=== PATIENT | female | born 2000 | race Caucasian/White ===

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

== ENCOUNTER 2019-02-26 12:25 | Emergency (ER) | payer MEDICAID ==
[2019-02-26] MEDS ORDERED: PROTONIX 40 MG IV IV ONE ×2 (13:05→13:10)
[2019-02-26] MEDS ORDERED: Sodium Chloride 0.9% 1000 ML 1,000 ML IV STA (13:05)
[2019-02-26] MEDS ORDERED: Zofran 4 MG/2 ML VIAL IV ONE (13:05)
[2019-02-26] MEDS ORDERED: Zofran 4 MG/2 ML VIAL ONE (13:10)
[2019-02-26] MEDS ORDERED: Sodium Chloride 0.9% 1000 ML 1,000 ML ONE (13:11)
[2019-02-26 14:46] LABS: Appearance SLIGHTLY CLOUDY (CLEAR); Bacteria RARE /HPF (NEGATIVE); Bilirubin NEGATIVE (NEGATIVE); Blood LARGE Ery/ul (0-5); Glucose NEGATIVE (NEGATIVE); Ketones NEGATIVE (NEGATIVE); Leukocyte Esterase NEGATIVE (NEGATIVE); Mucus SLIGHT /HPF (NEGATIVE); Nitrite NEGATIVE (NEGATIVE); Protein,Urine Dip 30 (Negative); RBC 26-50 /HPF (0-2); Specific Gravity 1.017 (1.005-1.025); Urobilinogen NEGATIVE mg/dL (0-1)
[2019-02-26 14:46] LABS: ALBUMIN 3.8 g/dL (3.5-5.0); ALKALINE PHOSPHATASE 81 U/L (38-126); AMYLASE 78 U/L (30-110); ANION GAP 13.3 MEQ/L (5-15); BLOOD UREA NITROGEN 17 mg/dL (7-17); CHLORIDE 104 mmol/L (98-107); Calcium 9.5 mg/dL (8.4-10.2); Carbon Dioxide 26 mmol/L (22-30); Glucose 72 mg/dL (74-106); LIPASE 150 U/L (23-300); SGOT/AST 23 U/L (14-36); SGPT/ALT 13 U/L (0-35); SODIUM 139 mmol/L (137-145); Total Protein 7.6 g/dL (6.3-8.2)
[2019-02-26 14:50] LABS: Potassium 4.3 mmol/L (3.5-5.1)
[2019-02-26 14:51] LABS: Absolute Neutrophil Ct (ANC) 8.35 (1.4-6.9); BASOPHIL % 0.6 % (0.0-0.4); Basophil (Absolute #) 0.08 (0-0.4); Eosinophil % 4.2 % (0.00-5.0); Eosinophil (Absolute #) 0.57 (0-0.5); Hematocrit 39.2 % (35-47); Hemoglobin 12.6 gm/dl (12.0-16.0); Lymphocyte (Absolute #) 3.27 (1.0-4.6); Mean Cell Volume 86.7 fl (78-100); Mean Corpuscular Hemoglobin 27.9 pg (26-32); Mean Corpuscular Hgb Concent. 32.1 g/dl (32-36); Mean Platelet Volume 9.2 fl (7.5-11.0); Monocyte (Absolute #) 1.38 (0.0-1.3); Monocytes % 10.1 % (0.0-12.0); Neutrophil % 61.1 % (36.0-66.0); Platelet Count 293 K/mm3 (150-450); Red Blood Count 4.52 M/mm3 (4.1-5.4); Red Cell Distribution Width 14.3 % (11.5-14.0); White Blood Count 13.7 K/mm3 (4.0-10.5)
[2019-02-26 15:36] VITALS: PULSE 81
--- NOTE | 2019-02-26 16:38 | XRAY ---
Indication: Abdomen pain, nausea, and vomiting. Multiple contiguous axial images obtained through the abdomen and pelvis using 80 cc of Isovue-370 contrast only. Comparison: November 16, 2018. Lung bases again demonstrates minimal bibasilar fibrosis/scarring and benign left lower lobe subpleural noncalcified micronodule. No infiltrate or effusion. Heart is not enlarged. Noncontrasted stomach and bowel loops remain nonobstructed with normal appendix. New collapsing right ovary cyst with small cul-de-sac fluid. No walled off fluid collection or free air. Stable cholecystectomy clips. Remaining liver, pancreas, spleen, adrenal glands, kidneys, ureters, bladder, uterus, and aorta appear unremarkable. No pathological retroperitoneal lymphadenopathy. Osseous structures intact. Impression: 1. New collapsing right ovary cyst with small cul-de-sac fluid. 2. Remaining CT abdomen/pelvis with contrast exam is negative.
--- NOTE | 2019-02-26 16:46 | ERPHSYRPT ---
- History of Present Illness Time Seen by Provider: 02/26/19 12:45 Historian: patient Exam Limitations: no limitations Patient Subjective Stated Complaint: pt here for diffuse abd pain, off and on for weeks now, worse the last week. vomited x1 yesterday and today, no fever, she has been to and was told she had enlarged lymph nodes Triage Nursing Assessment: pt alert, walked in, resp easy, skin w/d/p. abd soft , no edema Physician History: patient is a 18-year-old white female who presents with a complaint of abdominal pain. She complains of "bad pain" in the upper abdomen which started a week ago she has had no fever chills or sweats she has had some nausea vomiting but no diarrhea no change in urination she has a gallbladder that has been removed in June of last year she's also a kidney biopsy and a bladder scope. She has autoimmune IgA nephropathy. Timing/Duration: week(s) (1), intermittent Quality: cramping, stabbing Abdominal Pain Onset Location: epigastric Pain Radiation: no radiation Modifying Factors: Improves With: vomiting Associated Symptoms: nausea Previous symptoms: no prior history Allergies/Adverse Reactions: amoxicillin Allergy (Verified 02/26/19 12:39) Hives cefaclor [From Ceclor] Allergy (Verified 02/26/19 12:39) Hives cefazolin Allergy (Verified 02/26/19 12:39) paroxetine [From Paxil] Allergy (Verified 02/26/19 12:39) hallucinations Home Medications: Albuterol Sulfate [Ventolin Hfa] 8 gm IH UD PRN 07/23/16 [History] Montelukast Sodium [Singulair] 10 mg PO DAILY 07/23/16 [History] Diazepam [Valium] 2 mg PO DAILY PRN 05/26/17 [History] Lisinopril [Zestril] 5 mg PO DAILY 06/09/18 [History] Sertraline HCl [Zoloft] 100 mg PO DAILY 06/09/18 [History] [place]-3 Fatty Acids/Fish Oil [Fish Oil 1,000 mg Capsule] 2,000 mg PO BID [History] Hx Tetanus, Diphtheria Vaccination/Date Given: Yes Hx Influenza Vaccination/Date Given: Yes Hx Pneumococcal Vaccination/Date Given: No Immunizations Up to Date: Yes - Review of Systems Constitutional: No Fever, No Chills Eyes: No Symptoms Ears, Nose, & Throat: No Symptoms Respiratory: No Cough, No Dyspnea Cardiac: No Chest Pain, No Edema, No Syncope Abdominal/Gastrointestinal: Abdominal Pain, Vomiting, No Diarrhea Genitourinary Symptoms: No Dysuria Musculoskeletal: No Back Pain, No Neck Pain Skin: No Rash Neurological: No Dizziness, No Focal Weakness, No Sensory Changes Psychological: No Symptoms Endocrine: No Symptoms All Other Systems: Reviewed and Negative - Past Medical History Pertinent Past Medical History: Yes Neurological History: No Pertinent History ENT History: No Pertinent History Cardiac History: Hypertension Respiratory History: Asthma Endocrine Medical History: No Pertinent History Musculoskeletal History: No Pertinent History GI Medical History: Gallbladder Disease History: Renal Disease Psycho-Social History: Anxiety Female Reproductive Disorders: No Pertinent History Other Medical History: IGA Nephropathy - Past Surgical History Past Surgical History: Yes Neuro Surgical History: No Pertinent History Cardiac: No Pertinent History Respiratory: No Pertinent History Gastrointestinal: Cholecystectomy Genitourinary: Other Musculoskeletal: No Pertinent History Female Surgical History: No Pertinent History Other Surgical History: Kidney Biopsy, Bladder scope - Social History Smoking Status: Never smoker Exposure to second hand smoke: Yes Drug Use: none Patient Lives Alone: No - Female History Hx Last Menstrual Period: week ago Hx Now: No - Nursing Vital Signs Nursing Vital Signs: Initial Vital Signs Temperature 98.8 F 02/26/19 12:33 Pulse Rate 89 02/26/19 12:33 Respiratory Rate 16 02/26/19 12:33 Blood Pressure 115/68 02/26/19 12:33 O2 Sat by Pulse Oximetry 115 H 02/26/19 12:33 Pain Scale Pain Intensity 7 - Physical Exam General Appearance: no apparent distress, alert Eye Exam: PERRL/EOMI, eyes nml inspection Ears, Nose, Throat Exam: normal ENT inspection, pharynx normal, moist mucous membranes Neck Exam: normal inspection, non-tender, supple, full range of motion Respiratory Exam: normal breath sounds, lungs clear, No respiratory distress Cardiovascular Exam: regular rate/rhythm, normal heart sounds Gastrointestinal/Abdomen Exam: normal bowel sounds, tenderness, No mass, No guarding, No rebound Back Exam: normal inspection, normal range of motion, No CVA tenderness, No vertebral tenderness Extremity Exam: normal inspection, normal range of motion, pelvis stable Neurologic Exam: alert, oriented x 3, cooperative, normal mood/affect, nml cerebellar function, sensation nml, No motor deficits Skin Exam: normal color, warm, dry SpO2: 99 - Course Nursing assessment & vital signs reviewed: Yes - CT Exams Abdomen/Pelvis CT Interpretation: Other (small right ovarian cyst otherwise negative) Ordered Tests: Active Orders 24 hr Category Date Time Status IV Insertion STAT Care 02/26/19 13:05 Active ABDOMEN AND PELVIS W CONTRAST [CT] Stat Exams 02/26/19 13:06 Completed CHEST 1 VIEW (PORTABLE) Stat Exams 02/26/19 13:06 Taken AMYLASE Stat Lab 02/26/19 14:30 Completed CBC W DIFF Stat Lab 02/26/19 13:05 Completed CMP Stat Lab 02/26/19 14:30 Completed CULTURE,URINE Stat Lab 02/26/19 13:25 Received HCG QUALITATIVE,SERUM Stat Lab 02/26/19 Completed LIPASE Stat Lab 02/26/19 14:30 Completed Lactic Acid Stat Lab 02/26/19 13:41 Completed UA W/RFX UR CULTURE Stat Lab 02/26/19 13:25 Completed Medication Summary Discontinued Medications Generic Name Dose Route Start Last Admin Trade Name Freq PRN Reason Stop Dose Admin Sodium Chloride 1,000 mls @ 999 mls/hr 02/26/19 13:05 02/26/19 14:45 Sodium Chloride 0.9% 1000 Ml IV 02/26/19 14:05 Infused .Q1H1M STA Infusion Sodium Chloride Confirm 02/26/19 13:11 Sodium Chloride 0.9% 1000 Ml Administered 02/26/19 13:12 Dose 1,000 mls @ ud .ROUTE .STK-MED ONE Ondansetron HCl 4 mg 02/26/19 13:05 02/26/19 13:14 Zofran 4 Mg/2 Ml Vial IV 02/26/19 13:06 4 mg STAT ONE Administration Ondansetron HCl Confirm 02/26/19 13:10 Zofran 4 Mg/2 Ml Vial Administered 02/26/19 13:11 Dose 4 mg .ROUTE .STK-MED ONE Pantoprazole Sodium 40 mg 02/26/19 13:05 02/26/19 13:14 Protonix 40 Mg Iv IV 02/26/19 13:06 40 mg STAT ONE Administration Pantoprazole Sodium Confirm 02/26/19 13:10 Protonix 40 Mg Iv Administered 02/26/19 13:11 Dose 40 mg IV .STK-MED ONE Lab/Rad Data: Laboratory Result Diagrams 02/26/19 13:05 02/26/19 14:30 Laboratory Results 02/26/19 02/26/19 02/26/19 Range/Units Unknown 14:30 13:41 WBC (4.0-10.5) K/mm3 RBC (4.1-5.4) M/mm3 Hgb (12.0-16.0) gm/dl Hct (35-47) % MCV (78-100) fl MCH (26-32) pg MCHC (32-36) g/dl RDW (11.5-14.0) % Plt Count (150-450) K/mm3 MPV (7.5-11.0) fl Gran % (36.0-66.0) % Eos # (Auto) (0-0.5) Absolute Lymphs (auto) (1.0-4.6) Absolute Monos (auto) (0.0-1.3) Lymphocytes % (24.0-44.0) % Monocytes % (0.0-12.0) % Eosinophils % (0.00-5.0) % Basophils % (0.0-0.4) % Absolute Granulocytes (1.4-6.9) Basophils # (0-0.4) Sodium 139 (137-145) mmol/L Potassium 4.3 (3.5-5.1) mmol/L Chloride 104 (98-107) mmol/L Carbon Dioxide 26 (22-30) mmol/L Anion Gap 13.3 (5-15) MEQ/L BUN 17 (7-17) mg/dL Creatinine 0.60 (0.52-1.04) mg/dL Estimated GFR > 60.0 ML/MIN Glucose 72 L (74-106) mg/dL Lactic Acid 1.4 (0.4-2.0) Calcium 9.5 (8.4-10.2) mg/dL Total Bilirubin 0.50 (0.2-1.3) mg/dL AST 23 (14-36) U/L ALT 13 (0-35) U/L Alkaline Phosphatase 81 (38-126) U/L Serum Total Protein 7.6 (6.3-8.2) g/dL Albumin 3.8 (3.5-5.0) g/dL Amylase 78 (30-110) U/L Lipase 150 (23-300) U/L Serum , Qual NEGATIVE (Negative) Urine Color (YELLOW) Urine Appearance (CLEAR) Urine pH (5-6) Ur Specific [place] (1.005-1.025) Urine Protein (Negative) Urine Ketones (NEGATIVE) Urine Blood (0-5) Kan/ul Urine Nitrite (NEGATIVE) Urine Bilirubin (NEGATIVE) Urine Urobilinogen (0-1) mg/dL Ur Leukocyte Esterase (NEGATIVE) Urine WBC (Auto) (0-5) /HPF Urine RBC (Auto) (0-2) /HPF U Epithel Cells (Auto) (FEW) /HPF Urine Bacteria (Auto) (NEGATIVE) /HPF Urine Mucus (Auto) (NEGATIVE) /HPF Urine Culture Reflexed (NO) Urine Glucose (NEGATIVE) mg/dL 02/26/19 02/26/19 Range/Units 13:25 13:05 WBC 13.7 H (4.0-10.5) K/mm3 RBC 4.52 (4.1-5.4) M/mm3 Hgb 12.6 (12.0-16.0) gm/dl Hct 39.2 (35-47) % MCV 86.7 (78-100) fl MCH 27.9 (26-32) pg MCHC 32.1 (32-36) g/dl RDW 14.3 H (11.5-14.0) % Plt Count 293 (150-450) K/mm3 MPV 9.2 (7.5-11.0) fl Gran % 61.1 (36.0-66.0) % Eos # (Auto) 0.57 H (0-0.5) Absolute Lymphs (auto) 3.27 (1.0-4.6) Absolute Monos (auto) 1.38 H (0.0-1.3) Lymphocytes % 24.0 (24.0-44.0) % Monocytes % 10.1 (0.0-12.0) % Eosinophils % 4.2 (0.00-5.0) % Basophils % 0.6 (0.0-0.4) % Absolute Granulocytes 8.35 H (1.4-6.9) Basophils # 0.08 (0-0.4) Sodium (137-145) mmol/L Potassium (3.5-5.1) mmol/L Chloride (98-107) mmol/L Carbon Dioxide (22-30) mmol/L Anion Gap (5-15) MEQ/L BUN (7-17) mg/dL Creatinine (0.52-1.04) mg/dL Estimated GFR ML/MIN Glucose (74-106) mg/dL Lactic Acid (0.4-2.0) Calcium (8.4-10.2) mg/dL Total Bilirubin (0.2-1.3) mg/dL AST (14-36) U/L ALT (0-35) U/L Alkaline Phosphatase (38-126) U/L Serum Total Protein (6.3-8.2) g/dL Albumin (3.5-5.0) g/dL Amylase (30-110) U/L Lipase (23-300) U/L Serum , Qual (Negative) Urine Color YELLOW (YELLOW) Urine Appearance SLIGHTLY CLOUDY (CLEAR) Urine pH 6.0 (5-6) Ur Specific [place] 1.017 (1.005-1.025) Urine Protein 30 (Negative) Urine Ketones NEGATIVE (NEGATIVE) Urine Blood LARGE (0-5) Kan/ul Urine Nitrite NEGATIVE (NEGATIVE) Urine Bilirubin NEGATIVE (NEGATIVE) Urine Urobilinogen NEGATIVE (0-1) mg/dL Ur Leukocyte Esterase NEGATIVE (NEGATIVE) Urine WBC (Auto) 6-10 (0-5) /HPF Urine RBC (Auto) 26-50 (0-2) /HPF U Epithel Cells (Auto) NONE (FEW) /HPF Urine Bacteria (Auto) RARE (NEGATIVE) /HPF Urine Mucus (Auto) SLIGHT (NEGATIVE) /HPF Urine Culture Reflexed YES (NO) Urine Glucose NEGATIVE (NEGATIVE) mg/dL - Progress Progress: improved - Departure Departure Disposition: Home Clinical Impression: Gastroenteritis Condition: Stable Critical Care Time: No Referrals: SARATH MARTINEZ [Primary Care Provider] - Prescriptions: Metoclopramide HCl 10 mg [Reglan 10 MG] 10 mg PO Q4-6HPRN PRN #10 tablet PRN Reason: Nausea/Vomiting PANTOPRAZOLE 40 mg Tablet [Protonix 40MG Tablet] 40 mg PO QAM 30 Days #30 tab
--- NOTE | 2019-02-26 16:50 | XRAY ---
Indication: Abdomen pain. Nausea and vomiting. Comparison: July 23, 2016. Portable chest demonstrates normal heart, lungs, and bony thorax.
[2019-02-26 17:05] VITALS: BP 105/61; O2SAT 97
== END 2019-02-26 17:05 | disposition home or self-care (01) ==
LOC: ED 12:25
DX: K52.9 Noninfective gastroenteritis and colitis, unspecified (principal); R82.81 Pyuria
CPT/HCPCS: 36000; 36415; 71045; 74177; 80053; 81001; 81025; 82150; 83605; 83690; 85025; 87086; 96360; 96374; 96375; 99284; J2405

== ENCOUNTER 2019-04-15 12:57 | Emergency (ER) | payer MEDICAID ==
[2019-04-15] MEDS ORDERED: Sodium Chloride 0.9% 1000 ML 1,000 ML IV STA ×2 (14:25→15:48)
[2019-04-15] MEDS ORDERED: Protonix 40MG Tablet PO ONE (14:25)
[2019-04-15] MEDS ORDERED: Zofran 4 MG/2 ML VIAL IV ONE ×2 (14:25→14:30)
[2019-04-15] MEDS ORDERED: Zofran 4 MG/2 ML VIAL ONE (14:38)
[2019-04-15] MEDS ORDERED: Sodium Chloride 0.9% 1000 ML 1,000 ML ONE ×2 (14:38→16:02)
[2019-04-15] MEDS ORDERED: PROTONIX 40 MG IV IV ONE ×2 (14:38→15:18)
--- NOTE | 2019-04-15 14:55 | XRAY ---
Indication: Pain, nausea, and vomiting. Comparison: February 26, 2019. Portable chest continues to demonstrate normal heart, lungs, and bony thorax.
[2019-04-15 15:36] LABS: Absolute Neutrophil Ct (ANC) 6.78 (1.4-6.9); BASOPHIL % 0.5 % (0.0-0.4); Basophil (Absolute #) 0.05 (0-0.4); Eosinophil % 3.9 % (0.00-5.0); Eosinophil (Absolute #) 0.43 (0-0.5); Hematocrit 40.3 % (35-47); Hemoglobin 13.2 gm/dl (12.0-16.0); Lymphocyte (Absolute #) 2.09 (1.0-4.6); Mean Cell Volume 84.5 fl (78-100); Mean Corpuscular Hemoglobin 27.7 pg (26-32); Mean Corpuscular Hgb Concent. 32.8 g/dl (32-36); Mean Platelet Volume 9.4 fl (7.5-11.0); Monocyte (Absolute #) 1.67 (0.0-1.3); Monocytes % 15.2 % (0.0-12.0); Neutrophil % 61.4 % (36.0-66.0); Platelet Count 314 K/mm3 (150-450); Red Blood Count 4.77 M/mm3 (4.1-5.4); Red Cell Distribution Width 13.9 % (11.5-14.0)
[2019-04-15 15:43] LABS: ALBUMIN 4.3 g/dL (3.5-5.0); ALKALINE PHOSPHATASE 77 U/L (38-126); AMYLASE 93 U/L (30-110); ANION GAP 14.8 MEQ/L (5-15); BLOOD UREA NITROGEN 21 mg/dL (7-17); CHLORIDE 99 mmol/L (98-107); Calcium 9.3 mg/dL (8.4-10.2); Carbon Dioxide 26 mmol/L (22-30); Creatinine 1 1.08 mg/dL (0.52-1.04); Glucose 85 mg/dL (74-106); LIPASE 109 U/L (23-300); Potassium 3.2 mmol/L (3.5-5.1); SGOT/AST 28 U/L (14-36); SGPT/ALT 18 U/L (0-35); SODIUM 137 mmol/L (137-145); Total Protein 8.4 g/dL (6.3-8.2)
[2019-04-15] MEDS ORDERED: Ativan 2 MG/1 ML VIAL IV ONE (15:59)
[2019-04-15] MEDS ORDERED: Ativan 2 MG/1 ML VIAL IM ONE (15:59)
[2019-04-15] MEDS ORDERED: Ativan 2 MG/1 ML VIAL ONE (16:02)
[2019-04-15 16:09] VITALS: BP 110/88; PULSE 88; O2SAT 100
--- NOTE | 2019-04-15 16:16 | XRAY ---
Indication: Pain, nausea, and vomiting. Multiple contiguous axial images obtained through the abdomen and pelvis using 80 cc of Isovue-370 contrast only. Comparison: February 26, 2019. Lung bases demonstrate stable benign left lower lobe noncalcified micronodule. No infiltrate or effusion. Heart is not enlarged. Noncontrasted stomach and bowel loops remain nonobstructed with normal appendix. Again previous cholecystectomy. No free fluid/air. Remaining liver, pancreas, spleen, adrenal glands, kidneys, ureters, bladder, uterus, and aorta appear normal in CT appearance and attenuation. No pathologic retroperitoneal lymphadenopathy. Osseous structures intact. Impression: Continued negative CT abdomen/pelvis with contrast exam.
[2019-04-15 16:17] LABS: Appearance CLOUDY (CLEAR); Bacteria MODERATE /HPF (NEGATIVE); Bilirubin NEGATIVE (NEGATIVE); Blood LARGE Ery/ul (0-5); Epithelial Cells RARE /HPF (FEW); Glucose NEGATIVE (NEGATIVE); Ketones TRACE (NEGATIVE); Leukocyte Esterase NEGATIVE (NEGATIVE); Mucus SLIGHT /HPF (NEGATIVE); Nitrite NEGATIVE (NEGATIVE); Protein,Urine Dip 100 (Negative); RBC >101 /HPF (0-2); Specific Gravity 1.017 (1.005-1.025); Urobilinogen NEGATIVE mg/dL (0-1); WBC 0-2 /HPF (0-5)
[2019-04-15 16:38] LABS: Slide Review 1 YES
--- NOTE | 2019-04-15 16:57 | ERPHSYRPT ---
- History of Present Illness Time Seen by Provider: 04/15/19 13:30 Historian: patient Exam Limitations: no limitations Patient Subjective Stated Complaint: Pt states "I have not been able to keep anything down in the last 4 days. I went to [facility] and they tested me for the flu and it was negative." Triage Nursing Assessment: Pt presented alert and oriented X 3, skin pwd PT ambulates with a steady upright gait, able to speak in clear full sentences pt in no apparent respiratory distress. Physician History: Is a 18-year-old white female who has had nausea and vomiting for 4 days with decreased urine output decreased wooden foods she has pain when she vomits she has some left flank pain she has an IgA or IgG nephropathy and chronic urinary tract infections. She says she has had sweats but no fever or chills. Timing/Duration: day(s) (4) Activities at Onset: none Quality: fullness Severity of Pain-Max: moderate Severity of Pain-Current: moderate Modifying Factors: Improves With: vomiting Associated Symptoms: nausea, vomiting Previous symptoms: same symptoms as today Allergies/Adverse Reactions: amoxicillin Allergy (Verified 02/26/19 12:39) Hives cefaclor [From Ceclor] Allergy (Verified 02/26/19 12:39) Hives cefazolin Allergy (Verified 02/26/19 12:39) paroxetine [From Paxil] Allergy (Verified 02/26/19 12:39) hallucinations Home Medications: Albuterol Sulfate [Ventolin Hfa] 8 gm IH UD PRN 07/23/16 [History] Montelukast Sodium [Singulair] 10 mg PO DAILY 07/23/16 [History] Diazepam [Valium] 2 mg PO DAILY PRN 05/26/17 [History] Sertraline HCl [Zoloft] 100 mg PO DAILY 06/09/18 [History] lisinopriL [Zestril] 5 mg PO DAILY 06/09/18 [History] [place]-3 Fatty Acids/Fish Oil [Fish Oil 1,000 mg Capsule] 2,000 mg PO BID [History] Nitrofurantoin Macro 100 mg [Macrobid 100MG Capsule] 100 mg PO BID [History] Hx Tetanus, Diphtheria Vaccination/Date Given: Yes Hx Influenza Vaccination/Date Given: Yes Hx Pneumococcal Vaccination/Date Given: No Immunizations Up to Date: Yes - Review of Systems Constitutional: No Fever, No Chills Eyes: No Symptoms Ears, Nose, & Throat: No Symptoms Respiratory: No Cough, No Dyspnea Cardiac: No Chest Pain, No Edema, No Syncope Abdominal/Gastrointestinal: Abdominal Pain, Nausea, Vomiting, No Diarrhea Genitourinary Symptoms: No Dysuria Musculoskeletal: No Back Pain, No Neck Pain Skin: No Rash Neurological: No Dizziness, No Focal Weakness, No Sensory Changes Psychological: No Symptoms Endocrine: No Symptoms All Other Systems: Reviewed and Negative - Past Medical History Pertinent Past Medical History: Yes Neurological History: No Pertinent History ENT History: No Pertinent History Cardiac History: Hypertension Respiratory History: Asthma Endocrine Medical History: No Pertinent History Musculoskeletal History: No Pertinent History GI Medical History: Gallbladder Disease History: Renal Disease Psycho-Social History: Anxiety Female Reproductive Disorders: No Pertinent History Other Medical History: IGA Nephropathy - Past Surgical History Past Surgical History: Yes Neuro Surgical History: No Pertinent History Cardiac: No Pertinent History Respiratory: No Pertinent History Gastrointestinal: Cholecystectomy Genitourinary: Other Musculoskeletal: No Pertinent History Female Surgical History: No Pertinent History Other Surgical History: Kidney Biopsy, Bladder scope - Social History Smoking Status: Never smoker Exposure to second hand smoke: Yes Drug Use: none Patient Lives Alone: No - Female History Hx Last Menstrual Period: 04/05/2019 Hx Now: No - Nursing Vital Signs Nursing Vital Signs: Initial Vital Signs Temperature 98.2 F 04/15/19 13:18 Pulse Rate 92 H 04/15/19 13:18 Respiratory Rate 20 04/15/19 13:18 Blood Pressure 120/92 04/15/19 13:18 O2 Sat by Pulse Oximetry 97 04/15/19 13:18 Pain Scale Pain Intensity 0 - Physical Exam General Appearance: mild distress, alert Eye Exam: PERRL/EOMI, eyes nml inspection Ears, Nose, Throat Exam: normal ENT inspection, pharynx normal, moist mucous membranes Neck Exam: normal inspection, non-tender, supple, full range of motion Respiratory Exam: normal breath sounds, lungs clear, No respiratory distress Cardiovascular Exam: regular rate/rhythm, normal heart sounds Gastrointestinal/Abdomen Exam: soft, No tenderness, No mass Back Exam: normal inspection, normal range of motion, No CVA tenderness, No vertebral tenderness Extremity Exam: normal inspection, normal range of motion, pelvis stable Neurologic Exam: alert, oriented x 3, cooperative, normal mood/affect, nml cerebellar function, sensation nml, No motor deficits Skin Exam: normal color, warm, dry SpO2: 100 - Course Nursing assessment & vital signs reviewed: Yes - CT Exams Abdomen/Pelvis CT Interpretation: Other (CT read as essentially normal unchanged) Ordered Tests: Active Orders 24 hr Category Date Time Status IV Insertion STAT Care 04/15/19 14:25 Active ABDOMEN AND PELVIS W CONTRAST [CT] Stat Exams 04/15/19 14:28 Completed CHEST 1 VIEW (PORTABLE) Stat Exams 04/15/19 14:27 Completed AMYLASE Stat Lab 04/15/19 15:20 Completed CBC W DIFF Stat Lab 04/15/19 15:20 Completed CMP Stat Lab 04/15/19 15:20 Completed CULTURE,URINE Stat Lab 04/15/19 15:06 Received HCG,QUALITATIVE URINE Stat Lab 04/15/19 15:23 Completed LIPASE Stat Lab 04/15/19 15:20 Completed Lactic Acid Stat Lab 04/15/19 15:20 Completed UA W/RFX UR CULTURE Stat Lab 04/15/19 15:06 Completed Medication Summary Discontinued Medications Generic Name Dose Route Start Last Admin Trade Name Freq PRN Reason Stop Dose Admin Sodium Chloride 1,000 mls @ 999 mls/hr 04/15/19 14:25 04/15/19 15:17 Sodium Chloride 0.9% 1000 Ml IV 04/15/19 15:25 999 mls/hr .Q1H1M STA Administration Sodium Chloride Confirm 04/15/19 14:38 Sodium Chloride 0.9% 1000 Ml Administered 04/15/19 14:39 Dose 1,000 mls @ ud .ROUTE .STK-MED ONE Sodium Chloride 1,000 mls @ 999 mls/hr 04/15/19 15:48 04/15/19 16:04 Sodium Chloride 0.9% 1000 Ml IV 04/15/19 16:48 999 mls/hr .Q1H1M STA Administration Sodium Chloride Confirm 04/15/19 16:02 Sodium Chloride 0.9% 1000 Ml Administered 04/15/19 16:03 Dose 1,000 mls @ ud .ROUTE .STK-MED ONE Lorazepam 1 mg 04/15/19 15:59 04/15/19 16:12 Ativan 2 Mg/1 Ml Vial IM 04/15/19 16:00 Not Given STAT ONE Lorazepam 1 mg 04/15/19 15:59 04/15/19 16:04 Ativan 2 Mg/1 Ml Vial IV 04/15/19 16:00 1 mg STAT ONE Administration Lorazepam Confirm 04/15/19 16:02 Ativan 2 Mg/1 Ml Vial Administered 04/15/19 16:03 Dose 2 mg .ROUTE .STK-MED ONE Ondansetron HCl 4 mg 04/15/19 14:25 04/15/19 14:39 Zofran 4 Mg/2 Ml Vial IV 04/15/19 14:26 Not Given STAT ONE Ondansetron HCl 4 mg 04/15/19 14:30 04/15/19 15:18 Zofran 4 Mg/2 Ml Vial IV 04/15/19 14:31 4 mg STAT ONE Administration Ondansetron HCl Confirm 04/15/19 14:38 Zofran 4 Mg/2 Ml Vial Administered 04/15/19 14:39 Dose 4 mg .ROUTE .STK-MED ONE Pantoprazole Sodium 40 mg 04/15/19 14:25 04/15/19 15:18 Protonix 40mg Tablet PO 04/15/19 14:26 Not Given STAT ONE Pantoprazole Sodium Confirm 04/15/19 14:38 Protonix 40 Mg Iv Administered 04/15/19 14:39 Dose 40 mg IV .STK-MED ONE Pantoprazole Sodium 40 mg 04/15/19 15:18 04/15/19 15:19 Protonix 40 Mg Iv IV 04/15/19 15:19 40 mg STAT ONE Administration Lab/Rad Data: Laboratory Result Diagrams 04/15/19 15:20 04/15/19 15:20 Laboratory Results 04/15/19 04/15/19 04/15/19 Range/Units 15:23 15:20 15:20 WBC (4.0-10.5) K/mm3 RBC (4.1-5.4) M/mm3 Hgb (12.0-16.0) gm/dl Hct (35-47) % MCV (78-100) fl MCH (26-32) pg MCHC (32-36) g/dl RDW (11.5-14.0) % Plt Count (150-450) K/mm3 MPV (7.5-11.0) fl Gran % (36.0-66.0) % Eos # (Auto) (0-0.5) Absolute Lymphs (auto) (1.0-4.6) Absolute Monos (auto) (0.0-1.3) Lymphocytes % (24.0-44.0) % Monocytes % (0.0-12.0) % Eosinophils % (0.00-5.0) % Basophils % (0.0-0.4) % Absolute Granulocytes (1.4-6.9) Basophils # (0-0.4) Sodium 137 (137-145) mmol/L Potassium 3.2 L (3.5-5.1) mmol/L Chloride 99 (98-107) mmol/L Carbon Dioxide 26 (22-30) mmol/L Anion Gap 14.8 (5-15) MEQ/L BUN 21 H (7-17) mg/dL Creatinine 1.08 H (0.52-1.04) mg/dL Estimated GFR > 60.0 ML/MIN Glucose 85 (74-106) mg/dL Lactic Acid 1.0 (0.4-2.0) Calcium 9.3 (8.4-10.2) mg/dL Total Bilirubin 0.60 (0.2-1.3) mg/dL AST 28 (14-36) U/L ALT 18 (0-35) U/L Alkaline Phosphatase 77 (38-126) U/L Serum Total Protein 8.4 H (6.3-8.2) g/dL Albumin 4.3 (3.5-5.0) g/dL Amylase 93 (30-110) U/L Lipase 109 (23-300) U/L Urine Color (YELLOW) Urine Appearance (CLEAR) Urine pH (5-6) Ur Specific [place] (1.005-1.025) Urine Protein (Negative) Urine Ketones (NEGATIVE) Urine Blood (0-5) Kan/ul Urine Nitrite (NEGATIVE) Urine Bilirubin (NEGATIVE) Urine Urobilinogen (0-1) mg/dL Ur Leukocyte Esterase (NEGATIVE) Urine WBC (Auto) (0-5) /HPF Urine RBC (Auto) (0-2) /HPF U Epithel Cells (Auto) (FEW) /HPF Urine Bacteria (Auto) (NEGATIVE) /HPF Urine Mucus (Auto) (NEGATIVE) /HPF Urine Culture Reflexed (NO) Urine Glucose (NEGATIVE) mg/dL Urine HCG, Qual NEGATIVE (Negative) Slides for Path Review 04/15/19 04/15/19 Range/Units 15:20 15:06 WBC 11.0 H (4.0-10.5) K/mm3 RBC 4.77 (4.1-5.4) M/mm3 Hgb 13.2 (12.0-16.0) gm/dl Hct 40.3 (35-47) % MCV 84.5 (78-100) fl MCH 27.7 (26-32) pg MCHC 32.8 (32-36) g/dl RDW 13.9 (11.5-14.0) % Plt Count 314 (150-450) K/mm3 MPV 9.4 (7.5-11.0) fl Gran % 61.4 (36.0-66.0) % Eos # (Auto) 0.43 (0-0.5) Absolute Lymphs (auto) 2.09 (1.0-4.6) Absolute Monos (auto) 1.67 H (0.0-1.3) Lymphocytes % 19.0 L (24.0-44.0) % Monocytes % 15.2 H (0.0-12.0) % Eosinophils % 3.9 (0.00-5.0) % Basophils % 0.5 (0.0-0.4) % Absolute Granulocytes 6.78 (1.4-6.9) Basophils # 0.05 (0-0.4) Sodium (137-145) mmol/L Potassium (3.5-5.1) mmol/L Chloride (98-107) mmol/L Carbon Dioxide (22-30) mmol/L Anion Gap (5-15) MEQ/L BUN (7-17) mg/dL Creatinine (0.52-1.04) mg/dL Estimated GFR ML/MIN Glucose (74-106) mg/dL Lactic Acid (0.4-2.0) Calcium (8.4-10.2) mg/dL Total Bilirubin (0.2-1.3) mg/dL AST (14-36) U/L ALT (0-35) U/L Alkaline Phosphatase (38-126) U/L Serum Total Protein (6.3-8.2) g/dL Albumin (3.5-5.0) g/dL Amylase (30-110) U/L Lipase (23-300) U/L Urine Color YELLOW (YELLOW) Urine Appearance CLOUDY (CLEAR) Urine pH 5.0 (5-6) Ur Specific [place] 1.017 (1.005-1.025) Urine Protein 100 (Negative) Urine Ketones TRACE (NEGATIVE) Urine Blood LARGE (0-5) Kan/ul Urine Nitrite NEGATIVE (NEGATIVE) Urine Bilirubin NEGATIVE (NEGATIVE) Urine Urobilinogen NEGATIVE (0-1) mg/dL Ur Leukocyte Esterase NEGATIVE (NEGATIVE) Urine WBC (Auto) 0-2 (0-5) /HPF Urine RBC (Auto) >101 (0-2) /HPF U Epithel Cells (Auto) RARE (FEW) /HPF Urine Bacteria (Auto) MODERATE (NEGATIVE) /HPF Urine Mucus (Auto) SLIGHT (NEGATIVE) /HPF Urine Culture Reflexed YES (NO) Urine Glucose NEGATIVE (NEGATIVE) mg/dL Urine HCG, Qual (Negative) Slides for Path Review YES - Progress Progress: improved - Departure Departure Disposition: Home Clinical Impression: Intractable nausea and vomiting Condition: Stable Critical Care Time: No Referrals: SARATH MARTINEZ [Primary Care Provider] - Instructions: Vomiting -- Adult, Nausea -- Adult Prescriptions: Promethazine HCl 25 mg [Phenergan 25 mg] 25 mg PO Q8H PRN PRN #20 tablet PRN Reason: Nausea/Vomiting
== END 2019-04-15 18:01 | disposition home or self-care (01) ==
LOC: ED 12:57
DX: R11.2 Nausea with vomiting, unspecified (principal); Z79.899 Other long term (current) drug therapy; R10.9 Unspecified abdominal pain
CPT/HCPCS: 36000; 36415; 71045; 74177; 80053; 81001; 82150; 83605; 83690; 84703; 85025; 87086; 96360; 96361; 96374; 96375; 99285; J2060; J2405

== ENCOUNTER 2019-07-24 09:27 | Emergency (ER) | payer MEDICAID ==
--- NOTE | 2019-07-24 09:54 | ERPHSYRPT ---
- History of Present Illness Time Seen by Provider: 07/24/19 09:51 Source: patient Exam Limitations: no limitations Patient Subjective Stated Complaint: pt complains of left lower back, flank pain that wraps around to the left lower abdomen for approx 4-5 days. pt states she initially thought she had a stomach bug but her pain has not improved. pt reports chronic diarrhea since her gallbladder removal. Triage Nursing Assessment: pt is aox3, pupils perrl, afebrile, resps easy and non labored, cap refill < 3 seconds, radial pulses strong and equal, abd soft, tender to the LLQ, bowel sounds present normoactive x 4, pt skin pink warm dry. Physician History: pt complains of left lower back, flank pain that wraps around to the left lower abdomen for approx 4-5 days. pt states she initially thought she had a stomach bug but her pain has not improved. pt reports chronic diarrhea since her gallbladder removal. Timing/Duration: day(s) (4-5 days) Activites at Onset: none Quality: dullness Onset Location: left flank Pain Radiation: left flank Severity of Pain-Max: moderate Severity of Pain-Current: moderate Prior abdominal problems: none Sexual intercourse history: non-contributory Modifying Factors: Improves With: nothing Associated Symptoms: abdominal pain, dysuria, urinary frequency, No fever, No chills, No diaphoresis, No nausea, No vomiting, No , No loss of bladder control, No lower back pain Allergies/Adverse Reactions: amoxicillin Allergy (Verified 07/24/19 09:47) Hives cefaclor [From Ceclor] Allergy (Verified 07/24/19 09:47) Hives cefazolin Allergy (Verified 07/24/19 09:47) Hives paroxetine [From Paxil] Allergy (Verified 07/24/19 09:47) hallucinations Home Medications: Albuterol Sulfate [Ventolin Hfa] 8 gm IH UD PRN 07/23/16 [History] Montelukast Sodium [Singulair] 10 mg PO DAILY 07/23/16 [History] Diazepam [Valium] 2 mg PO DAILY PRN 05/26/17 [History] Sertraline HCl [Zoloft] 100 mg PO DAILY 06/09/18 [History] lisinopriL [Zestril] 5 mg PO DAILY 06/09/18 [History] [place]-3 Fatty Acids/Fish Oil [Fish Oil 1,000 mg Capsule] 2,000 mg PO BID [History] Norgestimate-Ethinyl Estradiol [Tri-Sprintec] 1 each PO DAILY 07/24/19 [History] Hx Tetanus, Diphtheria Vaccination/Date Given: Yes Hx Influenza Vaccination/Date Given: Yes Hx Pneumococcal Vaccination/Date Given: No Travel Risk - International Travel Have you traveled outside of the country in past 3 weeks: No Have you or anyone close to you been diagnosed with or: No Do your reside in a community with a known COVID-19 case?: Yes If Yes where:: [place] - Coronavirus Screening Has patient experienced Coronavirus symptoms: No - Review of Systems Constitutional: No Fever, No Chills Eyes: No Symptoms Ears, Nose, & Throat: No Symptoms Respiratory: No Cough, No Dyspnea Cardiac: No Chest Pain, No Edema, No Syncope Abdominal/Gastrointestinal: No Abdominal Pain, No Nausea, No Vomiting, No Diarrhea Genitourinary Symptoms: Dysuria, Frequency, Hesitancy, Urgency, Flank Pain, No Hematuria, No Incontinence, No Urinary Retention, No Menorrhagia, No Musculoskeletal: No Back Pain, No Neck Pain Skin: No Rash Neurological: No Dizziness, No Focal Weakness, No Sensory Changes Psychological: No Symptoms Endocrine: No Symptoms All Other Systems: Reviewed and Negative - Past Medical History Pertinent Past Medical History: Yes Neurological History: No Pertinent History ENT History: No Pertinent History Cardiac History: Hypertension Respiratory History: Asthma Endocrine Medical History: No Pertinent History Musculoskeletal History: No Pertinent History GI Medical History: Gallbladder Disease History: Renal Disease Psycho-Social History: Anxiety Female Reproductive Disorders: No Pertinent History Other Medical History: IGA Nephropathy - Past Surgical History Past Surgical History: Yes Neuro Surgical History: No Pertinent History Cardiac: No Pertinent History Respiratory: No Pertinent History Gastrointestinal: Cholecystectomy Genitourinary: Other Musculoskeletal: No Pertinent History Female Surgical History: No Pertinent History Other Surgical History: Kidney Biopsy, Bladder scope - Social History Smoking Status: Never smoker Exposure to second hand smoke: Yes Drug Use: none Patient Lives Alone: No - Female History Hx Last Menstrual Period: 07/05/19 Hx Now: No - Nursing Vital Signs Nursing Vital Signs: Initial Vital Signs Temperature 98.6 F 07/24/19 09:37 Pulse Rate 90 07/24/19 09:37 Respiratory Rate 16 07/24/19 09:37 Blood Pressure 128/84 07/24/19 09:37 O2 Sat by Pulse Oximetry 97 07/24/19 09:37 Pain Scale Pain Intensity 7 - Physical Exam General Appearance: no apparent distress, alert Eye Exam: PERRL/EOMI, eyes nml inspection Ears, Nose, Throat Exam: normal ENT inspection, TMs normal, pharynx normal, moist mucous membranes Neck Exam: normal inspection, non-tender, supple, full range of motion Respiratory Exam: normal breath sounds, lungs clear, No respiratory distress Cardiovascular Exam: regular rate/rhythm, normal heart sounds, normal peripheral pulses Gastrointestinal/Abdomen Exam: soft, No tenderness, No mass Back Exam: normal inspection, normal range of motion, No CVA tenderness, No vertebral tenderness Extremity Exam: normal inspection, normal range of motion, pelvis stable Neurologic Exam: alert, oriented x 3, cooperative, cooler servicer II-XII nml as tested, normal mood/affect, sensation nml, No motor deficits Skin Exam: normal color, warm, dry Lymphatic Exam: No adenopathy SpO2: 97 - Course Nursing assessment & vital signs reviewed: Yes Ordered Tests: Active Orders 24 hr Category Date Time Status ABDOMEN AND PELVIS W/0 CONTRAS [CT] Stat Exams 07/24/19 10:41 Taken CBC W DIFF Stat Lab 07/24/19 10:00 Completed CMP Stat Lab 07/24/19 10:00 Completed CULTURE,URINE Stat Lab 07/24/19 09:45 Received HCG, Quantitative (Inhouse) Stat Lab 07/24/19 10:00 Completed UA W/RFX UR CULTURE Stat Lab 07/24/19 09:45 Completed Urine Triage Profile Stat Lab 07/24/19 09:45 Completed Medication Summary Discontinued Medications Generic Name Dose Route Start Last Admin Trade Name Freq PRN Reason Stop Dose Admin Ketorolac Tromethamine 60 mg 07/24/19 10:51 07/24/19 11:10 Toradol 30 Mg Injection IM 07/24/19 10:52 60 mg STAT ONE Administration Ketorolac Tromethamine Confirm 07/24/19 11:04 Toradol 30 Mg Injection Administered 07/24/19 11:05 Dose 60 mg .ROUTE .[employer]-Nitronex ONE Lab/Rad Data: Laboratory Result Diagrams 07/24/19 10:00 07/24/19 10:00 Laboratory Results 07/24/19 07/24/19 07/24/19 Range/Units 10:00 10:00 10:00 WBC 13.2 H (4.0-10.5) K/mm3 RBC 4.73 (4.1-5.4) M/mm3 Hgb 13.3 (12.0-16.0) gm/dl Hct 40.1 (35-47) % MCV 84.8 (78-100) fl MCH 28.1 (26-32) pg MCHC 33.2 (32-36) g/dl RDW 13.7 (11.5-14.0) % Plt Count 349 (150-450) K/mm3 MPV 8.7 (7.5-11.0) fl Gran % 68.6 H (36.0-66.0) % Eos # (Auto) 0.44 (0-0.5) Absolute Lymphs (auto) 2.53 (1.0-4.6) Absolute Monos (auto) 1.12 (0.0-1.3) Lymphocytes % 19.1 L (24.0-44.0) % Monocytes % 8.5 (0.0-12.0) % Eosinophils % 3.3 (0.00-5.0) % Basophils % 0.5 (0.0-0.4) % Absolute Granulocytes 9.08 H (1.4-6.9) Basophils # 0.07 (0-0.4) Sodium 137 (137-145) mmol/L Potassium 3.6 (3.5-5.1) mmol/L Chloride 100 (98-107) mmol/L Carbon Dioxide 26 (22-30) mmol/L Anion Gap 14.5 (5-15) MEQ/L BUN 14 (7-17) mg/dL Creatinine 0.60 (0.52-1.04) mg/dL Estimated GFR > 60.0 ML/MIN Glucose 108 H (74-106) mg/dL Calcium 9.3 (8.4-10.2) mg/dL Total Bilirubin 0.40 (0.2-1.3) mg/dL AST 19 (14-36) U/L ALT 16 (0-35) U/L Alkaline Phosphatase 67 (38-126) U/L Serum Total Protein 8.1 (6.3-8.2) g/dL Albumin 4.1 (3.5-5.0) g/dL Beta HCG, Quant < 2.39 mIU/ml Urine Color (YELLOW) Urine Appearance (CLEAR) Urine pH (5-6) Ur Specific [place] (1.005-1.025) Urine Protein (Negative) Urine Ketones (NEGATIVE) Urine Blood (0-5) Kan/ul Urine Nitrite (NEGATIVE) Urine Bilirubin (NEGATIVE) Urine Urobilinogen (0-1) mg/dL Ur Leukocyte Esterase (NEGATIVE) Urine WBC (Auto) (0-5) /HPF Urine RBC (Auto) (0-2) /HPF U Epithel Cells (Auto) (FEW) /HPF Urine Bacteria (Auto) (NEGATIVE) /HPF Urine Mucus (Auto) (NEGATIVE) /HPF Urine Culture Reflexed (NO) Urine Glucose (NEGATIVE) mg/dL Urine Opiates Level (NEGATIVE) Ur Methadone (NEGATIVE) Urine Barbiturates (NEGATIVE) Ur Phencyclidine (PCP) (NEGATIVE) Urine Amphetamine (NEGATIVE) U Benzodiazepine Level (NEGATIVE) Urine Cocaine (NEGATIVE) Urine Marijuana (THC) (NEGATIVE) 07/24/19 07/24/19 Range/Units 09:45 09:45 WBC (4.0-10.5) K/mm3 RBC (4.1-5.4) M/mm3 Hgb (12.0-16.0) gm/dl Hct (35-47) % MCV (78-100) fl MCH (26-32) pg MCHC (32-36) g/dl RDW (11.5-14.0) % Plt Count (150-450) K/mm3 MPV (7.5-11.0) fl Gran % (36.0-66.0) % Eos # (Auto) (0-0.5) Absolute Lymphs (auto) (1.0-4.6) Absolute Monos (auto) (0.0-1.3) Lymphocytes % (24.0-44.0) % Monocytes % (0.0-12.0) % Eosinophils % (0.00-5.0) % Basophils % (0.0-0.4) % Absolute Granulocytes (1.4-6.9) Basophils # (0-0.4) Sodium (137-145) mmol/L Potassium (3.5-5.1) mmol/L Chloride (98-107) mmol/L Carbon Dioxide (22-30) mmol/L Anion Gap (5-15) MEQ/L BUN (7-17) mg/dL Creatinine (0.52-1.04) mg/dL Estimated GFR ML/MIN Glucose (74-106) mg/dL Calcium (8.4-10.2) mg/dL Total Bilirubin (0.2-1.3) mg/dL AST (14-36) U/L ALT (0-35) U/L Alkaline Phosphatase (38-126) U/L Serum Total Protein (6.3-8.2) g/dL Albumin (3.5-5.0) g/dL Beta HCG, Quant mIU/ml Urine Color YELLOW (YELLOW) Urine Appearance SLIGHTLY CLOUDY (CLEAR) Urine pH 5.0 (5-6) Ur Specific [place] 1.013 (1.005-1.025) Urine Protein 30 (Negative) Urine Ketones NEGATIVE (NEGATIVE) Urine Blood LARGE (0-5) Kan/ul Urine Nitrite NEGATIVE (NEGATIVE) Urine Bilirubin NEGATIVE (NEGATIVE) Urine Urobilinogen NEGATIVE (0-1) mg/dL Ur Leukocyte Esterase NEGATIVE (NEGATIVE) Urine WBC (Auto) 0-2 (0-5) /HPF Urine RBC (Auto) 6-10 (0-2) /HPF U Epithel Cells (Auto) NONE (FEW) /HPF Urine Bacteria (Auto) RARE (NEGATIVE) /HPF Urine Mucus (Auto) SLIGHT (NEGATIVE) /HPF Urine Culture Reflexed YES (NO) Urine Glucose NEGATIVE (NEGATIVE) mg/dL Urine Opiates Level NEGATIVE (NEGATIVE) Ur Methadone NEGATIVE (NEGATIVE) Urine Barbiturates NEGATIVE (NEGATIVE) Ur Phencyclidine (PCP) NEGATIVE (NEGATIVE) Urine Amphetamine NEGATIVE (NEGATIVE) U Benzodiazepine Level NEGATIVE (NEGATIVE) Urine Cocaine NEGATIVE (NEGATIVE) Urine Marijuana (THC) NEGATIVE (NEGATIVE) - Progress Progress: improved Air Movement: good Blood Culture(s) Obtained: No Antibiotics given: No Counseled pt/family regarding: lab results, diagnosis, need for follow-up, rad results - Departure Departure Disposition: Home Clinical Impression: UTI (urinary tract infection) Qualifiers: Urinary tract infection type: acute cystitis Hematuria presence: without hematuria Qualified Code(s): N30.00 - Acute cystitis without hematuria Condition: Stable Critical Care Time: No Referrals: SARATH MARTINEZ [Primary Care Provider] - Instructions: Flank Pain Additional Instructions: Discharge/Care Plan COLEMARISA FALGUNI ATWOOD was seen on 07/24/19 in the Emergency Room. The patient was counseled regarding Diagnosis,Lab results, Imaging studies, need for follow up and when to return to the Emergency Room. Prescriptions given: Discharge Note I have spoken with the patient and/or caregivers. I have explained the patient' s condition, diagnosis and treatment plan based on the information available to me at this time. I have answered the patient's and/or caregiver's questions and addressed any concerns. The patient and/or caregivers have as good understanding of the patient's diagnosis, condition and treatment plan as can be expected at this point. The vital signs have been stable. The patient's condition is stable and appropriate for discharge from the emergency department. The patient will pursue further outpatient evaluation with the primary care physician or other designated or consulting physician as outlined in the discharge instructions. The patient and/or caregivers are agreeable to this plan of care and follow-up instructions have been explained in detail. The patient and/or caregivers have received these instruction. The patient/and or caregivers are aware that any significant change in condition or worsening of symptoms should prompt an immediate return to this or the closest emergency department or call 911. Prescriptions: Smz/Tmp Ds Tablet [Bactrim Ds Tablet] 1 udtab PO BID #20 tablet
[2019-07-24 10:05] LABS: Absolute Neutrophil Ct (ANC) 9.08 (1.4-6.9); BASOPHIL % 0.5 % (0.0-0.4); Basophil (Absolute #) 0.07 (0-0.4); Eosinophil % 3.3 % (0.00-5.0); Eosinophil (Absolute #) 0.44 (0-0.5); Hematocrit 40.1 % (35-47); Hemoglobin 13.3 gm/dl (12.0-16.0); Lymphocyte (Absolute #) 2.53 (1.0-4.6); Lymphocytes % 19.1 % (24.0-44.0); Mean Cell Volume 84.8 fl (78-100); Mean Corpuscular Hemoglobin 28.1 pg (26-32); Mean Corpuscular Hgb Concent. 33.2 g/dl (32-36); Mean Platelet Volume 8.7 fl (7.5-11.0); Monocyte (Absolute #) 1.12 (0.0-1.3); Monocytes % 8.5 % (0.0-12.0); Neutrophil % 68.6 % (36.0-66.0); Platelet Count 349 K/mm3 (150-450); Red Blood Count 4.73 M/mm3 (4.1-5.4); Red Cell Distribution Width 13.7 % (11.5-14.0); White Blood Count 13.2 K/mm3 (4.0-10.5)
[2019-07-24 10:10] LABS: Amphetamine,Urine NEGATIVE (NEGATIVE); Appearance SLIGHTLY CLOUDY (CLEAR); Bacteria RARE /HPF (NEGATIVE); Barbiturate,Urine NEGATIVE (NEGATIVE); Benzodiazepine,Urine NEGATIVE (NEGATIVE); Bilirubin NEGATIVE (NEGATIVE); Blood LARGE Ery/ul (0-5); Cocaine,Urine NEGATIVE (NEGATIVE); Glucose NEGATIVE (NEGATIVE); Ketones NEGATIVE (NEGATIVE); Leukocyte Esterase NEGATIVE (NEGATIVE); Methadone,Urine NEGATIVE (NEGATIVE); Mucus SLIGHT /HPF (NEGATIVE); Nitrite NEGATIVE (NEGATIVE); Opiate,Urine NEGATIVE (NEGATIVE); PCP,Urine NEGATIVE (NEGATIVE); Protein,Urine Dip 30 (Negative); Specific Gravity 1.013 (1.005-1.025); THC,Urine NEGATIVE (NEGATIVE); Urobilinogen NEGATIVE mg/dL (0-1); WBC 0-2 /HPF (0-5)
[2019-07-24 10:19] LABS: ALBUMIN 4.1 g/dL (3.5-5.0); ALKALINE PHOSPHATASE 67 U/L (38-126); ANION GAP 14.5 MEQ/L (5-15); BLOOD UREA NITROGEN 14 mg/dL (7-17); CHLORIDE 100 mmol/L (98-107); Calcium 9.3 mg/dL (8.4-10.2); Carbon Dioxide 26 mmol/L (22-30); Glucose 108 mg/dL (74-106); Potassium 3.6 mmol/L (3.5-5.1); SGOT/AST 19 U/L (14-36); SGPT/ALT 16 U/L (0-35); SODIUM 137 mmol/L (137-145); Total Protein 8.1 g/dL (6.3-8.2)
[2019-07-24] MEDS ORDERED: TORAdol 30 mg Injection IM ONE (10:51)
[2019-07-24] MEDS ORDERED: TORAdol 30 mg Injection ONE (11:04)
[2019-07-24 12:20] VITALS: BP 114/65; PULSE 80; O2SAT 98
--- NOTE | 2019-07-24 20:30 | XRAY ---
Indication: Left flank pain 4 days. Multiple contiguous axial images obtained through the abdomen and pelvis without contrast as ordered. Comparison: April 15, 2019. Lung bases demonstrates stable benign left lower lobe noncalcified micronodule. No infiltrate or effusion. Heart is not enlarged. Noncontrasted stomach and bowel loops appear nonobstructed. Normal appendix. No free fluid/air. Again previous cholecystectomy. Remaining liver, pancreas, spleen, adrenal glands, kidneys, ureters, bladder, uterus, and aorta appear unremarkable for noncontrast exam. Osseous structures intact. Impression: Continued negative CT abdomen/pelvis without contrast exam. Comment: Preliminary interpretation was made by [facility]. No critical discrepancy.
== END 2019-07-24 12:22 | disposition home or self-care (01) ==
LOC: ED 09:27
DX: N30.00 Acute cystitis without hematuria (principal); Z79.899 Other long term (current) drug therapy
CPT/HCPCS: 36415; 74176; 80053; 80307; 81001; 84702; 85025; 87086; 96372; 99284; J1885

== ENCOUNTER 2020-05-29 13:13 | Emergency (ER) | payer OTHER ==
--- NOTE | 2020-05-29 13:19 | ERPHSYRPT ---
- History of Present Illness Time Seen by Provider: 05/29/20 13:18 Source: patient Exam Limitations: no limitations Physician History: This is a 19-year-old overweight white female has a history of hypertension and asthma who presents with shortness of breath since yesterday. She did use her inhaler as prescribed. She did not notice a significant difference. She stated she is fine when she is not moving but when she is active she has noticed increasing shortness of breath. She does not have chest pain she has had no fever. She has a mild cough. Patient states that she has been moving boxes and there has been a lot of dust floating around when she was packing and moving boxes. Timing/Duration: yesterday Activities at Onset: activity Severity of Dyspnea-Max: moderate Severity of Dyspnea-Current: mild Possible Cause: occasional episodes Modifying Factors: Improves With: activity, coughing Associated Symptoms: cough, No wheezing, No weakness, No heaviness Allergies/Adverse Reactions: amoxicillin Allergy (Verified 05/29/20 13:22) Hives cefaclor [From Ceclor] Allergy (Verified 05/29/20 13:22) Hives cefazolin Allergy (Verified 05/29/20 13:22) Hives paroxetine [From Paxil] Allergy (Verified 05/29/20 13:22) hallucinations Home Medications: Albuterol Sulfate [Ventolin Hfa] 8 gm IH UD PRN 07/23/16 [History] Montelukast Sodium [Singulair] 10 mg PO DAILY 07/23/16 [History] Diazepam [Valium] 2 mg PO DAILY PRN 05/26/17 [History] Sertraline HCl [Zoloft] 100 mg PO DAILY 06/09/18 [History] lisinopriL [Zestril] 5 mg PO DAILY 06/09/18 [History] [place]-3 Fatty Acids/Fish Oil [Fish Oil 1,000 mg Capsule] 2,000 mg PO BID 06/15/18 [History] Norgestimate-Ethinyl Estradiol [Tri-Sprintec] 1 each PO DAILY 07/24/19 [History] Hx Tetanus, Diphtheria Vaccination/Date Given: Yes Hx Influenza Vaccination/Date Given: Yes Hx Pneumococcal Vaccination/Date Given: No Travel Risk - International Travel Have you traveled outside of the country in past 3 weeks: No - Coronavirus Screening Are you exhibiting any of the following symptoms?: No Close contact with a COVID-19 positive Pt in past 14-21 Days: No - Vaccine Status Have you recieved a Covid-19 vaccination: No - Review of Systems Constitutional: No Symptoms Eyes: No Symptoms Ears, Nose, & Throat: No Symptoms Respiratory: Cough, Dyspnea on Exertion (BORJAS) Cardiac: No Symptoms Abdominal/Gastrointestinal: No Symptoms Genitourinary Symptoms: No Symptoms Musculoskeletal: No Symptoms Skin: No Symptoms Neurological: No Symptoms Psychological: No Symptoms Endocrine: No Symptoms Hematologic/Lymphatic: No Symptoms Immunological/Allergic: No Symptoms All Other Systems: Reviewed and Negative - Past Medical History Pertinent Past Medical History: Yes Neurological History: No Pertinent History ENT History: No Pertinent History Cardiac History: No Pertinent History Respiratory History: Asthma Endocrine Medical History: Other Musculoskeletal History: No Pertinent History GI Medical History: Gallbladder Disease History: Renal Disease Psycho-Social History: Anxiety Female Reproductive Disorders: No Pertinent History Other Medical History: IGA Nephropathy stage 1 - Past Surgical History Past Surgical History: Yes Neuro Surgical History: No Pertinent History Cardiac: No Pertinent History Respiratory: No Pertinent History Gastrointestinal: Cholecystectomy Genitourinary: Other Musculoskeletal: No Pertinent History Female Surgical History: No Pertinent History Other Surgical History: Kidney Biopsy, Bladder scope - Social History Smoking Status: Never smoker Exposure to second hand smoke: Yes Drug Use: none Patient Lives Alone: No - Nursing Vital Signs Nursing Vital Signs: Initial Vital Signs Temperature 97.6 F 05/29/20 13:14 Pulse Rate 84 05/29/20 13:14 Respiratory Rate 15 05/29/20 13:14 Blood Pressure 155/112 05/29/20 13:14 O2 Sat by Pulse Oximetry 98 05/29/20 13:14 Pain Scale Pain Intensity 4 - Physical Exam General Appearance: no apparent distress, alert, anxiety, obese Eye Exam: PERRL/EOMI, eyes nml inspection Ears, Nose, Throat Exam: hearing grossly normal Neck Exam: normal inspection, non-tender, supple, full range of motion Respiratory Exam: normal breath sounds, lungs clear, airway intact, No chest tenderness, No respiratory distress Cardiovascular/Chest Exam: normal heart sounds, regular rate/rhythm Abdominal/Gastrointestinal Exam: soft, normal bowel sounds, No tenderness Rectal Exam: not done Extremity Exam: non-tender, normal range of motion, normal inspection, normal capillary refill, no calf tenderness, no pedal edema, pelvis stable Neurologic Exam: alert, oriented x 3, cooperative, sales operations specialist II-XII nml as tested, normal mood/affect, nml cerebellar function, nml station & gait, sensation nml Skin Exam: normal color, warm, dry Lymphatic Exam: No adenopathy SpO2 Interpretation: normal O2 Delivery: Room Air - Course Nursing assessment & vital signs reviewed: Yes EKG Interpreted by Me: RATE (81), Sinus Rhythm, NORMAL AXIS, NORMAL INTERVALS, NORMAL QRS, NORMAL ST-T, Other (No acute ischemic changes. Comparison EKG 07/23/2016 no significant or acute changes) Ordered Tests: Active Orders 24 hr Category Date Time Status Binding Stitcher STAT Care 05/29/20 13:43 Active EKG-ER Only STAT Care 05/29/20 13:42 Active IV Insertion STAT Care 05/29/20 13:42 Active Pulse Oximetry (ED) STAT Care 05/29/20 13:42 Active CHEST 1 VIEW (PORTABLE) Stat Exams 05/29/20 13:43 Completed CHEST WITH CONTRAST [CT] Stat Exams 05/29/20 14:32 Completed CBC W DIFF Stat Lab 05/29/20 14:00 Completed CMP Stat Lab 05/29/20 14:00 Completed D-DIMER QUANTITATIVE Stat Lab 05/29/20 14:00 Completed INFLUENZA A+B ADELITA Stat Lab 05/29/20 14:00 Completed Lactic Acid Stat Lab 05/29/20 13:42 Completed NT PRO BNP Stat Lab 05/29/20 14:00 Completed TROPONIN Q3H Lab 05/29/20 14:00 Completed TROPONIN Q3H Lab 05/29/20 16:45 Ordered TROPONIN Q3H Lab 05/29/20 19:45 Ordered TROPONIN Q3H Lab 05/29/20 22:45 Ordered TROPONIN Q3H Lab 05/30/20 01:45 Ordered Medication Summary Generic Name Dose Route Start Last Admin Trade Name Freq PRN Reason Stop Dose Admin Sodium Chloride 500 mls @ 500 mls/hr 05/29/20 14:32 05/29/20 15:05 Sodium Chloride 0.9% 500 Ml IV 05/29/20 15:31 500 mls/hr .Q1H ONE Administration Discontinued Medications Generic Name Dose Route Start Last Admin Trade Name Freq PRN Reason Stop Dose Admin Sodium Chloride Confirm 05/29/20 15:01 Sodium Chloride 0.9% 500 Ml Administered 05/29/20 15:02 Dose 500 mls @ ud IV .STK-MED ONE Methylprednisolone Sodium Succinate 125 mg 05/29/20 13:42 05/29/20 13:54 Solu-Medrol 125 Mg IV 05/29/20 13:43 125 mg STAT ONE Administration Methylprednisolone Sodium Succinate Confirm 05/29/20 13:52 Solu-Medrol 125 Mg Administered 05/29/20 13:53 Dose 125 mg .ROUTE .[facility] ONE Lab/Rad Data: Laboratory Result Diagrams 05/29/20 14:00 05/29/20 14:00 Laboratory Results 05/29/20 05/29/20 05/29/20 Range/Units 14:00 14:00 14:00 WBC (4.0-10.5) K/mm3 RBC (4.1-5.4) M/mm3 Hgb (12.0-16.0) gm/dl Hct (35-47) % MCV (78-100) fl MCH (26-32) pg MCHC (32-36) g/dl RDW (11.5-14.0) % Plt Count (150-450) K/mm3 MPV (7.5-11.0) fl Gran % (36.0-66.0) % Eos # (Auto) (0-0.5) Absolute Lymphs (auto) (1.0-4.6) Absolute Monos (auto) (0.0-1.3) Lymphocytes % (24.0-44.0) % Monocytes % (0.0-12.0) % Eosinophils % (0.00-5.0) % Basophils % (0.0-0.4) % Absolute Granulocytes (1.4-6.9) Basophils # (0-0.4) D-Dimer 822 H* (215-500) ng/mL Sodium (137-145) mmol/L Potassium (3.5-5.1) mmol/L Chloride (98-107) mmol/L Carbon Dioxide (22-30) mmol/L Anion Gap (5-15) MEQ/L BUN (7-17) mg/dL Creatinine (0.52-1.04) mg/dL Estimated GFR ML/MIN Glucose (74-106) mg/dL Lactic Acid (0.4-2.0) Calcium (8.4-10.2) mg/dL Total Bilirubin (0.2-1.3) mg/dL AST (14-36) U/L ALT (0-35) U/L Alkaline Phosphatase (38-126) U/L Troponin I < 0.012 (0.000-0.034) ng/mL NT-Pro-B Natriuret Pep (0-450) pg/mL Serum Total Protein (6.3-8.2) g/dL Albumin (3.5-5.0) g/dL Influenza Type A Ag NEGATIVE (NEGATIVE) Influenza Type B Ag NEGATIVE (NEGATIVE) 05/29/20 05/29/20 05/29/20 Range/Units 14:00 14:00 13:42 WBC 9.5 (4.0-10.5) K/mm3 RBC 4.69 (4.1-5.4) M/mm3 Hgb 12.9 (12.0-16.0) gm/dl Hct 40.1 (35-47) % MCV 85.5 (78-100) fl MCH 27.5 (26-32) pg MCHC 32.2 (32-36) g/dl RDW 14.8 H (11.5-14.0) % Plt Count 361 (150-450) K/mm3 MPV 9.2 (7.5-11.0) fl Gran % 54.0 (36.0-66.0) % Eos # (Auto) 0.50 (0-0.5) Absolute Lymphs (auto) 2.85 (1.0-4.6) Absolute Monos (auto) 0.97 (0.0-1.3) Lymphocytes % 29.9 (24.0-44.0) % Monocytes % 10.2 (0.0-12.0) % Eosinophils % 5.2 H (0.00-5.0) % Basophils % 0.7 (0.0-0.4) % Absolute Granulocytes 5.14 (1.4-6.9) Basophils # 0.07 (0-0.4) D-Dimer (215-500) ng/mL Sodium 139 (137-145) mmol/L Potassium 3.7 (3.5-5.1) mmol/L Chloride 101 (98-107) mmol/L Carbon Dioxide 27 (22-30) mmol/L Anion Gap 14.4 (5-15) MEQ/L BUN 13 (7-17) mg/dL Creatinine 0.66 (0.52-1.04) mg/dL Estimated GFR > 60.0 ML/MIN Glucose 111 H (74-106) mg/dL Lactic Acid 1.4 (0.4-2.0) Calcium 9.5 (8.4-10.2) mg/dL Total Bilirubin 0.40 (0.2-1.3) mg/dL AST 20 (14-36) U/L ALT 14 (0-35) U/L Alkaline Phosphatase 58 (38-126) U/L Troponin I (0.000-0.034) ng/mL NT-Pro-B Natriuret Pep 68.3 (0-450) pg/mL Serum Total Protein 7.8 (6.3-8.2) g/dL Albumin 4.0 (3.5-5.0) g/dL Influenza Type A Ag (NEGATIVE) Influenza Type B Ag (NEGATIVE) - Progress Progress: improved, re-examined Air Movement: good Progress Note: 05/29/20 14:31 cxr shows no acute cardiopulmonary process Blood Culture(s) Obtained: No Antibiotics given: No Counseled pt/family regarding: lab results, diagnosis, need for follow-up, rad results - Departure Departure Disposition: Home Clinical Impression: Acute exacerbation of asthma with allergic rhinitis Condition: Stable Critical Care Time: No Referrals: SARATH COLINDRES [Primary Care Provider] - Additional Instructions: Use your inhaler every 4 hours as discussed. Take your medication as prescribed. Follow-up with your primary care physician for further management. Prescriptions: Prednisone 5 mg [Deltasone 5 mg] 5 mg PO TID #12 tablet
[2020-05-29] MEDS ORDERED: solu-MEDROL 125 MG IV ONE (13:42)
[2020-05-29] MEDS ORDERED: solu-MEDROL 125 MG ONE (13:52)
--- NOTE | 2020-05-29 14:02 | XRAY ---
Indication: Cough. Short of breath. Comparison: March 15, 2019. Portable chest remains clear. Heart not enlarged. Bony thorax intact. No new/acute findings.
[2020-05-29 14:12] LABS: Absolute Neutrophil Ct (ANC) 5.14 (1.4-6.9); BASOPHIL % 0.7 % (0.0-0.4); Basophil (Absolute #) 0.07 (0-0.4); Eosinophil % 5.2 % (0.00-5.0); Hematocrit 40.1 % (35-47); Hemoglobin 12.9 gm/dl (12.0-16.0); Lymphocyte (Absolute #) 2.85 (1.0-4.6); Lymphocytes % 29.9 % (24.0-44.0); Mean Cell Volume 85.5 fl (78-100); Mean Corpuscular Hemoglobin 27.5 pg (26-32); Mean Corpuscular Hgb Concent. 32.2 g/dl (32-36); Mean Platelet Volume 9.2 fl (7.5-11.0); Monocyte (Absolute #) 0.97 (0.0-1.3); Monocytes % 10.2 % (0.0-12.0); Platelet Count 361 K/mm3 (150-450); Red Blood Count 4.69 M/mm3 (4.1-5.4); Red Cell Distribution Width 14.8 % (11.5-14.0); White Blood Count 9.5 K/mm3 (4.0-10.5)
[2020-05-29 14:28] VITALS: BP 117/86
[2020-05-29 14:31] LABS: ALKALINE PHOSPHATASE 58 U/L (38-126); ANION GAP 14.4 MEQ/L (5-15); BLOOD UREA NITROGEN 13 mg/dL (7-17); CHLORIDE 101 mmol/L (98-107); Calcium 9.5 mg/dL (8.4-10.2); Carbon Dioxide 27 mmol/L (22-30); Creatinine 1 0.66 mg/dL (0.52-1.04); EST GLOMERULAR FILTRATION RATE > 60.0 ML/MIN; Glucose 111 mg/dL (74-106); NT PRO BNP 68.3 pg/mL (0-450); Potassium 3.7 mmol/L (3.5-5.1); SGOT/AST 20 U/L (14-36); SGPT/ALT 14 U/L (0-35); SODIUM 139 mmol/L (137-145); Total Protein 7.8 g/dL (6.3-8.2)
[2020-05-29] MEDS ORDERED: Sodium Chloride 0.9% 500 ML 500 ML IV ONE ×2 (14:32→15:01)
[2020-05-29 14:35] LABS: INFLUENZA A NEGATIVE (NEGATIVE); INFLUENZA B NEGATIVE (NEGATIVE)
[2020-05-29 15:11] VITALS: PULSE 78; O2SAT 96
--- NOTE | 2020-05-29 15:16 | XRAY ---
Indication: Chest pain, cough, short of breath. Elevated d-dimer. Multiple contiguous axial images obtained through the chest using 80 cc Isovue 370 contrast and PE protocol. Comparison: None There is adequate opacification of the pulmonary arteries to include the lobar and segmental branches. No pulmonary embolus. Heart is borderline enlarged. Aorta is normal in course and caliber. No pathologic mediastinal/hilar lymphadenopathy. Lungs inflated and clear. Bony thorax intact. Limited upper abdomen demonstrates cholecystectomy clips. Impression: Negative pulmonary embolus. No acute cardiopulmonary abnormalities.
== END 2020-05-29 15:39 | disposition home or self-care (01) ==
LOC: ED 13:13
DX: J45.909 Unspecified asthma, uncomplicated (principal)
CPT/HCPCS: 36000; 36415; 71045; 71260; 80053; 83605; 83880; 84484; 85025; 85379; 87400; 93005; 93041; 94760; 96360; 96374; 99284; J2930

== ENCOUNTER 2020-11-06 13:25 | Emergency (ER) | payer OTHER ==
--- NOTE | 2020-11-06 15:25 | ERPHSYRPT ---
- History of Present Illness Historian: patient Exam Limitations: no limitations Patient Subjective Stated Complaint: " I have abdominal pain that radiates throughout my abdomen. It radiates around my lower back and I've had continuous diarrhea and everything I eat goes straight through me". Triage Nursing Assessment: Pt presents to ER with complaints to diffused abdomin al pains that radiate to flank region. Abdomen is soft but tender. Complains of diarrhea that has been constant. States has nausea. States that symptoms began last . Pt is alert and orientedx3. Skin pink, warm, and dry. Denies vomiting. Respirations are easy at this time. Physician History: 20 yo wf w diffuse abdominal pain x 4 days. Pain is 5/10 but has been up to a 9. It is sharp and worse w movement. She has had diarrhea and mild nausea-vomiting. Cough/fever/dysuria/hematuria/hematemesis/melena/hematochezia are all denies. Timing/Duration: other (4 days) Activities at Onset: rest Quality: sharpness Abdominal Pain Onset Location: generalized abdomen Pain Radiation: no radiation Severity of Pain-Max: severe Severity of Pain-Current: moderate Modifying Factors: Improves With: movement Associated Symptoms: diarrhea, loss of appetite, nausea, vomiting, No back, No chest pain, No diaphoresis, No fever/chills, No fatigue, No headache, No heartburn, No neck pain, No rash, No shortness of breath, No syncope, No weakness Previous symptoms: no prior history Allergies/Adverse Reactions: amoxicillin Allergy (Verified 11/06/20 14:24) Hives cefaclor [From Ceclor] Allergy (Verified 11/06/20 14:24) Hives cefazolin Allergy (Verified 11/06/20 14:24) Hives paroxetine [From Paxil] Allergy (Verified 11/06/20 14:24) hallucinations Home Medications: Albuterol Sulfate [Ventolin Hfa] 8 gm IH UD PRN 07/23/16 [History] Montelukast Sodium [Singulair] 10 mg PO DAILY 07/23/16 [History] Diazepam [Valium] 2 mg PO DAILY PRN 05/26/17 [History] Sertraline HCl [Zoloft] 100 mg PO DAILY 06/09/18 [History] lisinopriL [Zestril] 5 mg PO DAILY 06/09/18 [History] [place]-3 Fatty Acids/Fish Oil [Fish Oil 1,000 mg Capsule] 2,000 mg PO BID 06/15/18 [History] Norgestimate-Ethinyl Estradiol [Tri-Sprintec] 1 each PO DAILY 07/24/19 [History] Hx Tetanus, Diphtheria Vaccination/Date Given: Yes Hx Influenza Vaccination/Date Given: No Hx Pneumococcal Vaccination/Date Given: Yes Immunizations Up to Date: Yes Travel Risk - International Travel Have you traveled outside of the country in past 3 weeks: No - Coronavirus Screening Are you exhibiting any of the following symptoms?: No Symptoms: Vomiting/Diarrhea Close contact with a COVID-19 positive Pt in past 14-21 Days: No - Vaccine Status Have you recieved a Covid-19 vaccination: No - Review of Systems Constitutional: No Symptoms Eyes: No Symptoms Ears, Nose, & Throat: No Symptoms Respiratory: No Symptoms Cardiac: No Symptoms Abdominal/Gastrointestinal: No Symptoms, Abdominal Pain, Nausea, Vomiting, Diarrhea Genitourinary Symptoms: No Symptoms Musculoskeletal: No Symptoms Skin: No Symptoms Neurological: No Symptoms Psychological: No Symptoms Endocrine: No Symptoms Hematologic/Lymphatic: No Symptoms Immunological/Allergic: No Symptoms - Past Medical History Pertinent Past Medical History: Yes Neurological History: No Pertinent History ENT History: No Pertinent History Cardiac History: No Pertinent History Respiratory History: Asthma Endocrine Medical History: Other Musculoskeletal History: No Pertinent History GI Medical History: Gallbladder Disease History: Renal Disease Psycho-Social History: Anxiety Female Reproductive Disorders: No Pertinent History Other Medical History: IGA Nephropathy stage 1 - Past Surgical History Past Surgical History: Yes Neuro Surgical History: No Pertinent History Cardiac: No Pertinent History Respiratory: No Pertinent History Gastrointestinal: Cholecystectomy Genitourinary: Other Musculoskeletal: No Pertinent History Female Surgical History: No Pertinent History Other Surgical History: Kidney Biopsy, Bladder scope - Social History Smoking Status: Never smoker Exposure to second hand smoke: No Drug Use: none Patient Lives Alone: No Significant Family History: no pertinent family hx - Female History Hx Last Menstrual Period: 10/25/20 Hx Now: No - Nursing Vital Signs Nursing Vital Signs: Initial Vital Signs Temperature 97.4 F 11/06/20 14:19 Pulse Rate 97 H 11/06/20 14:19 Respiratory Rate 16 11/06/20 14:19 Blood Pressure 143/83 11/06/20 14:19 O2 Sat by Pulse Oximetry 97 11/06/20 14:19 Pain Scale Pain Intensity 1 Hypertensive - Physical Exam General Appearance: no apparent distress Eye Exam: PERRL/EOMI, eyes nml inspection Ears, Nose, Throat Exam: normal ENT inspection, TMs normal, pharynx normal, myron st mucous membranes Neck Exam: normal inspection, non-tender, supple, full range of motion, No meningismus, No mass, No Brudzinski, No Kernig's Respiratory Exam: normal breath sounds, lungs clear, airway intact, No respiratory distress Cardiovascular Exam: regular rate/rhythm, normal heart sounds, normal peripheral pulses, No murmur Gastrointestinal/Abdomen Exam: soft, normal bowel sounds, tenderness (Mild diffuse ttp wo guarding or rebound) Extremity Exam: normal inspection, normal range of motion Neurologic Exam: alert, oriented x 3, cooperative, artificial glass eye maker II-XII nml as tested, normal mood/affect, nml cerebellar function, nml station & gait, sensation nml, No motor deficits, No sensory deficit Skin Exam: normal color, warm, dry Lymphatic Exam: No adenopathy SpO2 Interpretation: normal SpO2: 97 O2 Delivery: Room Air - Course Nursing assessment & vital signs reviewed: Yes - CT Exams Abdomen/Pelvis CT Interpretation: Discussed w/radiologist (NAD) Ordered Tests: Active Orders 24 hr Category Date Time Status ABDOMEN AND PELVIS W CONTRAST [CT] Stat Exams 11/06/20 17:08 Taken AMYLASE Stat Lab 11/06/20 15:53 Completed CBC W DIFF Stat Lab 11/06/20 15:53 Completed CMP Stat Lab 11/06/20 15:53 Completed CULTURE,URINE Stat Lab 11/06/20 15:32 Received HCG QUALITATIVE,SERUM Stat Lab 11/06/20 15:53 Completed LIPASE Stat Lab 11/06/20 15:53 Completed UA W/RFX UR CULTURE Stat Lab 11/06/20 15:32 Completed Medication Summary Discontinued Medications Generic Name Dose Route Start Last Admin Trade Name Freq PRN Reason Stop Dose Admin Ketorolac Tromethamine 30 mg 11/06/20 19:07 11/06/20 19:33 Toradol 30 Mg Injection IV 11/06/20 19:08 30 mg STAT ONE Administration Ketorolac Tromethamine Confirm 11/06/20 19:28 Toradol 30 Mg Injection Administered 11/06/20 19:29 Dose 30 mg .ROUTE .STK-MED ONE Lab/Rad Data: Laboratory Result Diagrams 11/06/20 15:53 11/06/20 15:53 Laboratory Results 11/06/20 11/06/20 11/06/20 Range/Units 15:53 15:53 15:53 WBC 13.9 H (4.0-10.5) K/mm3 RBC 4.95 (4.1-5.4) M/mm3 Hgb 13.9 (12.0-16.0) gm/dl Hct 42.3 (35-47) % MCV 85.5 (78-100) fl MCH 28.1 (26-32) pg MCHC 32.9 (32-36) g/dl RDW 14.6 H (11.5-14.0) % Plt Count 380 (150-450) K/mm3 MPV 8.8 (7.5-11.0) fl Gran % 67.5 H (36.0-66.0) % Eos # (Auto) 0.50 (0-0.5) Absolute Lymphs (auto) 2.79 (1.0-4.6) Absolute Monos (auto) 1.16 (0.0-1.3) Lymphocytes % 20.1 L (24.0-44.0) % Monocytes % 8.4 (0.0-12.0) % Eosinophils % 3.6 (0.00-5.0) % Basophils % 0.4 (0.0-0.4) % Absolute Granulocytes 9.38 H (1.4-6.9) Basophils # 0.06 (0-0.4) Sodium 136 L (137-145) mmol/L Potassium 4.0 (3.5-5.1) mmol/L Chloride 99 (98-107) mmol/L Carbon Dioxide 27 (22-30) mmol/L Anion Gap 14.9 (5-15) MEQ/L BUN 13 (7-17) mg/dL Creatinine 0.65 (0.52-1.04) mg/dL Estimated GFR > 60.0 ML/MIN Glucose 81 (74-106) mg/dL Calcium 10.1 (8.4-10.2) mg/dL Total Bilirubin 0.40 (0.2-1.3) mg/dL AST 19 (14-36) U/L ALT 17 (0-35) U/L Alkaline Phosphatase 79 (38-126) U/L Serum Total Protein 8.1 (6.3-8.2) g/dL Albumin 4.2 (3.5-5.0) g/dL Amylase 88 (30-110) U/L Lipase 125 (23-300) U/L Serum , Qual NEGATIVE (Negative) Urine Color (YELLOW) Urine Appearance (CLEAR) Urine pH (5-6) Ur Specific [place] (1.005-1.025) Urine Protein (Negative) Urine Ketones (NEGATIVE) Urine Blood (0-5) Kan/ul Urine Nitrite (NEGATIVE) Urine Bilirubin (NEGATIVE) Urine Urobilinogen (0-1) mg/dL Ur Leukocyte Esterase (NEGATIVE) Urine WBC (Auto) (0-5) /HPF Urine RBC (Auto) (0-2) /HPF U Epithel Cells (Auto) (FEW) /HPF Urine Bacteria (Auto) (NEGATIVE) /HPF Urine Mucus (Auto) (NEGATIVE) /HPF Urine Culture Reflexed (NO) Urine Glucose (NEGATIVE) mg/dL 11/06/20 Range/Units 15:32 WBC (4.0-10.5) K/mm3 RBC (4.1-5.4) M/mm3 Hgb (12.0-16.0) gm/dl Hct (35-47) % MCV (78-100) fl MCH (26-32) pg MCHC (32-36) g/dl RDW (11.5-14.0) % Plt Count (150-450) K/mm3 MPV (7.5-11.0) fl Gran % (36.0-66.0) % Eos # (Auto) (0-0.5) Absolute Lymphs (auto) (1.0-4.6) Absolute Monos (auto) (0.0-1.3) Lymphocytes % (24.0-44.0) % Monocytes % (0.0-12.0) % Eosinophils % (0.00-5.0) % Basophils % (0.0-0.4) % Absolute Granulocytes (1.4-6.9) Basophils # (0-0.4) Sodium (137-145) mmol/L Potassium (3.5-5.1) mmol/L Chloride (98-107) mmol/L Carbon Dioxide (22-30) mmol/L Anion Gap (5-15) MEQ/L BUN (7-17) mg/dL Creatinine (0.52-1.04) mg/dL Estimated GFR ML/MIN Glucose (74-106) mg/dL Calcium (8.4-10.2) mg/dL Total Bilirubin (0.2-1.3) mg/dL AST (14-36) U/L ALT (0-35) U/L Alkaline Phosphatase (38-126) U/L Serum Total Protein (6.3-8.2) g/dL Albumin (3.5-5.0) g/dL Amylase (30-110) U/L Lipase (23-300) U/L Serum , Qual (Negative) Urine Color YELLOW (YELLOW) Urine Appearance SLIGHTLY CLOUDY (CLEAR) Urine pH 5.0 (5-6) Ur Specific [place] 1.020 (1.005-1.025) Urine Protein 100 (Negative) Urine Ketones NEGATIVE (NEGATIVE) Urine Blood LARGE (0-5) Kan/ul Urine Nitrite NEGATIVE (NEGATIVE) Urine Bilirubin NEGATIVE (NEGATIVE) Urine Urobilinogen NEGATIVE (0-1) mg/dL Ur Leukocyte Esterase NEGATIVE (NEGATIVE) Urine WBC (Auto) 3-5 (0-5) /HPF Urine RBC (Auto) 0-2 (0-2) /HPF U Epithel Cells (Auto) RARE (FEW) /HPF Urine Bacteria (Auto) NONE (NEGATIVE) /HPF Urine Mucus (Auto) SLIGHT (NEGATIVE) /HPF Urine Culture Reflexed YES (NO) Urine Glucose NEGATIVE (NEGATIVE) mg/dL - Progress Progress Note: 11/06/20 19:15 30mg IV Toradol Will see patient in: office Counseled pt/family regarding: lab results, diagnosis, rad results - Departure Departure Disposition: Home Clinical Impression: Abdominal pain Condition: Stable Critical Care Time: No Referrals: SARATH MATHIS [Primary Care Provider] - Instructions: Acute Abdomen (Belly Pain) Additional Instructions: Return to ER for increasing pain or temperature greater than 100.5 Prescriptions: Dicyclomine HCl 20 mg [Bentyl 20 mg] 20 mg PO Q6H PRN PRN #14 tablet PRN Reason: abdominal pain
[2020-11-06 15:55] LABS: Absolute Neutrophil Ct (ANC) 9.38 (1.4-6.9); BASOPHIL % 0.4 % (0.0-0.4); Basophil (Absolute #) 0.06 (0-0.4); Eosinophil % 3.6 % (0.00-5.0); Hematocrit 42.3 % (35-47); Hemoglobin 13.9 gm/dl (12.0-16.0); Lymphocyte (Absolute #) 2.79 (1.0-4.6); Lymphocytes % 20.1 % (24.0-44.0); Mean Cell Volume 85.5 fl (78-100); Mean Corpuscular Hemoglobin 28.1 pg (26-32); Mean Corpuscular Hgb Concent. 32.9 g/dl (32-36); Mean Platelet Volume 8.8 fl (7.5-11.0); Monocyte (Absolute #) 1.16 (0.0-1.3); Monocytes % 8.4 % (0.0-12.0); Neutrophil % 67.5 % (36.0-66.0); Platelet Count 380 K/mm3 (150-450); Red Blood Count 4.95 M/mm3 (4.1-5.4); Red Cell Distribution Width 14.6 % (11.5-14.0); White Blood Count 13.9 K/mm3 (4.0-10.5)
[2020-11-06 16:09] LABS: Appearance SLIGHTLY CLOUDY (CLEAR); Bilirubin NEGATIVE (NEGATIVE); Blood LARGE Ery/ul (0-5); Epithelial Cells RARE /HPF (FEW); Glucose NEGATIVE (NEGATIVE); Ketones NEGATIVE (NEGATIVE); Leukocyte Esterase NEGATIVE (NEGATIVE); Mucus SLIGHT /HPF (NEGATIVE); Nitrite NEGATIVE (NEGATIVE); Protein,Urine Dip 100 (Negative); RBC 0-2 /HPF (0-2); Urobilinogen NEGATIVE mg/dL (0-1)
[2020-11-06 16:25] LABS: ALBUMIN 4.2 g/dL (3.5-5.0); ALKALINE PHOSPHATASE 79 U/L (38-126); AMYLASE 88 U/L (30-110); ANION GAP 14.9 MEQ/L (5-15); BLOOD UREA NITROGEN 13 mg/dL (7-17); CHLORIDE 99 mmol/L (98-107); Calcium 10.1 mg/dL (8.4-10.2); Carbon Dioxide 27 mmol/L (22-30); Creatinine 1 0.65 mg/dL (0.52-1.04); EST GLOMERULAR FILTRATION RATE > 60.0 ML/MIN; Glucose 81 mg/dL (74-106); LIPASE 125 U/L (23-300); SGOT/AST 19 U/L (14-36); SGPT/ALT 17 U/L (0-35); SODIUM 136 mmol/L (137-145); Total Protein 8.1 g/dL (6.3-8.2)
[2020-11-06] MEDS ORDERED: TORAdol 30 mg Injection IV ONE (19:07)
[2020-11-06 19:17] VITALS: O2SAT 97
[2020-11-06] MEDS ORDERED: TORAdol 30 mg Injection ONE (19:28)
[2020-11-06 20:09] VITALS: BP 112/85; PULSE 85
[2020-11-07 05:26] LABS: Slide Review 1 YES
--- NOTE | 2020-11-07 08:34 | XRAY ---
Indication: Abdomen pain. Multiple contiguous axial images obtained through the abdomen and pelvis using 80 cc Isovue 370 contrast. Comparison: July 24, 2019. Lung bases demonstrates stable tiny benign left lower lobe noncalcified micronodule. No infiltrate or effusion heart not enlarged. Noncontrasted stomach and bowel loops nonobstructed again with normal appendix. Again previous cholecystectomy. No free fluid/air. Remaining liver, pancreas, spleen, adrenal glands, kidneys, ureters, bladder, uterus, and aorta are unremarkable. No pathological retroperitoneal lymphadenopathy. Osseous structures intact. Impression: Continued negative CT abdomen/pelvis with contrast exam.
== END 2020-11-06 20:09 | disposition home or self-care (01) ==
LOC: ED 13:25
DX: R10.9 Unspecified abdominal pain (principal); R19.7 Diarrhea, unspecified; M54.5 Low back pain; R11.2 Nausea with vomiting, unspecified
CPT/HCPCS: 36000; 36415; 74177; 80053; 81001; 81025; 82150; 83690; 85025; 87086; 96374; 99284; J1885

== ENCOUNTER 2021-02-26 14:18 | Emergency (ER) | payer OTHER ==
[2021-02-26 15:10] LABS: Basophil (Absolute #) 0.07 (0-0.4); Eosinophil % 3.5 % (0.00-5.0); Eosinophil (Absolute #) 0.41 (0-0.5); Hematocrit 42.8 % (35-47); Lymphocyte (Absolute #) 2.61 (1.0-4.6); Lymphocytes % 22.3 % (24.0-44.0); Mean Cell Volume 84.6 fl (78-100); Mean Corpuscular Hemoglobin 27.7 pg (26-32); Mean Corpuscular Hgb Concent. 32.7 g/dl (32-36); Mean Platelet Volume 8.8 fl (7.5-11.0); Monocyte (Absolute #) 0.99 (0.0-1.3); Monocytes % 8.5 % (0.0-12.0); Neutrophil % 65.1 % (36.0-66.0); Platelet Count 388 K/mm3 (150-450); Red Blood Count 5.06 M/mm3 (4.1-5.4); Red Cell Distribution Width 14.4 % (11.5-14.0); White Blood Count 11.7 K/mm3 (4.0-10.5)
[2021-02-26 15:11] LABS: Appearance SLIGHTLY CLOUDY (CLEAR); Bacteria RARE /HPF (NEGATIVE); Bilirubin NEGATIVE (NEGATIVE); Blood LARGE Ery/ul (0-5); Glucose NEGATIVE (NEGATIVE); Ketones NEGATIVE (NEGATIVE); Leukocyte Esterase NEGATIVE (NEGATIVE); Mucus SLIGHT /HPF (NEGATIVE); Nitrite NEGATIVE (NEGATIVE); Protein,Urine Dip 100 (Negative); RBC 0-2 /HPF (0-2); Urobilinogen NEGATIVE mg/dL (0-1)
[2021-02-26 15:21] LABS: ALKALINE PHOSPHATASE 83 U/L (38-126); ANION GAP 14.3 MEQ/L (5-15); BLOOD UREA NITROGEN 12 mg/dL (7-17); CHLORIDE 100 mmol/L (98-107); Calcium 9.4 mg/dL (8.4-10.2); Carbon Dioxide 24 mmol/L (22-30); Creatinine 1 0.57 mg/dL (0.52-1.04); EST GLOMERULAR FILTRATION RATE > 60.0 ML/MIN; Glucose 84 mg/dL (74-106); Potassium 3.6 mmol/L (3.5-5.1); SGOT/AST 21 U/L (14-36); SGPT/ALT 21 U/L (0-35); SODIUM 135 mmol/L (137-145); Total Protein 7.4 g/dL (6.3-8.2)
[2021-02-26 15:23] LABS: Amphetamine,Urine NEGATIVE (NEGATIVE); Barbiturate,Urine NEGATIVE (NEGATIVE); Benzodiazepine,Urine NEGATIVE (NEGATIVE); Cocaine,Urine NEGATIVE (NEGATIVE); Methadone,Urine NEGATIVE (NEGATIVE); Opiate,Urine NEGATIVE (NEGATIVE); PCP,Urine NEGATIVE (NEGATIVE); THC,Urine NEGATIVE (NEGATIVE)
[2021-02-26 16:07] LABS: COVID AG -BINAX NOW RAPID TEST NEGATIVE (NEGATIVE)
[2021-02-26 16:13] VITALS: O2SAT 97
--- NOTE | 2021-02-26 18:10 | ERPHSYRPT ---
- History of Present Illness Source: patient Exam Limitations: no limitations Patient Subjective Stated Complaint: " I've been having thoughts of suicide. I even attempted to cut my wrist with scissors last night. Last night, I got in a verbal fight with my aunt and then my mom. That's what caused me to want to harm myself. I thought about taking a bunch of my Zoloft pills but I didn't. I keep h earing voices in my head to "end it". " Triage Nursing Assessment: Pt drove herself to ER and presents with suicidal thoughts, plan, and attempt. Pt has noted superficial cuts to left forearm from self inflicted wounds from scissors. Pt is anxious and crying. Pt keeps apolog izing for being her. She wants help for her depression and suicidal thoughts. Pt states new stressors include aruging with family. Pt skin is pink, warm, and dry. Respirations are easy. Pt ambulates and communicates without difficulty. Pt states had plan to overdose on her Zoloft but she didn't. Timing/Duration: yesterday, constant, gradual onset, worse Severity of Symptoms-Max: moderate Severity of Symptoms-Current: moderate Context related to: parent Suicidal thoughts: gesture Associated Symptoms: anxiety, depressed, frustrated Hx Tetanus, Diphtheria Vaccination/Date Given: Yes Hx Influenza Vaccination/Date Given: Yes Hx Pneumococcal Vaccination/Date Given: No Immunizations Up to Date: Yes <HORACIO CHIN - Last Filed: 02/26/21 18:06> <TOÑA HACKETT - Last Filed: 02/26/21 20:45> - History of Present Illness Time Seen by Provider: 02/26/21 15:20 Physician History: 20-year-old with a history of anxiety depression presented in the ER with starks icidal ideation since yesterday after she had arguments with her mom/aunt which made her mad and she tried to cut her arm with scissor. Does have superficial garcia on the left forearm. Reports having suicidal ideation without any specific plan. Patient reports having suicidal ideations off and on but lately getting worse and she is worried about as her father is a schizophrenic and she might be going in that direction as well. Denies any homicidal ideations. Denies any alcohol or drug use. (HORACIO CHIN) Allergies/Adverse Reactions: amoxicillin Allergy (Verified 02/26/21 14:34) Hives cefaclor [From Ceclor] Allergy (Verified 02/26/21 14:34) Hives cefazolin Allergy (Verified 02/26/21 14:34) Hives paroxetine [From Paxil] Allergy (Verified 02/26/21 14:34) hallucinations Home Medications: Albuterol Sulfate [Ventolin Hfa] 8 gm IH UD PRN 07/23/16 [History] Montelukast Sodium [Singulair] 10 mg PO DAILY 07/23/16 [History] Diazepam [Valium] 2 mg PO DAILY PRN 05/26/17 [History] Sertraline HCl [Zoloft] 100 mg PO DAILY 06/09/18 [History] lisinopriL [Zestril] 5 mg PO DAILY 06/09/18 [History] [place]-3 Fatty Acids/Fish Oil [Fish Oil 1,000 mg Capsule] 2,000 mg PO BID 06/15/18 [History] norgestimate-ethinyl estradioL [Tri-Sprintec] 1 each PO DAILY 07/24/19 [History] Pantoprazole 20 mg [Protonix 20MG Tablet] 20 mg PO DAILY 02/26/21 [History] Travel Risk - International Travel Have you traveled outside of the country in past 3 weeks: No - Coronavirus Screening Are you exhibiting any of the following symptoms?: No Close contact with a COVID-19 positive Pt in past 14-21 Days: No - Vaccine Status Have you recieved a Covid-19 vaccination: Yes 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: [employer] - Vaccination Dates Date of 2cond Vaccination (if applicable): MAY 2020 <HORACIO CHIN - Last Filed: 02/26/21 18:06> - Past Medical History Pertinent Past Medical History: Yes Neurological History: No Pertinent History ENT History: No Pertinent History Cardiac History: No Pertinent History Respiratory History: Asthma Endocrine Medical History: Other Musculoskeletal History: No Pertinent History GI Medical History: Gallbladder Disease History: Renal Disease Psycho-Social History: Anxiety, Depression Female Reproductive Disorders: No Pertinent History Other Medical History: IGA Nephropathy stage 1 - Past Surgical History Past Surgical History: Yes Neuro Surgical History: No Pertinent History Cardiac: No Pertinent History Respiratory: No Pertinent History Gastrointestinal: Cholecystectomy Genitourinary: Other Musculoskeletal: No Pertinent History Female Surgical History: No Pertinent History Other Surgical History: Kidney Biopsy, Bladder scope - Social History Smoking Status: Never smoker Exposure to second hand smoke: No Drug Use: none Patient Lives Alone: No Significant Family History: no pertinent family hx - Female History Hx Last Menstrual Period: 02/12/21 Hx Now: No <HORACIO CHIN - Last Filed: 02/26/21 18:06> - Review of Systems Constitutional: No Symptoms Eyes: No Symptoms Ears, Nose, & Throat: No Symptoms Respiratory: No Symptoms Cardiac: No Symptoms Abdominal/Gastrointestinal: No Symptoms Genitourinary Symptoms: No Symptoms Musculoskeletal: No Symptoms Skin: Skin Lesions Neurological: No Symptoms Psychological: Anxiety, Depression, Suicidal Ideations Endocrine: No Symptoms Hematologic/Lymphatic: No Symptoms Immunological/Allergic: No Symptoms <HORACIO CHIN - Last Filed: 02/26/21 18:06> - Physical Exam General Appearance: no apparent distress, alert Eyes, Ears, Nose, Throat Exam: normal ENT inspection, TMs normal Neck Exam: normal inspection, non-tender, supple, full range of motion Respiratory Exam: normal breath sounds, lungs clear Cardiovascular Exam: regular rate/rhythm, normal heart sounds Gastrointestinal/Abdominal Exam: soft, normal bowel sounds, No tenderness Extremities Exam: normal inspection, normal range of motion Current Suicidality: denies suicide plan Neurological Exam: alert, normal mood/affect, calm, sample selector II-XII nml as tested, oriented x 3 Appearance: appropriate appearance, appropriate insight, neat, no memory impairment Behavior/Eye Contact/Speech: alert & cooperative, cooperative, good eye contact, normal speech Thoughts/Hallucinations: normal thought pattern, no apparent hallucination Skin Exam: normal color SpO2 Interpretation: normal SpO2: 97 O2 Delivery: Room Air <HORACIO CHIN - Last Filed: 02/26/21 18:06> - Nursing Vital Signs Nursing Vital Signs: Initial Vital Signs Temperature 97.6 F 02/26/21 14:29 Pulse Rate 108 H 02/26/21 14:29 Respiratory Rate 18 02/26/21 14:29 Blood Pressure 126/97 02/26/21 14:29 O2 Sat by Pulse Oximetry 97 02/26/21 14:29 Pain Scale Pain Intensity 0 Ordered Tests: Active Orders 24 hr Category Date Time Status EKG-ER Only STAT Care 02/26/21 14:46 Active Psychiatric Consult STAT Cons 02/26/21 14:46 Active CBC W DIFF Stat Lab 02/26/21 15:04 Completed CMP Stat Lab 02/26/21 15:04 Completed CULTURE,URINE Stat Lab 02/26/21 14:49 Received UA W/RFX UR CULTURE Stat Lab 02/26/21 14:49 Completed Urine Triage Profile Stat Lab 02/26/21 15:04 Completed Medication Summary Discontinued Medications Generic Name Dose Route Start Last Admin Trade Name Haroon PRN Reason Stop Dose Admin Acetaminophen 650 mg 02/26/21 18:24 02/26/21 18:25 Acetaminophen 325 Mg Tablet PO 02/26/21 18:25 650 mg STAT STA Administration Acetaminophen Confirm 02/26/21 18:24 Acetaminophen 325 Mg Tablet Administered 02/26/21 18:25 Dose 650 mg .ROUTE [facility] Lab/Rad Data: Laboratory Result Diagrams 02/26/21 15:04 02/26/21 15:04 Laboratory Results 02/26/21 02/26/21 02/26/21 Range/Units 15:26 15:04 15:04 WBC (4.0-10.5) K/mm3 RBC (4.1-5.4) M/mm3 Hgb (12.0-16.0) gm/dl Hct (35-47) % MCV (78-100) fl MCH (26-32) pg MCHC (32-36) g/dl RDW (11.5-14.0) % Plt Count (150-450) K/mm3 MPV (7.5-11.0) fl Gran % (36.0-66.0) % Eos # (Auto) (0-0.5) Absolute Lymphs (auto) (1.0-4.6) Absolute Monos (auto) (0.0-1.3) Lymphocytes % (24.0-44.0) % Monocytes % (0.0-12.0) % Eosinophils % (0.00-5.0) % Basophils % (0.0-0.4) % Absolute Granulocytes (1.4-6.9) Basophils # (0-0.4) Sodium 135 L (137-145) mmol/L Potassium 3.6 (3.5-5.1) mmol/L Chloride 100 (98-107) mmol/L Carbon Dioxide 24 (22-30) mmol/L Anion Gap 14.3 (5-15) MEQ/L BUN 12 (7-17) mg/dL Creatinine 0.57 (0.52-1.04) mg/dL Estimated GFR > 60.0 ML/MIN Glucose 84 (74-106) mg/dL Calcium 9.4 (8.4-10.2) mg/dL Total Bilirubin 0.60 (0.2-1.3) mg/dL AST 21 (14-36) U/L ALT 21 (0-35) U/L Alkaline Phosphatase 83 (38-126) U/L Serum Total Protein 7.4 (6.3-8.2) g/dL Albumin 4.0 (3.5-5.0) g/dL Urine Color (YELLOW) Urine Appearance (CLEAR) Urine pH (5-6) Ur Specific [place] (1.005-1.025) Urine Protein (Negative) Urine Ketones (NEGATIVE) Urine Blood (0-5) Kan/ul Urine Nitrite (NEGATIVE) Urine Bilirubin (NEGATIVE) Urine Urobilinogen (0-1) mg/dL Ur Leukocyte Esterase (NEGATIVE) Urine WBC (Auto) (0-5) /HPF Urine RBC (Auto) (0-2) /HPF U Epithel Cells (Auto) (FEW) /HPF Urine Bacteria (Auto) (NEGATIVE) /HPF Urine Mucus (Auto) (NEGATIVE) /HPF Urine Culture Reflexed (NO) Urine Glucose (NEGATIVE) mg/dL Urine Opiates Level NEGATIVE (NEGATIVE) Ur Methadone NEGATIVE (NEGATIVE) Urine Barbiturates NEGATIVE (NEGATIVE) Ur Phencyclidine (PCP) NEGATIVE (NEGATIVE) Urine Amphetamine NEGATIVE (NEGATIVE) U Benzodiazepine Level NEGATIVE (NEGATIVE) Urine Cocaine NEGATIVE (NEGATIVE) Urine Marijuana (THC) NEGATIVE (NEGATIVE) SARS-CoV-2 Ag (Rapid) NEGATIVE (NEGATIVE) 02/26/21 02/26/21 Range/Units 15:04 14:49 WBC 11.7 H (4.0-10.5) K/mm3 RBC 5.06 (4.1-5.4) M/mm3 Hgb 14.0 (12.0-16.0) gm/dl Hct 42.8 (35-47) % MCV 84.6 (78-100) fl MCH 27.7 (26-32) pg MCHC 32.7 (32-36) g/dl RDW 14.4 H (11.5-14.0) % Plt Count 388 (150-450) K/mm3 MPV 8.8 (7.5-11.0) fl Gran % 65.1 (36.0-66.0) % Eos # (Auto) 0.41 (0-0.5) Absolute Lymphs (auto) 2.61 (1.0-4.6) Absolute Monos (auto) 0.99 (0.0-1.3) Lymphocytes % 22.3 L (24.0-44.0) % Monocytes % 8.5 (0.0-12.0) % Eosinophils % 3.5 (0.00-5.0) % Basophils % 0.6 (0.0-0.4) % Absolute Granulocytes 7.60 H (1.4-6.9) Basophils # 0.07 (0-0.4) Sodium (137-145) mmol/L Potassium (3.5-5.1) mmol/L Chloride (98-107) mmol/L Carbon Dioxide (22-30) mmol/L Anion Gap (5-15) MEQ/L BUN (7-17) mg/dL Creatinine (0.52-1.04) mg/dL Estimated GFR ML/MIN Glucose (74-106) mg/dL Calcium (8.4-10.2) mg/dL Total Bilirubin (0.2-1.3) mg/dL AST (14-36) U/L ALT (0-35) U/L Alkaline Phosphatase (38-126) U/L Serum Total Protein (6.3-8.2) g/dL Albumin (3.5-5.0) g/dL Urine Color YELLOW (YELLOW) Urine Appearance SLIGHTLY CLOUDY (CLEAR) Urine pH 5.0 (5-6) Ur Specific [place] 1.020 (1.005-1.025) Urine Protein 100 (Negative) Urine Ketones NEGATIVE (NEGATIVE) Urine Blood LARGE (0-5) Kan/ul Urine Nitrite NEGATIVE (NEGATIVE) Urine Bilirubin NEGATIVE (NEGATIVE) Urine Urobilinogen NEGATIVE (0-1) mg/dL Ur Leukocyte Esterase NEGATIVE (NEGATIVE) Urine WBC (Auto) 3-5 (0-5) /HPF Urine RBC (Auto) 0-2 (0-2) /HPF U Epithel Cells (Auto) NONE (FEW) /HPF Urine Bacteria (Auto) RARE (NEGATIVE) /HPF Urine Mucus (Auto) SLIGHT (NEGATIVE) /HPF Urine Culture Reflexed YES (NO) Urine Glucose NEGATIVE (NEGATIVE) mg/dL Urine Opiates Level (NEGATIVE) Ur Methadone (NEGATIVE) Urine Barbiturates (NEGATIVE) Ur Phencyclidine (PCP) (NEGATIVE) Urine Amphetamine (NEGATIVE) U Benzodiazepine Level (NEGATIVE) Urine Cocaine (NEGATIVE) Urine Marijuana (THC) (NEGATIVE) SARS-CoV-2 Ag (Rapid) (NEGATIVE) - Progress Progress: improved, re-examined Counseled pt/family regarding: lab results, diagnosis, need for follow-up <TOÑA HACKETT - Last Filed: 02/26/21 20:45> - Progress Progress Note: 02/26/21 20:43 Medical decision making: This patient underwent telepsychiatry evaluation by Xavi Reyes LCSW. The patient was staffed with psychiatrist Dr. Rodas. The final diagnosis given this patient has generalized anxiety disorder. An outpatient safety plan has been arranged with the patient and her family. Patient does not live alone. Family will also be involved with the safety plan. Patient may be discharged to home. (TOÑA HACKETT) <HORACIO CHIN - Last Filed: 02/26/21 18:06> - Departure Departure Disposition: Home Critical Care Time: No <TOÑA HACKETT - Last Filed: 02/26/21 20:45> - Departure Clinical Impression: Generalized anxiety disorder Condition: Stable Referrals: SARATH MATHIS [Primary Care Provider] - Follow up/PCP as directed Additional Instructions: Follow the outpatient safety plan as instructed. Follow-up with outpatient behavioral health appointment as instructed.
[2021-02-26] MEDS ORDERED: TYLENOL 325 MG PO STA (18:24)
[2021-02-26] MEDS ORDERED: TYLENOL 325 MG ONE (18:24)
[2021-02-26 20:39] VITALS: BP 99/74; PULSE 100
== END 2021-02-26 20:58 | disposition home or self-care (01) ==
LOC: ED 14:18
DX: F41.1 Generalized anxiety disorder (principal); R45.851 Suicidal ideations
CPT/HCPCS: 36415; 80053; 80307; 81001; 85025; 87086; 90791; 93005; 99000; 99284; Q3014; A9270-GY

== ENCOUNTER 2021-07-11 18:23 | Emergency (ER) | payer OTHER ==
[2021-07-11] MEDS ORDERED: DELTASONE 20 MG ONE (18:34)
[2021-07-11] MEDS: DELTASONE 20 MG PO ONE (18:35)
--- NOTE | 2021-07-11 18:37 | ERPHSYRPT ---
- History of Present Illness Time Seen by Provider: 07/11/21 18:30 Source: patient Exam Limitations: no limitations Patient Subjective Stated Complaint: Cough/congestion Triage Nursing Assessment: Patient ambulated back to ED and transferred self to bed. Patient A+O X3. Patient's skin pink, warm and dry. Patient complains of cough, congestion and fever for the past 3 days. Patient denies pain or discomfort. Lungs clear a/p jacy. Physician History: Patient has had a cough, sinus congestion and fever over the last 3 days. Patient has a history of asthma and has tried her inhaler without any relief, tried TheraFlu without any relief with Tylenol has broken her fever. Last fever she had was approximate at noon on 07/11/2021 her temperature was at 100.4. Patient's mother had a sinus infection also but no specific diagnosis of COVID or influenza that she is aware being diagnosed Timing/Duration: day(s) (3) Cough Quality/Degree: moderate Possible Cause: occasional episodes Modifying Factors: Worsens With: albuterol inhaler Associated Symptoms: fever, cough, nasal congestion, nasal drainage, sinus infection, wheezing, No chills, No chest pain/soreness, No dizziness, No earache, No facial pain, No lightheadedness, No muscle aches, No shortness of breath, No sore throat Allergies/Adverse Reactions: amoxicillin Allergy (Verified 07/11/21 18:26) Hives cefaclor [From Ceclor] Allergy (Verified 07/11/21 18:26) Hives cefazolin Allergy (Verified 07/11/21 18:26) Hives paroxetine [From Paxil] Allergy (Verified 07/11/21 18:26) hallucinations Home Medications: Albuterol Sulfate [Ventolin Hfa] 8 gm IH UD PRN 07/23/16 [History] Montelukast Sodium [Singulair] 10 mg PO DAILY 07/23/16 [History] Diazepam [Valium] 2 mg PO DAILY PRN 05/26/17 [History] Sertraline HCl [Zoloft] 100 mg PO DAILY 06/09/18 [History] lisinopriL [Zestril] 5 mg PO DAILY 06/09/18 [History] [place]-3 Fatty Acids/Fish Oil [Fish Oil 1,000 mg Capsule] 2,000 mg PO BID 06/15/18 [History] norgestimate-ethinyl estradioL [Tri-Sprintec] 1 each PO DAILY 07/24/19 [History] Pantoprazole 20 mg [Protonix 20MG Tablet] 20 mg PO DAILY 02/26/21 [History] Hx Tetanus, Diphtheria Vaccination/Date Given: Yes Hx Influenza Vaccination/Date Given: Yes Hx Pneumococcal Vaccination/Date Given: No Immunizations Up to Date: Yes Travel Risk - International Travel Have you traveled outside of the country in past 3 weeks: No - Coronavirus Screening Are you exhibiting any of the following symptoms?: Yes Symptoms: Fever, Cough: New Onset Close contact with a COVID-19 positive Pt in past 14-21 Days: No - Vaccine Status Have you recieved a Covid-19 vaccination: Yes 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[employer] - Vaccination Dates Date of 2cond Vaccination (if applicable): MAY 2020 - Review of Systems Constitutional: Fever, No Chills, No Fatigue, No Malaise Eyes: No Symptoms, No Eye Pain, No Eye Redness Ears, Nose, & Throat: No Symptoms, Nose Congestion, No Ear Pain, No Ear Discharge, No Epistaxis, No Throat Pain Respiratory: Cough, Wheezing, No Dyspnea Cardiac: No Chest Pain, No Edema, No Syncope Abdominal/Gastrointestinal: No Abdominal Pain, No Nausea, No Vomiting, No Diarrhea Genitourinary Symptoms: No Dysuria, No Hematuria, No Flank Pain Musculoskeletal: No Back Pain, No Neck Pain Skin: No Pruritis, No Rash Neurological: No Dizziness, No Focal Weakness, No Sensory Changes Psychological: No Symptoms, No Anxiety Endocrine: No Symptoms, No Polydipsia Hematologic/Lymphatic: No Easy Bruising All Other Systems: Reviewed and Negative - Past Medical History Pertinent Past Medical History: Yes Neurological History: No Pertinent History ENT History: No Pertinent History Cardiac History: No Pertinent History Respiratory History: Asthma Endocrine Medical History: Other Musculoskeletal History: No Pertinent History GI Medical History: Gallbladder Disease History: Renal Disease Psycho-Social History: Anxiety, Depression Female Reproductive Disorders: No Pertinent History Other Medical History: IGA Nephropathy stage 1 - Past Surgical History Past Surgical History: Yes Neuro Surgical History: No Pertinent History Cardiac: No Pertinent History Respiratory: No Pertinent History Gastrointestinal: Cholecystectomy Genitourinary: Other Musculoskeletal: No Pertinent History Female Surgical History: No Pertinent History Other Surgical History: Kidney Biopsy, Bladder scope - Social History Smoking Status: Never smoker Exposure to second hand smoke: No Drug Use: none Patient Lives Alone: No Significant Family History: no pertinent family hx - Female History Hx Last Menstrual Period: 2 days ago Hx Now: No - Nursing Vital Signs Nursing Vital Signs: Initial Vital Signs Temperature 99.0 F 07/11/21 18:28 Pulse Rate 92 H 07/11/21 18:28 Respiratory Rate 18 07/11/21 18:28 Blood Pressure 119/75 07/11/21 18:28 O2 Sat by Pulse Oximetry 97 07/11/21 18:28 Pain Scale Pain Intensity 0 - Physical Exam General Appearance: no apparent distress, alert Eye Exam: PERRL/EOMI, eyes nml inspection Ears, Nose, Throat Exam: normal ENT inspection, TMs normal, pharynx normal, moist mucous membranes Neck Exam: normal inspection, non-tender, supple, full range of motion, No JVD, No lymphadenopathy Respiratory Exam: normal breath sounds, lungs clear, airway intact, wheezing, No respiratory distress, No accessory muscle use, No crackles/rales, No rhonchi, No stridor Cardiovascular Exam: regular rate/rhythm, normal heart sounds Gastrointestinal/Abdomen Exam: soft, No tenderness Back Exam: normal inspection, No CVA tenderness, No vertebral tenderness Extremity Exam: normal inspection, normal range of motion Neurologic Exam: alert, oriented x 3, cooperative, 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 as tested, normal mood/affect, sensation nml, No motor deficits Skin Exam: normal color, warm, dry, No rash Lymphatic Exam: No adenopathy SpO2 Interpretation: normal SpO2: 96 O2 Delivery: Room Air - Course Nursing assessment & vital signs reviewed: Yes - Radiology Exams Chest X-ray Interpretation: Interpreted by me, Reviewed by me, Negative, No Fracture, No Pneumonia, No Pneumothorax, Nml Heart Size, Nml Mediastinum, Nml Soft Tissues Ordered Tests: Active Orders 24 hr Category Date Time Status CHEST 2 VIEWS (PA AND LAT) Stat Exams 07/11/21 19:23 Taken Respiratory Therapy Assessment DAILY RT 07/11/21 18:43 Completed Medication Summary Discontinued Medications Generic Name Dose Route Start Last Admin Trade Name Freq PRN Reason Stop Dose Admin Albuterol/Ipratropium 3 ml 07/11/21 18:32 07/11/21 18:43 Ipratropium/Albuterol Sulfate 3 Ml Ampul.Neb IH 07/11/21 18:33 3 ml STAT ONE Administration Albuterol/Ipratropium Confirm 07/11/21 18:40 Ipratropium/Albuterol Sulfate 3 Ml Ampul.Neb Administered 07/11/21 18:41 Dose 3 ml IH .STK-MED ONE Prednisone 60 mg 07/11/21 18:32 07/11/21 18:35 Prednisone 20 Mg Tablet PO 07/11/21 18:33 60 mg STAT ONE Administration Prednisone Confirm 07/11/21 18:34 Prednisone 20 Mg Tablet Administered 07/11/21 18:35 Dose 60 mg .ROUTE .STK-MED ONE Lab/Rad Data: Laboratory Results 07/11/21 Range/Units 18:40 Influenza Type A Ag NEGATIVE (NEGATIVE) Influenza Type B Ag NEGATIVE (NEGATIVE) RSV (PCR) NEGATIVE (Negative) SARS-CoV-2 (PCR) NEGATIVE (NEGATIVE) - Progress Progress: improved, re-examined Air Movement: good Progress Note: 07/11/21 19:52 Patient had excellent air movement on inspiration and expiration with no signs of respiratory distress and had a response to the DuoNeb treatments. Patient be discharged home to follow-up with her primary care provider in 2 days check response to therapy as she can do duo nebs and prednisone at home as well as Atrovent nasal spray and pseudoephedrine as an outpatient as she does not require any inpatient monitoring or treatment at this time or any other evaluations, treatments or monitoring here in the emergency department Antibiotics given: No Counseled pt/family regarding: lab results, diagnosis, need for follow-up, rad results - Departure Departure Disposition: Extended Care Facility Clinical Impression: Acute exacerbation of mild persistent extrinsic asthma, Acute sinusitis, unspecified, Acute URI of multiple sites Condition: Good Critical Care Time: No Referrals: SARATH MATHIS [Primary Care Provider] - Follow up/PCP as directed Instructions: Cough, Adult (DC), Asthma, Adult (DC), Viral Upper Respiratory Infection, Adult (DC), Sinusitis, Adult (DC) Additional Instructions: Return to the nearest emergency department if he having new fever greater than 101, new productive cough, new chest pain, new shortness of breath, new overwhelming headache, any stiff neck, new skin rash, new vomiting, new abdominal pain or any other concerning signs or symptoms that were not present at today's emergency room visit for immediate reevaluation in the nearest emergency department Prescriptions: Albuterol/Ipratropium 3ml Neb* [DUONEB 0.5-3 MG/3 ml Neb] 3 ml NEBULIZE Q4H PRN PRN #1 PRN Reason: Wheezing/Chest Congestion Ipratropium [place] 2 sprays NS Q8H PRN PRN 3 Days #1 PRN Reason: congestion/runny nose Prednisone 20 mg [Deltasone 20 mg] 60 mg PO DAILY PRN #9 tablet PRN Reason: Sore Throat Relief Pseudoephedrine HCl [Sudafed 12 Hour] 120 mg PO BID #20 tablet
[2021-07-11] MEDS ORDERED: DUONEB 0.5-3 MG/3 ml Neb IH ONE (18:40)
[2021-07-11] MEDS: DUONEB 0.5-3 MG/3 ml Neb IH ONE (18:43)
[2021-07-11 19:38] LABS: INFLUENZA A NEGATIVE (NEGATIVE); INFLUENZA B NEGATIVE (NEGATIVE); RESPIRATORY SYNCTIAL VIRUS NEGATIVE (Negative); SARS-CoV-2 Xpert Express NEGATIVE (NEGATIVE)
[2021-07-11 20:14] VITALS: BP 101/66; PULSE 89; O2SAT 97
--- NOTE | 2021-07-12 08:54 | XRAY ---
Indication: Fever, cough, and sinus congestion. Comparison: May 29, 2020. PA/lateral chest again demonstrates normal heart and lungs. Bony thorax intact. No new/acute findings.
== END 2021-07-11 20:26 | disposition home or self-care (01) ==
LOC: ED 18:23
DX: J45.31 Mild persistent asthma with (acute) exacerbation (principal); J01.90 Acute sinusitis, unspecified; J06.9 Acute upper respiratory infection, unspecified; R05.1 Acute cough; R09.81 Nasal congestion; R50.9 Fever, unspecified; Z79.52 Long term (current) use of systemic steroids; Z79.899 Other long term (current) drug therapy
CPT/HCPCS: 0241U; 71046; 94640; 99284; A9270-GY

== ENCOUNTER 2021-10-24 17:10 | Emergency (ER) | payer OTHER ==
--- NOTE | 2021-10-24 17:12 | ERPHSYRPT ---
- History of Present Illness Time Seen by Provider: 10/24/21 17:12 Source: patient Exam Limitations: no limitations Physician History: This is a 20-year-old overweight white female patient of Dr. Amarjit Goodson who presents to the emergency room with complaints of weakness and dizziness since this morning. Patient states that she has had similar symptoms in the past and her blood sugar was low. However, today, her blood sugar is in the normal range. Patient denies head injury. There has been new medication change. Patient has been on Zoloft in the past and approxi-1 week ago she was changed from Zoloft to Celexa. She took Celexa for approximately 3 days and she did not tolerate this well. She was then taken off of it after the 3 days and restarted Zoloft at 50 mg daily for 2 days. Patient just completed her last menstrual period. Patient has a history of renal disease, anxiety and depression issues, hypertension, asthma and gastroesophageal reflux disease. Timing/Duration: today Severity: mild Associated Symptoms: weakness, No shortness of breath, No chest pain Allergies/Adverse Reactions: amoxicillin Allergy (Verified 10/24/21 17:32) Hives cefaclor [From Ceclor] Allergy (Verified 10/24/21 17:32) Hives cefazolin Allergy (Verified 10/24/21 17:32) Hives paroxetine [From Paxil] Allergy (Verified 10/24/21 17:32) hallucinations Home Medications: Montelukast Sodium [Singulair] 10 mg PO DAILY 07/23/16 [History] Diazepam [Valium] 2 mg PO DAILY PRN 05/26/17 [History] Sertraline HCl [Zoloft] 50 mg PO DAILY 06/09/18 [History] lisinopriL [Zestril] 5 mg PO DAILY 06/09/18 [History] [place]-3 Fatty Acids/Fish Oil [Fish Oil 1,000 mg Capsule] 2,000 mg PO BID 06/15/18 [History] norgestimate-ethinyl estradioL [Tri-Sprintec] 1 each PO DAILY 07/24/19 [History] Pantoprazole 20 mg [Protonix 20MG Tablet] 20 mg PO DAILY 02/26/21 [History] Hx Tetanus, Diphtheria Vaccination/Date Given: Yes Hx Influenza Vaccination/Date Given: Yes Hx Pneumococcal Vaccination/Date Given: No Travel Risk - International Travel Have you traveled outside of the country in past 3 weeks: No - Coronavirus Screening Are you exhibiting any of the following symptoms?: No Close contact with a COVID-19 positive Pt in past 14-21 Days: No - Vaccine Status Have you recieved a Covid-19 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: 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[employer] - Vaccination Dates Date of 2cond Vaccination (if applicable): MAY 2020 - Review of Systems Constitutional: Weakness Eyes: No Symptoms Ears, Nose, & Throat: No Symptoms Respiratory: No Symptoms Cardiac: No Symptoms Abdominal/Gastrointestinal: No Symptoms Genitourinary Symptoms: No Symptoms Musculoskeletal: No Symptoms Skin: No Symptoms Neurological: No Symptoms Psychological: No Symptoms Endocrine: No Symptoms Hematologic/Lymphatic: No Symptoms Immunological/Allergic: No Symptoms All Other Systems: Reviewed and Negative - Past Medical History Pertinent Past Medical History: Yes Neurological History: No Pertinent History ENT History: No Pertinent History Cardiac History: No Pertinent History Respiratory History: Asthma Endocrine Medical History: Other Musculoskeletal History: No Pertinent History GI Medical History: Gallbladder Disease History: Renal Disease Psycho-Social History: Anxiety, Depression Female Reproductive Disorders: No Pertinent History Other Medical History: IGA Nephropathy stage 1 - Past Surgical History Past Surgical History: Yes Neuro Surgical History: No Pertinent History Cardiac: No Pertinent History Respiratory: No Pertinent History Gastrointestinal: Cholecystectomy Genitourinary: Other Musculoskeletal: No Pertinent History Female Surgical History: No Pertinent History Other Surgical History: Kidney Biopsy, Bladder scope - Social History Smoking Status: Never smoker Exposure to second hand smoke: No Drug Use: none Patient Lives Alone: No Significant Family History: no pertinent family hx - Nursing Vital Signs Nursing Vital Signs: Initial Vital Signs Temperature 97.9 F 10/24/21 17:21 Pulse Rate 74 10/24/21 17:21 Blood Pressure 122/76 10/24/21 17:21 O2 Sat by Pulse Oximetry 98 10/24/21 17:21 Pain Scale Pain Intensity 0 - Physical Exam General Appearance: no apparent distress, alert, anxiety Eye Exam: PERRL/EOMI, eyes nml inspection Ears, Nose, Throat Exam: normal ENT inspection, moist mucous membranes Neck Exam: normal inspection, non-tender, supple, full range of motion Respiratory Exam: normal breath sounds, lungs clear, airway intact, No chest tenderness, No respiratory distress Cardiovascular Exam: regular rate/rhythm, normal heart sounds, normal peripheral pulses Gastrointestinal/Abdomen Exam: soft, normal bowel sounds, No tenderness Pelvic Exam: not done Rectal Exam: not done Back Exam: normal inspection, normal range of motion, No CVA tenderness, No ve rtebral tenderness Extremity Exam: normal inspection, normal range of motion, pelvis stable Neurologic Exam: alert, oriented x 3, cooperative, 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 as tested, normal mood/affect, nml cerebellar function, nml station & gait, sensation nml Skin Exam: normal color, warm, dry Lymphatic Exam: No adenopathy SpO2 Interpretation: normal O2 Delivery: Room Air - Course Nursing assessment & vital signs reviewed: Yes Ordered Tests: Active Orders 24 hr Category Date Time Status EKG-ER Only STAT Care 10/24/21 17:37 Active IV Insertion STAT Care 10/24/21 17:37 Active CBC W DIFF Stat Lab 10/24/21 17:37 Completed CMP Stat Lab 10/24/21 17:50 Completed HCG,QUALITATIVE URINE Stat Lab 10/24/21 17:58 Completed MAGNESIUM Stat Lab 10/24/21 17:50 Completed POCT GLUCOSE Stat Lab 10/24/21 17:29 Completed TROPONIN Q4H Lab 10/24/21 17:50 Completed TROPONIN Q4H Lab 10/24/21 21:45 Ordered TROPONIN Q4H Lab 10/25/21 01:45 Ordered UA W/RFX CULTURE Stat Lab 10/24/21 Completed Medication Summary Discontinued Medications Generic Name Dose Route Start Last Admin Trade Name Arielq PRN Reason Stop Dose Admin Sodium Chloride 1,000 mls @ 999 mls/hr 10/24/21 17:37 10/24/21 19:32 Sodium Chloride 0.9% 1000 Ml IV 10/24/21 18:37 Infused .Q1H1M STA Infusion Sodium Chloride Confirm 10/24/21 17:45 Sodium Chloride 0.9% 1000 Ml Administered 10/24/21 17:46 Dose 1,000 mls @ ud .ROUTE .[facility] ONE Lab/Rad Data: Laboratory Result Diagrams 10/24/21 17:37 10/24/21 17:50 Laboratory Results 10/24/21 10/24/21 10/24/21 Range/Units Unknown 18:00 17:58 WBC (4.0-10.5) x10^3/uL RBC (4.1-5.4) x10^6/uL Hgb (12.0-16.0) g/dL Hct (35-47) % MCV (78-100) fL MCH (26-32) pg MCHC (32-36) g/dL RDW (11.5-14.0) % Plt Count (150-450) x10^3/uL MPV (7.5-11.0) fL Gran % (36.0-66.0) % Immature Gran % (Auto) (0.00-0.4) % Nucleat RBC Rel Count (0.00-0.1) % Eos # (Auto) (0-0.5) x10^3/uL Immature Gran # (Auto) (0.00-0.03) x10^3u/L Absolute Lymphs (auto) (1.0-4.6) x10^3/uL Absolute Monos (auto) (0.0-1.3) x10^3/uL Absolute Nucleated RBC (0.00-0.01) x10^3u/L Lymphocytes % (24.0-44.0) % Monocytes % (0.0-12.0) % Eosinophils % (0.00-5.0) % Basophils % (0.0-0.4) % Absolute Granulocytes (1.4-6.9) x10^3/uL Basophils # (0-0.4) x10^3/uL Sodium (137-145) mmol/L Potassium (3.5-5.1) mmol/L Chloride (98-107) mmol/L Carbon Dioxide (22-30) mmol/L Anion Gap (5-15) MEQ/L BUN (7-17) mg/dL Creatinine (0.52-1.04) mg/dL Estimated GFR ML/MIN Glucose (74-106) mg/dL POC Glucometer (74 to 106) mg/dL Calcium (8.4-10.2) mg/dL Magnesium (1.6-2.3) mg/dL Total Bilirubin (0.2-1.3) mg/dL AST (14-36) U/L ALT (0-35) U/L Alkaline Phosphatase (38-126) U/L Troponin I (0.000-0.034) ng/mL Serum Total Protein (6.3-8.2) g/dL Albumin (3.5-5.0) g/dL Urinalys Dipstick Clnc MAIN LAB Urine Color YELLOW (YELLOW) Urine Appearance CLEAR (CLEAR) Urine pH 5.5 (5-6) Ur Specific [place] 1.025 (1.005-1.025) POC Urine Protein Conf NEGATIVE (Negative) Urine Ketones NEGATIVE (NEGATIVE) Urine Nitrite NEGATIVE (NEGATIVE) Urine Bilirubin NEGATIVE (NEGATIVE) Urine Urobilinogen 0.2 (0-1) mg/dL Urine Leukocytes NEGATIVE (NEGATIVE) Urine WBC (Auto) NONE (0-5) /HPF Urine RBC (Auto) 16-25 (0-2) /HPF U Epithel Cells (Auto) NONE (FEW) /HPF Urine Bacteria (Auto) RARE (NEGATIVE) /HPF Urine RBC LARGE (0-5) Kan/ul Ur Culture Indicated? NO Urine Glucose NEGATIVE (NEGATIVE) mg/dL Urine HCG, Qual NEGATIVE (Negative) Influenza Type A Ag NEGATIVE (NEGATIVE) Influenza Type B Ag NEGATIVE (NEGATIVE) RSV (PCR) NEGATIVE (Negative) SARS-CoV-2 (PCR) NEGATIVE (NEGATIVE) 10/24/21 10/24/21 10/24/21 Range/Units 17:50 17:50 17:37 WBC 9.7 (4.0-10.5) x10^3/uL RBC 5.03 (4.1-5.4) x10^6/uL Hgb 13.9 (12.0-16.0) g/dL Hct 42.5 (35-47) % MCV 84.5 (78-100) fL MCH 27.6 (26-32) pg MCHC 32.7 (32-36) g/dL RDW 13.8 (11.5-14.0) % Plt Count 324 (150-450) x10^3/uL MPV 8.5 (7.5-11.0) fL Gran % 55.1 (36.0-66.0) % Immature Gran % (Auto) 0.3 (0.00-0.4) % Nucleat RBC Rel Count 0.0 (0.00-0.1) % Eos # (Auto) 0.50 (0-0.5) x10^3/uL Immature Gran # (Auto) 0.03 (0.00-0.03) x10^3u/L Absolute Lymphs (auto) 2.86 (1.0-4.6) x10^3/uL Absolute Monos (auto) 0.89 (0.0-1.3) x10^3/uL Absolute Nucleated RBC 0.00 (0.00-0.01) x10^3u/L Lymphocytes % 29.4 (24.0-44.0) % Monocytes % 9.2 (0.0-12.0) % Eosinophils % 5.1 H (0.00-5.0) % Basophils % 0.9 (0.0-0.4) % Absolute Granulocytes 5.35 (1.4-6.9) x10^3/uL Basophils # 0.09 (0-0.4) x10^3/uL Sodium 137 (137-145) mmol/L Potassium 3.8 (3.5-5.1) mmol/L Chloride 97 L (98-107) mmol/L Carbon Dioxide 31 H (22-30) mmol/L Anion Gap 12.1 (5-15) MEQ/L BUN 12 (7-17) mg/dL Creatinine 0.66 (0.52-1.04) mg/dL Estimated GFR > 60.0 ML/MIN Glucose 94 (74-106) mg/dL POC Glucometer (74 to 106) mg/dL Calcium 9.5 (8.4-10.2) mg/dL Magnesium 1.8 (1.6-2.3) mg/dL Total Bilirubin 0.30 (0.2-1.3) mg/dL AST 25 (14-36) U/L ALT 17 (0-35) U/L Alkaline Phosphatase 95 (38-126) U/L Troponin I < 0.012 (0.000-0.034) ng/mL Serum Total Protein 8.1 (6.3-8.2) g/dL Albumin 4.3 (3.5-5.0) g/dL Urinalys Dipstick Clnc Urine Color (YELLOW) Urine Appearance (CLEAR) Urine pH (5-6) Ur Specific [place] (1.005-1.025) POC Urine Protein Conf (Negative) Urine Ketones (NEGATIVE) Urine Nitrite (NEGATIVE) Urine Bilirubin (NEGATIVE) Urine Urobilinogen (0-1) mg/dL Urine Leukocytes (NEGATIVE) Urine WBC (Auto) (0-5) /HPF Urine RBC (Auto) (0-2) /HPF U Epithel Cells (Auto) (FEW) /HPF Urine Bacteria (Auto) (NEGATIVE) /HPF Urine RBC (0-5) Kan/ul Ur Culture Indicated? Urine Glucose (NEGATIVE) mg/dL Urine HCG, Qual (Negative) Influenza Type A Ag (NEGATIVE) Influenza Type B Ag (NEGATIVE) RSV (PCR) (Negative) SARS-CoV-2 (PCR) (NEGATIVE) 10/24/21 Range/Units 17:29 WBC (4.0-10.5) x10^3/uL RBC (4.1-5.4) x10^6/uL Hgb (12.0-16.0) g/dL Hct (35-47) % MCV (78-100) fL MCH (26-32) pg MCHC (32-36) g/dL RDW (11.5-14.0) % Plt Count (150-450) x10^3/uL MPV (7.5-11.0) fL Gran % (36.0-66.0) % Immature Gran % (Auto) (0.00-0.4) % Nucleat RBC Rel Count (0.00-0.1) % Eos # (Auto) (0-0.5) x10^3/uL Immature Gran # (Auto) (0.00-0.03) x10^3u/L Absolute Lymphs (auto) (1.0-4.6) x10^3/uL Absolute Monos (auto) (0.0-1.3) x10^3/uL Absolute Nucleated RBC (0.00-0.01) x10^3u/L Lymphocytes % (24.0-44.0) % Monocytes % (0.0-12.0) % Eosinophils % (0.00-5.0) % Basophils % (0.0-0.4) % Absolute Granulocytes (1.4-6.9) x10^3/uL Basophils # (0-0.4) x10^3/uL Sodium (137-145) mmol/L Potassium (3.5-5.1) mmol/L Chloride (98-107) mmol/L Carbon Dioxide (22-30) mmol/L Anion Gap (5-15) MEQ/L BUN (7-17) mg/dL Creatinine (0.52-1.04) mg/dL Estimated GFR ML/MIN Glucose (74-106) mg/dL POC Glucometer 99 (74 to 106) mg/dL Calcium (8.4-10.2) mg/dL Magnesium (1.6-2.3) mg/dL Total Bilirubin (0.2-1.3) mg/dL AST (14-36) U/L ALT (0-35) U/L Alkaline Phosphatase (38-126) U/L Troponin I (0.000-0.034) ng/mL Serum Total Protein (6.3-8.2) g/dL Albumin (3.5-5.0) g/dL Urinalys Dipstick Clnc Urine Color (YELLOW) Urine Appearance (CLEAR) Urine pH (5-6) Ur Specific [place] (1.005-1.025) POC Urine Protein Conf (Negative) Urine Ketones (NEGATIVE) Urine Nitrite (NEGATIVE) Urine Bilirubin (NEGATIVE) Urine Urobilinogen (0-1) mg/dL Urine Leukocytes (NEGATIVE) Urine WBC (Auto) (0-5) /HPF Urine RBC (Auto) (0-2) /HPF U Epithel Cells (Auto) (FEW) /HPF Urine Bacteria (Auto) (NEGATIVE) /HPF Urine RBC (0-5) Kan/ul Ur Culture Indicated? Urine Glucose (NEGATIVE) mg/dL Urine HCG, Qual (Negative) Influenza Type A Ag (NEGATIVE) Influenza Type B Ag (NEGATIVE) RSV (PCR) (Negative) SARS-CoV-2 (PCR) (NEGATIVE) - Progress Progress: improved Progress Note: 10/24/21 18:59 Medical decision making: This patient may be having symptoms secondary to her medication changes that have occurred within the last week. Patient is to follow-up with her primary care physician tomorrow. She is to call the office by phone to make arranges for follow-up appointment. Counseled pt/family regarding: lab results, diagnosis, need for follow-up - Departure Departure Disposition: Home Clinical Impression: Dizziness, Medication reaction Condition: Stable Critical Care Time: No Referrals: SARATH MATHIS [Primary Care Provider] - Follow up/PCP as directed Additional Instructions: Drink plenty of fluids. Take your medication as prescribed tonight. However, hold all your medications in the morning until you get further instructions by your primary prescribing physician tomorrow morning. Call your primary prescribing physician tomorrow morning
[2021-10-24 17:32] VITALS: O2SAT 98
[2021-10-24] MEDS ORDERED: Sodium Chloride 0.9% 1000 ML 1,000 ML ONE (17:45)
[2021-10-24] MEDS: Sodium Chloride 0.9% 1000 ML 1,000 ML IV STA (17:48)
[2021-10-24 17:54] LABS: Absolute Neutrophil Ct (ANC) 5.35 x10^3/uL (1.4-6.9); Basophil (Absolute #) 0.09 x10^3/uL (0-0.4); Eosinophil % 5.1 % (0.00-5.0); Hematocrit 42.5 % (35-47); Hemoglobin 13.9 g/dL (12.0-16.0); Lymphocyte (Absolute #) 2.86 x10^3/uL (1.0-4.6); Lymphocytes % 29.4 % (24.0-44.0); Mean Cell Volume 84.5 fL (78-100); Mean Corpuscular Hemoglobin 27.6 pg (26-32); Mean Corpuscular Hgb Concent. 32.7 g/dL (32-36); Mean Platelet Volume 8.5 fL (7.5-11.0); Monocyte (Absolute #) 0.89 x10^3/uL (0.0-1.3); Monocytes % 9.2 % (0.0-12.0); Neutrophil % 55.1 % (36.0-66.0); Platelet Count 324 x10^3/uL (150-450); Red Blood Count 5.03 x10^6/uL (4.1-5.4); Red Cell Distribution Width 13.8 % (11.5-14.0); White Blood Count 9.7 x10^3/uL (4.0-10.5)
[2021-10-24 17:58] LABS: Bacteria RARE /HPF (NEGATIVE)
[2021-10-24 17:59] LABS: Appearance CLEAR (CLEAR); Bilirubin NEGATIVE (NEGATIVE); Glucose NEGATIVE (NEGATIVE); Ketones NEGATIVE (NEGATIVE)
[2021-10-24 18:00] LABS: Dipstick done @ ? MAIN LAB; Nitrite NEGATIVE (NEGATIVE); Ph 5.5 (5-6); Protein,Urine Dip NEGATIVE (Negative); RBC LARGE Ery/ul (0-5); Specific Gravity 1.025 (1.005-1.025); Urine Cultured Indicated? NO; Urobilinogen 0.2 mg/dL (0-1)
[2021-10-24 18:15] LABS: ALBUMIN 4.3 g/dL (3.5-5.0); ALKALINE PHOSPHATASE 95 U/L (38-126); ANION GAP 12.1 MEQ/L (5-15); BLOOD UREA NITROGEN 12 mg/dL (7-17); CHLORIDE 97 mmol/L (98-107); Calcium 9.5 mg/dL (8.4-10.2); Carbon Dioxide 31 mmol/L (22-30); Creatinine 1 0.66 mg/dL (0.52-1.04); EST GLOMERULAR FILTRATION RATE > 60.0 ML/MIN; Glucose 94 mg/dL (74-106); MAGNESIUM 1.8 mg/dL (1.6-2.3); Potassium 3.8 mmol/L (3.5-5.1); SGOT/AST 25 U/L (14-36); SGPT/ALT 17 U/L (0-35); SODIUM 137 mmol/L (137-145); Total Protein 8.1 g/dL (6.3-8.2)
[2021-10-24 19:26] LABS: INFLUENZA A NEGATIVE (NEGATIVE); INFLUENZA B NEGATIVE (NEGATIVE); RESPIRATORY SYNCTIAL VIRUS NEGATIVE (Negative); SARS-CoV-2 Xpert Express NEGATIVE (NEGATIVE)
[2021-10-24 19:34] VITALS: PULSE 74
[2021-10-24 19:39] VITALS: BP 115/77
== END 2021-10-24 19:39 | disposition home or self-care (01) ==
LOC: ED 17:10
DX: R42 Dizziness and giddiness (principal); T43.225A Adverse effect of selective serotonin reuptake inhibitors, initial encounter; R53.1 Weakness; N02.8 Recurrent and persistent hematuria with other morphologic changes; I10 Essential (primary) hypertension; Z79.899 Other long term (current) drug therapy
CPT/HCPCS: 0241U; 36000; 36415; 80053; 81015; 81025; 82947; 83735; 84484; 85025; 93005; 96360; 99284

== ENCOUNTER 2022-08-27 17:54 | Emergency (ER) | payer OTHER ==
[2022-08-27] MEDS ORDERED: BENADRYL 50 MG/ML IV ONE (18:27)
[2022-08-27] MEDS ORDERED: TYLENOL 325 MG PO ONE (18:27)
[2022-08-27] MEDS ORDERED: TORAdol 30 mg Injection IV ONE (18:27)
[2022-08-27] MEDS ORDERED: Reglan 10 MG/2 ML IV ONE (18:27)
[2022-08-27] MEDS ORDERED: Sodium Chloride 0.9% 1000 ML 1,000 ML IV STA (18:27)
--- NOTE | 2022-08-27 18:43 | ERPHSYRPT ---
- History of Present Illness Time Seen by Provider: 08/27/22 17:56 Source: patient Exam Limitations: no limitations Patient Subjective Stated Complaint: Headache Triage Nursing Assessment: Patient ambulated back to ED and transferred self to bed. Patient A+O X 3. Patient's skin pink, warm and dry. Patient complains of headache that started yesterday that has gotten worse today. Patient states pain is in the top to bottom into neck 10/03. Patient states she also has a sore throat and productive cough with yellow sputum. Physician History: 21 years old female with history of anxiety, hypertension, hyperlipidemia, GERD, seasonal allergies presented to the ER with chief complaint of headache since yesterday after she was outside in the hot almost all day. Reports dull aching to sharp headache, partial relief with taking Tylenol. No numbness tingling or focal weakness. No stiffness of the neck. No associated nausea or vomiting. No visual disturbance. Does report having mild cough congestion and sore throat as well since yesterday. No fever or chills reported. Timing/Duration: yesterday, gradual onset, worse Quality: dullness, sharpness Head Pain Location: global Severity of Pain-Max: moderate Severity of Pain-Current: moderate Recent Head Trauma: no recent headache/trauma Associated Symptoms: nasal congestion, nasal drainage, No dizziness, No fatigue, No facial pain, No fever/chills, No flushing, No light-headedness, No loss of consciousness, No nausea/vomiting, No neck pain, No numbness in legs/feet, No sensitive to light, No stiff neck, No trouble walking, No visual disturbance Previous symptoms: no prior history Allergies/Adverse Reactions: amoxicillin Allergy (Verified 08/27/22 18:08) Hives cefaclor [From Ceclor] Allergy (Verified 08/27/22 18:08) Hives cefazolin Allergy (Verified 08/27/22 18:08) Hives paroxetine [From Paxil] Allergy (Verified 08/27/22 18:08) hallucinations Home Medications: Montelukast Sodium [Singulair] 10 mg PO DAILY 07/23/16 [History] Diazepam [Valium] 2 mg PO DAILY PRN 05/26/17 [History] Sertraline HCl [Zoloft] 50 mg PO DAILY 06/09/18 [History] lisinopriL [Zestril] 5 mg PO DAILY 06/09/18 [History] [place]-3 Fatty Acids/Fish Oil [Fish Oil 1,000 mg Capsule] 2,000 mg PO BID 06/15/18 [History] norgestimate-ethinyl estradioL [Tri-Sprintec] 1 each PO DAILY 07/24/19 [History] Pantoprazole 20 mg [Protonix 20MG Tablet] 20 mg PO DAILY 02/26/21 [History] Hx Tetanus, Diphtheria Vaccination/Date Given: Yes Hx Influenza Vaccination/Date Given: Yes Hx Pneumococcal Vaccination/Date Given: No Travel Risk - International Travel Have you traveled outside of the country in past 3 weeks: No - Coronavirus Screening Are you exhibiting any of the following symptoms?: No Close contact with a COVID-19 positive Pt in past 14-21 Days: No - Vaccine Status Have you recieved a Covid-19 vaccination: Yes Records Clerk: Nevro - Vaccination Dates Date of 2cond Vaccination (if applicable): MAY 2020 - Review of Systems Constitutional: Fatigue, Weakness Eyes: No Symptoms Ears, Nose, & Throat: Nose Congestion, Nose Discharge, Throat Pain, Throat Swelling Respiratory: Cough Cardiac: No Symptoms Abdominal/Gastrointestinal: No Symptoms Genitourinary Symptoms: No Symptoms Skin: No Symptoms Neurological: Headache, No Dizziness Psychological: Anxiety Endocrine: No Symptoms Hematologic/Lymphatic: No Symptoms - Past Medical History Pertinent Past Medical History: Yes Neurological History: No Pertinent History ENT History: No Pertinent History Cardiac History: No Pertinent History Respiratory History: Asthma Endocrine Medical History: Other Musculoskeletal History: No Pertinent History GI Medical History: Gallbladder Disease History: Renal Disease Psycho-Social History: Anxiety, Depression Female Reproductive Disorders: No Pertinent History Other Medical History: IGA Nephropathy stage 1 - Past Surgical History Past Surgical History: Yes Neuro Surgical History: No Pertinent History Cardiac: No Pertinent History Respiratory: No Pertinent History Gastrointestinal: Cholecystectomy Genitourinary: Other Musculoskeletal: No Pertinent History Female Surgical History: No Pertinent History Other Surgical History: Kidney Biopsy, Bladder scope - Social History Smoking Status: Never smoker Exposure to second hand smoke: No Drug Use: none Patient Lives Alone: No Significant Family History: no pertinent family hx - Female History Hx Last Menstrual Period: two weeks ago Hx Now: No - Nursing Vital Signs Nursing Vital Signs: Initial Vital Signs Temperature 98.5 F 08/27/22 18:09 Pulse Rate 90 08/27/22 18:09 Respiratory Rate 18 08/27/22 18:09 Blood Pressure 112/82 08/27/22 18:09 O2 Sat by Pulse Oximetry 96 08/27/22 18:09 Pain Scale Pain Intensity 0 - Physical Exam General Appearance: no apparent distress, alert Eye Exam: PERRL/EOMI Ears, Nose, Throat Exam: TMs normal, pharyngeal erythema Neck Exam: normal inspection, non-tender, supple, full range of motion, No meningismus, No lymphadenopathy Respiratory Exam: normal breath sounds, lungs clear Cardiovascular Exam: regular rate/rhythm, normal heart sounds Gastrointestinal/Abdominal Exam: soft, normal bowel sounds, No tenderness Back Exam: normal inspection, normal range of motion Extremity Exam: normal inspection, normal range of motion Mental Status Exam: alert, oriented x 3, cooperative, 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: normal hearing, normal speech, PERRL Coordination/Gait Exam: normal finger to nose, normal gait, normal cerebellar function, negative Romberg's sign Motor/Sensory Exam: negative Babinski's sign DTR Exam: bicep (R): 2+, bicep (L): 2+, knee (R): 2+, knee (L): 2+ Skin Exam: normal color SpO2 Interpretation: normal SpO2: 96 O2 Delivery: Room Air Ordered Tests: Active Orders 24 hr Category Date Time Status IV Insertion STAT Care 08/27/22 18:27 Active CULTURE,URINE Stat Lab 08/27/22 18:45 Received HCG QUALITATIVE, URINE Stat Lab 08/27/22 18:45 Completed UA W/RFX UR CULTURE Stat Lab 08/27/22 18:45 Completed Medication Summary Discontinued Medications Generic Name Dose Route Start Last Admin Trade Name Haroon PRN Reason Stop Dose Admin Acetaminophen 975 mg 08/27/22 18:27 08/27/22 19:09 Acetaminophen 325 Mg Tablet PO 08/27/22 18:28 975 mg STAT ONE Administration Acetaminophen Confirm 08/27/22 19:03 Acetaminophen 325 Mg Tablet Administered 08/27/22 19:04 Dose 975 mg .ROUTE .STK-MED ONE Diphenhydramine HCl 25 mg 08/27/22 18:27 08/27/22 19:12 Diphenhydramine Hcl 50 Mg/Ml Vial IV 08/27/22 18:28 25 mg STAT ONE Administration Diphenhydramine HCl Confirm 08/27/22 19:02 Diphenhydramine Hcl 50 Mg/Ml Vial Administered 08/27/22 19:03 Dose 50 mg .ROUTE .STK-MED ONE Sodium Chloride 1,000 mls @ 999 mls/hr 08/27/22 18:27 08/27/22 19:06 Sodium Chloride 0.9% 1000 Ml IV 08/27/22 19:27 999 mls/hr .Q1H1M STA Administration Sodium Chloride Confirm 08/27/22 19:03 Sodium Chloride 0.9% 1000 Ml Administered 08/27/22 19:04 Dose 1,000 mls @ ud .ROUTE .STK-MED ONE Ketorolac Tromethamine 30 mg 08/27/22 18:27 08/27/22 19:18 Ketorolac Tromethamine 30 Mg/Ml Inj IV 08/27/22 18:28 30 mg STAT ONE Administration Ketorolac Tromethamine Confirm 08/27/22 19:02 Ketorolac Tromethamine 30 Mg/Ml Inj Administered 08/27/22 19:03 Dose 30 mg .ROUTE .STK-MED ONE Metoclopramide HCl 10 mg 08/27/22 18:27 08/27/22 19:14 Metoclopramide Hcl 10 Mg/2 Ml Vial IV 08/27/22 18:28 10 mg STAT ONE Administration Metoclopramide HCl Confirm 08/27/22 19:03 Metoclopramide Hcl 10 Mg/2 Ml Vial Administered 08/27/22 19:04 Dose 10 mg .ROUTE .STK-MED ONE Trimethoprim/Sulfamethoxazole 1 tab 08/27/22 20:47 Smz/Tmp Ds Tablet 1 Tablet PO 08/27/22 20:48 STAT ONE Lab/Rad Data: Laboratory Results 08/27/22 08/27/22 08/27/22 Range/Units 18:55 18:45 18:45 Urine Color Dark Yellow A (Yellow) Urine Appearance Cloudy A (Clear) Urine pH 5.5 (4.6-8.0) Ur Specific [place] 1.025 (1.005-1.030) Urine Protein 300 A (Negative) Urine Glucose (UA) Negative (Negative) mg/dL Urine Ketones Negative (Negative) Urine Blood Large A (Negative) Urine Nitrite Negative (Negative) Urine Bilirubin Negative (Negative) Urine Urobilinogen 1.0 A (0.2) mg/dL Ur Leukocyte Esterase Moderate A (Negative) U Hyaline Cast (Auto) NONE SEEN (0-2) /LPF Urine Microscopic RBC >100 A (0-5) /HPF Urine Microscopic WBC 21-50 A (0-5) /HPF Ur Epithelial Cells Rare (None Seen) /HPF Urine Bacteria None Seen (None Seen) /HPF Urine Culture Reflexed YES (NO) Urine HCG, Qual NEGATIVE (NEGATIVE) Influenza Type A Ag NEGATIVE (NEGATIVE) Influenza Type B Ag NEGATIVE (NEGATIVE) RSV (PCR) NEGATIVE (NEGATIVE) SARS-CoV-2 (PCR) NEGATIVE (NEGATIVE) Group A Strep Antibody NOT DETECTED (NEGATIVE) - Progress Progress: improved, re-examined Air Movement: good Progress Note: 08/27/22 18:42 21 years old female with history of anxiety, hypertension, hyperlipidemia, GERD, seasonal allergies presented to the ER with chief complaint of headache since yesterday after she was outside in the hot almost all day. Reports dull aching to sharp headache, partial relief with taking Tylenol. No numbness tingling or focal weakness. No stiffness of the neck. No associated nausea or vomiting. No visual disturbance. Does report having mild cough congestion and sore throat as well since yesterday. No fever or chills reported. 08/27/22 20:49 She is given fluid and migraine cocktail, on reevaluation her headache is completely resolved. She has nonfocal neuro exam throughout her stay in the ER. No signs of meningismus. Has negative flu RSV COVID and strep. She does have UTI and started on Bactrim. Recommended outpatient follow-up with primary care. Tylenol/ibuprofen as needed. Discussed signs symptoms of worsening needing return to ER which she seems understanding. Blood Culture(s) Obtained: No Antibiotics given: No Counseled pt/family regarding: lab results, diagnosis, need for follow-up Medical Desision Making - Diagnostic Testing Diagnostic test were ordered, analyzed, and reviewed by me: Yes - Risk of complications The pt has a mod risk of morbidity or mortality based on: Need for prescription drug management - Departure Departure Disposition: Home Clinical Impression: UTI (urinary tract infection), Headache Condition: Stable Critical Care Time: No Referrals: SARATH MATHIS [Primary Care Provider] - Follow up with PCP 2 days Instructions: Headache, Adult (DC) Additional Instructions: Take Tylenol/ibuprofen as needed. Follow-up with primary care for reevaluation. Return to ER for intractable headache, vomiting, fever chills, numbness tingling focal weakness etc. Prescriptions: Ibuprofen 600 mg PO Q6HPRN PRN 10 Days #20 tablet PRN Reason: Pain Smz/Tmp Ds Tablet [Bactrim Ds Tablet] 1 udtab PO BID #14 tablet
[2022-08-27] MEDS ORDERED: BENADRYL 50 MG/ML ONE (19:02)
[2022-08-27] MEDS ORDERED: TORAdol 30 mg Injection ONE (19:02)
[2022-08-27] MEDS ORDERED: Reglan 10 MG/2 ML ONE (19:03)
[2022-08-27] MEDS ORDERED: Sodium Chloride 0.9% 1000 ML 1,000 ML ONE (19:03)
[2022-08-27] MEDS ORDERED: TYLENOL 325 MG ONE (19:03)
[2022-08-27 19:09] LABS: HCG URINE TEST NEGATIVE (NEGATIVE)
[2022-08-27 19:12] LABS: Appearance Cloudy (Clear); Bacteria None Seen /HPF (None Seen); Bilirubin Negative (Negative); Blood Large (Negative); Epithelial Cells Rare /HPF (None Seen); Glucose, Urine Negative (Negative); Hyaline Casts NONE SEEN /LPF (0-2); Ketones Negative (Negative); Leukocyte Esterase Moderate (Negative); Nitrite Negative (Negative); Ph 5.5 (4.6-8.0); Protein,Urine Dip 300 (Negative); RBC >100 /HPF (0-5); Specific Gravity 1.025 (1.005-1.030); WBC 21-50 /HPF (0-5)
[2022-08-27 19:16] LABS: ADD URINE CULTURE? YES (NO)
[2022-08-27 19:25] LABS: Group A Strep NOT DETECTED (NEGATIVE)
[2022-08-27 19:37] LABS: INFLUENZA A NEGATIVE (NEGATIVE); INFLUENZA B NEGATIVE (NEGATIVE); RESPIRATORY SYNCTIAL VIRUS NEGATIVE (NEGATIVE); SARS-CoV-2 Xpert Express NEGATIVE (NEGATIVE)
[2022-08-27] MEDS ORDERED: BACTRIM DS TABLET PO ONE ×2 (20:47→20:50)
[2022-08-27 21:05] VITALS: BP 105/81; PULSE 76; O2SAT 97
== END 2022-08-27 21:05 | disposition home or self-care (01) ==
LOC: ED 17:54
DX: N39.0 Urinary tract infection, site not specified (principal); R51.9 Headache, unspecified; R05.1 Acute cough; J02.9 Acute pharyngitis, unspecified; I10 Essential (primary) hypertension; E78.5 Hyperlipidemia, unspecified; Z79.899 Other long term (current) drug therapy
CPT/HCPCS: 0241U; 36000; 81001; 81025; 87086; 87651; 96374; 96375; 99284; J1200; J1885; A9270-GY

== ENCOUNTER 2024-02-17 20:58 | Observation (INO) | payer OTHER ==
--- NOTE | 2024-02-17 21:20 | ERPHSYRPT ---
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 Pt reports she started having vomiting about 30min after eating at [employer]. Pt reports she has been unable to keep much food down since this vomiting sta rted. Pt endorses some epigastric discomfort as well as body aches and HENDRICKS, denies any known fevers. Pt has hx of cholecystectomy, denies hx of appendectomy. Pt denies any hematochezia or hematemesis. Pt reports hx of IgA nephropathy. Timing/Duration: today, hour(s) (6) Severity: moderate Modifying Factors: Improves With: nothing Associated Symptoms: nausea, vomiting, abdominal pain, cough, headaches, loss of appetite, malaise, No shortness of breath, No diaphoresis, No chest pain, No fever Allergies/Adverse Reactions: amoxicillin Allergy (Verified 02/17/24 21:01) Hives cefaclor [From Ceclor] Allergy (Verified 02/17/24 21:01) Hives cefazolin Allergy (Verified 02/17/24 21:01) Hives paroxetine [From Paxil] Allergy (Verified 02/17/24 21:01) hallucinations Home Medications: Montelukast Sodium [Singulair] 10 mg PO DAILY 07/23/16 [History] Sertraline HCl [Zoloft] 50 mg PO DAILY 06/09/18 [History] [place]-3 Fatty Acids/Fish Oil [Fish Oil 1,000 mg Capsule] 2,000 mg PO BID 06/15/18 [History] Pantoprazole 20 mg [Protonix 20MG Tablet] 20 mg PO DAILY 02/26/21 [History] Budesonide [Tarpeyo] 4 mg PO DAILY 02/17/24 [History] Losartan/Hydrochlorothiazide [Losartan-Hctz 100-25 mg Tab] 1 tab PO DAILY 02/17/24 [History] buPROPion HCL [Bupropion HCl Sr] 150 mg PO DAILY 02/17/24 [History] Hx Tetanus, Diphtheria Vaccination/Date Given: Yes Hx Influenza Vaccination/Date Given: Yes Hx Pneumococcal Vaccination/Date Given: No - Review of Systems Constitutional: Chills, Fatigue, Malaise Ears, Nose, & Throat: No Symptoms Respiratory: Cough, No Dyspnea, No Stridor, No Wheezing Cardiac: No Chest Pain, No Palpitations, No Syncope Abdominal/Gastrointestinal: Abdominal Pain, Nausea, Vomiting, Diarrhea, No Constipation, No Hematemesis, No Hematochezia, No Melena Genitourinary Symptoms: No Dysuria, No Frequency, No Hematuria, No Hesitancy - Past Medical History Pertinent Past Medical History: Yes Neurological History: No Pertinent History ENT History: No Pertinent History Cardiac History: High Cholesterol Respiratory History: Asthma, Other Endocrine Medical History: Other Musculoskeletal History: Other GI Medical History: Gallbladder Disease History: Renal Disease Psycho-Social History: Anxiety, Depression Female Reproductive Disorders: No Pertinent History Other Medical History: IGA nephropathy (dx 2019, recently approved for new medication), COVID-19, L wrist (05/27/23), cholecystectomy (2017), kidney biopsy (2019), Anixety, Depression - Past Surgical History Past Surgical History: Yes Neuro Surgical History: No Pertinent History Cardiac: No Pertinent History Respiratory: No Pertinent History Gastrointestinal: Cholecystectomy Genitourinary: Other Musculoskeletal: No Pertinent History Female Surgical History: No Pertinent History Other Surgical History: Kidney Biopsy, Bladder scope Significant Family History: no pertinent family hx - Social History Smoking Status: Never smoker Exposure to second hand smoke: No Drug Use: none Patient Lives Alone: No - Nursing Vital Signs Nursing Vital Signs: Initial Vital Signs Temperature 97.5 F 02/17/24 21:14 Pulse Rate 113 H 02/17/24 21:14 Respiratory Rate 19 02/17/24 21:14 Blood Pressure 102/78 02/17/24 21:14 O2 Sat by Pulse Oximetry 99 02/17/24 21:14 Pain Scale Pain Intensity 7 - Physical Exam General Appearance: no apparent distress, alert Ears, Nose, Throat Exam: normal ENT inspection Respiratory Exam: normal breath sounds, lungs clear, airway intact, No chest tenderness, No respiratory distress Cardiovascular Exam: regular rate/rhythm, normal heart sounds, normal peripheral pulses Gastrointestinal/Abdomen Exam: soft, normal bowel sounds, tenderness (mild epigastric TTP), No distention, No guarding, No rebound SpO2 Interpretation: normal SpO2: 97 O2 Delivery: Room Air Ordered Tests: Active Orders 24 hr Category Date Time Status IV Insertion STAT Care 02/17/24 21:18 Active Observation [Place in Observation] ROUTINE Care 02/17/24 23:34 Ordered ABDOMEN AND PELVIS W/0 CONTRAS [CT] Stat Exams 02/17/24 21:36 Completed CHEST 1 VIEW (PORTABLE) Stat Exams 02/17/24 22:16 Taken CBC W DIFF AM.LAB Lab 02/18/24 04:00 Ordered CBC W DIFF Stat Lab 02/17/24 21:35 Completed CBC W DIFF Stat Lab 02/17/24 23:26 Ordered CMP AM.LAB Lab 02/18/24 04:00 Ordered CMP Stat Lab 02/17/24 21:35 Completed CMP Stat Lab 02/17/24 23:26 Ordered HCG QUALITATIVE, SERUM Stat Lab 02/17/24 21:35 Completed PROCALCITONIN Stat Lab 02/17/24 Completed UA W/RFX UR CULTURE Stat Lab 02/17/24 23:08 Ordered Transfer Order Routine Transfer 02/17/24 Ordered Medication Summary Generic Name Dose Route Start Last Admin Trade Name Freq PRN Reason Stop Dose Admin Sodium Chloride 1,000 mls @ 100 mls/hr 02/17/24 23:30 Sodium Chloride 0.9% 1000 Ml IV 03/18/24 23:29 .Q10H BAMBI Ondansetron HCl 4 mg 02/17/24 23:26 Ondansetron Hcl 4 Mg/2 Ml Vial IV 03/18/24 23:25 Q6H PRN PRN NAUSEA/VOMITING Discontinued Medications Generic Name Dose Route Start Last Admin Trade Name Freq PRN Reason Stop Dose Admin Diphenhydramine HCl 25 mg 02/17/24 23:27 Diphenhydramine Hcl 50 Mg/Ml Vial IV 02/17/24 23:28 STAT ONE Sodium Chloride 1,000 mls @ 999 mls/hr 02/17/24 21:18 02/17/24 23:21 Sodium Chloride 0.9% 1000 Ml IV 02/17/24 22:18 Infused .Q1H1M STA Infusion Sodium Chloride Confirm 02/17/24 21:40 Sodium Chloride 0.9% 1000 Ml Administered 02/17/24 21:41 Dose 1,000 mls @ ud .ROUTE .STK-MED ONE Ondansetron HCl 4 mg 02/17/24 21:18 02/17/24 21:40 Ondansetron Hcl 4 Mg/2 Ml Vial IV 02/17/24 21:19 4 mg STAT ONE Administration Ondansetron HCl Confirm 02/17/24 21:39 Ondansetron Hcl 4 Mg/2 Ml Vial Administered 02/17/24 21:40 Dose 4 mg .ROUTE .STK-MED ONE Lab/Rad Data: Laboratory Result Diagrams 02/17/24 21:35 02/17/24 21:35 Laboratory Results 02/17/24 02/17/24 02/17/24 Range/Units Unknown 21:38 21:35 WBC (3.98-10.04) x10^3/uL RBC (3.93-5.22) x10^6/uL Hgb (11.2-15.7) g/dL Hct (34.1-44.9) % MCV (79.4-94.8) fL MCH (25.6-32.2) pg MCHC (32.2-35.5) g/dL RDW (11.7-14.4) % Plt Count (182-369) x10^3/uL MPV (9.4-12.3) fL Gran % (34.0-71.1) % Immature Gran % (Auto) (0.001-0.429) % Nucleat RBC Rel Count (0.00-0.2) % Eos # (Auto) (0.04-0.36) x10^3/uL Immature Gran # (Auto) (0.001-0.031) x10^3u/L Absolute Lymphs (auto) (1.18-3.74) x10^3/uL Absolute Monos (auto) (0.24-0.86) x10^3/uL Absolute Nucleated RBC (0.00-0.012) x10^3u/L Lymphocytes % (19.3-51.7) % Monocytes % (4.7-12.5) % Eosinophils % (0.7-5.8) % Basophils % (0.1-1.2) % Absolute Granulocytes (1.56-6.13) x10^3/uL Basophils # (0.01-0.08) x10^3/uL Sodium (135-145) mmol/L Potassium (3.5-5.1) mmol/L Chloride (98-107) mmol/L Carbon Dioxide (22-30) mmol/L Anion Gap (5-15) MEQ/L BUN (7-17) mg/dL Creatinine (0.52-1.04) mg/dL Estimated GFR ML/MIN Glucose (74-106) mg/dL Calcium (8.4-10.2) mg/dL Total Bilirubin (0.2-1.3) mg/dL AST (14-36) U/L ALT (0-35) U/L Alkaline Phosphatase (38-126) U/L Serum Total Protein (6.3-8.2) g/dL Albumin (3.5-5.0) g/dL Procalcitonin 0.357 H (0.030-0.080) ng/mL Serum HCG, Qual NEGATIVE (NEGATIVE) Influenza Type A Ag NEGATIVE (NEGATIVE) Influenza Type B Ag NEGATIVE (NEGATIVE) RSV (PCR) NEGATIVE (NEGATIVE) SARS-CoV-2 (PCR) NEGATIVE (NEGATIVE) 02/17/24 02/17/24 Range/Units 21:35 21:35 WBC 22.5 H (3.98-10.04) x10^3/uL RBC 6.23 H (3.93-5.22) x10^6/uL Hgb 17.3 H (11.2-15.7) g/dL Hct 53.4 H (34.1-44.9) % MCV 85.7 (79.4-94.8) fL MCH 27.8 (25.6-32.2) pg MCHC 32.4 (32.2-35.5) g/dL RDW 14.5 H (11.7-14.4) % Plt Count 438 H (182-369) x10^3/uL MPV 8.4 L (9.4-12.3) fL Gran % 85.5 H (34.0-71.1) % Immature Gran % (Auto) 0.8 H (0.001-0.429) % Nucleat RBC Rel Count 0.0 (0.00-0.2) % Eos # (Auto) 0.26 (0.04-0.36) x10^3/uL Immature Gran # (Auto) 0.19 H (0.001-0.031) x10^3u/L Absolute Lymphs (auto) 1.04 L (1.18-3.74) x10^3/uL Absolute Monos (auto) 1.67 H (0.24-0.86) x10^3/uL Absolute Nucleated RBC 0.00 (0.00-0.012) x10^3u/L Lymphocytes % 4.6 L (19.3-51.7) % Monocytes % 7.4 (4.7-12.5) % Eosinophils % 1.2 (0.7-5.8) % Basophils % 0.5 (0.1-1.2) % Absolute Granulocytes 19.24 H (1.56-6.13) x10^3/uL Basophils # 0.11 H (0.01-0.08) x10^3/uL Sodium 138 (135-145) mmol/L Potassium 3.8 (3.5-5.1) mmol/L Chloride 98 (98-107) mmol/L Carbon Dioxide 27 (22-30) mmol/L Anion Gap 17.3 H (5-15) MEQ/L BUN 22 H (7-17) mg/dL Creatinine 1.21 H (0.52-1.04) mg/dL Estimated GFR 64.2 ML/MIN Glucose 161 H (74-106) mg/dL Calcium 10.1 (8.4-10.2) mg/dL Total Bilirubin 0.80 (0.2-1.3) mg/dL AST 34 (14-36) U/L ALT 34 (0-35) U/L Alkaline Phosphatase 121 (38-126) U/L Serum Total Protein 10.4 H (6.3-8.2) g/dL Albumin 4.9 (3.5-5.0) g/dL Procalcitonin (0.030-0.080) ng/mL Serum HCG, Qual (NEGATIVE) Influenza Type A Ag (NEGATIVE) Influenza Type B Ag (NEGATIVE) RSV (PCR) (NEGATIVE) SARS-CoV-2 (PCR) (NEGATIVE) - Progress Progress: improved Progress Note: 02/17/24 23:02 CT abd/pel showed no acute process labs suggestive of dehydration, cbc hemoconcentrated, slight elevation in Cr procal elevated 0.375 UA pending 02/17/24 23:03 02/17/24 23:17 I discussed admission for obs w/ Dr Alvarado Brooke who is willing to accept Medical Desision Making - Diagnostic Testing Diagnostic test were ordered, analyzed, and reviewed by me: Yes Radiological Interpretation: Interpreted by me, Reviewed by me, Teleradiologist Report - Risk of complications The pt has a high risk of morbidity or mortality based on: Decision regarding hospitilization or escalation of hosp level of care - Departure Departure Disposition: Observation Clinical Impression: Intractable nausea and vomiting, Dehydration Diarrhea Qualifiers: Diarrhea type: unspecified type Qualified Code(s): R19.7 - Diarrhea, unspecified Condition: Stable Critical Care Time: No Referrals: MARQUISE GAMBOA DO [Primary Care Provider] - Follow up/PCP as directed
[2024-02-17] MEDS ORDERED: Zofran 4 MG/2 ML VIAL ONE (21:39)
[2024-02-17] MEDS: Sodium Chloride 0.9% 1000 ML 1,000 ML IV STA (21:40)
[2024-02-17] MEDS: Zofran 4 MG/2 ML VIAL IV ONE (21:40)
[2024-02-17] MEDS ORDERED: Sodium Chloride 0.9% 1000 ML 1,000 ML ONE (21:40)
[2024-02-17 21:41] LABS: Absolute Neutrophil Ct (ANC) 19.24 x10^3/uL (1.56-6.13); BASOPHIL % 0.5 % (0.1-1.2); Basophil (Absolute #) 0.11 x10^3/uL (0.01-0.08); Eosinophil % 1.2 % (0.7-5.8); Eosinophil (Absolute #) 0.26 x10^3/uL (0.04-0.36); Hematocrit 53.4 % (34.1-44.9); Hemoglobin 17.3 g/dL (11.2-15.7); IMMATURE GRAN # 0.19 x10^3u/L (0.001-0.031); IMMATURE GRAN % 0.8 % (0.001-0.429); Lymphocyte (Absolute #) 1.04 x10^3/uL (1.18-3.74); Lymphocytes % 4.6 % (19.3-51.7); Mean Cell Volume 85.7 fL (79.4-94.8); Mean Corpuscular Hemoglobin 27.8 pg (25.6-32.2); Mean Corpuscular Hgb Concent. 32.4 g/dL (32.2-35.5); Mean Platelet Volume 8.4 fL (9.4-12.3); Monocyte (Absolute #) 1.67 x10^3/uL (0.24-0.86); Monocytes % 7.4 % (4.7-12.5); Neutrophil % 85.5 % (34.0-71.1); Platelet Count 438 x10^3/uL (182-369); Red Blood Count 6.23 x10^6/uL (3.93-5.22); Red Cell Distribution Width 14.5 % (11.7-14.4); White Blood Count 22.5 x10^3/uL (3.98-10.04)
[2024-02-17 21:53] LABS: HCG SERUM TEST NEGATIVE (NEGATIVE)
[2024-02-17 21:54] LABS: ALBUMIN 4.9 g/dL (3.5-5.0); ANION GAP 17.3 MEQ/L (5-15); BILIRUBIN,TOTAL 0.8 mg/dL (0.2-1.3); Calcium 10.1 mg/dL (8.4-10.2); Creatinine 1 1.21 mg/dL (0.52-1.04); EST GLOMERULAR FILTRATION RATE 64.2 ML/MIN; Potassium 3.8 mmol/L (3.5-5.1); Total Protein 10.4 g/dL (6.3-8.2)
[2024-02-17 22:20] LABS: INFLUENZA A NEGATIVE (NEGATIVE); INFLUENZA B NEGATIVE (NEGATIVE); RESPIRATORY SYNCTIAL VIRUS NEGATIVE (NEGATIVE); SARS-CoV-2 Xpert Express NEGATIVE (NEGATIVE)
--- NOTE | 2024-02-17 22:42 | XRAY ---
CLINICAL HISTORY: n/v/epigastric pain COMPARISON: - TECHNIQUE: Contiguous axial images were obtained from the level of the diaphragm to the pubic symphysis without intravenous or oral contrast. Coronal and sagittal reconstructions were likewise performed and indicated to increase the sensitivity for detecting clinically relevant pathology. CT scan was performed according to ALARA (as low as reasonable achievable). FINDINGS: The visualized lung bases are clear. Evaluation of the abdominal and pelvic visceral organs is limited without intravenous contrast. The unenhanced liver, spleen, pancreas, and adrenal glands are grossly unremarkable. The gallbladder is not visualized. The kidneys are normal in size and attenuation without obvious calcification. There is no hydronephrosis or perinephric stranding. The ureters are normal in caliber. No adenopathy or fluid collections are seen. No evidence of focal or diffuse bowel wall thickening or evidence of bowel obstruction is seen. No evidence of inflammed appendix. The aorta is normal in caliber. The urinary bladder is normal in contour. No aggressive appearing osseous lesions are identified. IMPRESSION: 1. No acute abdominal pathology is detected. Electronically Signed by: Freddie Hill MD. (02/17/2024 22:37:59 EST)
--- NOTE | 2024-02-17 23:25 | PCM.HP ---
History of Present Illness - Chief Complaint Chief Complaint: Intractable N/V History of Present Illness: is a 23 year old female who presents with acute nausea, vomiting that started 30 minutes after eating at [employer]. Despite numerous doses of zofran, patient continued to report nausea and vomiting, retching. No fever. No urinary symptoms. No cough, chest pain. In the ED, CT A/P was unremarkable. UA was also unremarkable. Admit for likely viral GI bug. - Review of Systems Constitutional: No Fever, No Chills Eyes: No Symptoms Ears, Nose, & Throat: No Symptoms Respiratory: No Cough, No Short Of Breath Cardiac: No Chest Pain, No Edema, No Syncope Abdominal/Gastrointestinal: Vomiting Genitourinary Symptoms: No Dysuria Musculoskeletal: No Back Pain, No Neck Pain Skin: No Rash Neurological: No Dizziness, No Focal Weakness, No Sensory Changes Psychological: No Symptoms Endocrine: No Symptoms Hematologic/Lymphatic: No Symptoms Immunological/Allergic: No Symptoms Medications & Allergies Home Medications: Home Medication List Montelukast Sodium [Singulair] 10 mg PO DAILY 07/23/16 [History Confirmed 02/17/24] Sertraline HCl [Zoloft] 50 mg PO DAILY 06/09/18 [History Confirmed 02/17/24] [place]-3 Fatty Acids/Fish Oil [Fish Oil 1,000 mg Capsule] 2,000 mg PO BID 06/15/18 [History Confirmed 02/17/24] Pantoprazole 20 mg [Protonix 20MG Tablet] 20 mg PO DAILY 02/26/21 [History Confirmed 02/17/24] Budesonide [Tarpeyo] 4 mg PO DAILY 02/17/24 [History Confirmed 02/17/24] Losartan/Hydrochlorothiazide [Losartan-Hctz 100-25 mg Tab] 1 tab PO DAILY 02/17/24 [History Confirmed 02/17/24] buPROPion HCL [Bupropion HCl Sr] 150 mg PO DAILY 02/17/24 [History Confirmed 02/17/24] Allergies/Adverse Reactions: Allergies Allergy/AdvReac Type Severity Reaction Status Date / Time amoxicillin Allergy Hives Verified 02/17/24 21:01 cefaclor [From Ceclor] Allergy Hives Verified 02/17/24 21:01 cefazolin Allergy Hives Verified 02/17/24 21:01 paroxetine [From Paxil] Allergy hallucinati Verified 02/17/24 21:01 ons - Past Medical History Past Medical History: Yes Neurological History: No Pertinent History ENT History: No Pertinent History Cardiac History: High Cholesterol Respiratory History: Asthma, Other Endocrine Medical History: Other Musculoskelatal History: Other GI Medical History: Gallbladder Disease History: Renal Disease Pyscho-Social History: Anxiety, Depression Reproductive Disorders: No Pertinent History Comment: IGA nephropathy (dx 2019, recently approved for new medication), COVID- 19, L wrist (05/27/23), cholecystectomy (2018), kidney biopsy (2019), Anixety, Depression - Female History Hx Last Menstrual Period: 3 weeks ago Are you now?: No - Past Surgical History Past Surgical History: Yes Neuro Surgical History: No Pertinent History Cardiac History: No Pertinent History Respiratory Surgery: No Pertinent History GI Surgical History: Cholecystectomy Genitourinary Surgical Hx: Other Musculskeletal Surgical Hx: No Pertinent History Female Surgical History: No Pertinent History Other Surgical History: Kidney Biopsy, Bladder scope Significant Family History: no pertinent family hx - Social History Smoking Status: Never smoker Exposure to second hand smoke: No Alcohol: None Drug Use: none - Social Determinants of Health Will the patient participate in the screening: Yes Do you worry about a steady place to live?: No Do you have any problems with any of the following?: No known problems In the past 12 months,have you had to go without utilities?: No Have you or anyone in your house had to go without enough: No Transportation Issues: No Has anyone in your support network made you feel unsafe?: No - Physical Exam Vital Signs: Vital Signs - 24 hr Temp Pulse Resp BP BP Pulse Ox 02/17/24 23:06 97 02/17/24 23:01 112 H 19 117/93 97 02/17/24 22:30 124/96 95 02/17/24 22:07 108 H 19 102/80 99 02/17/24 21:31 103 H 19 107/72 98 02/17/24 21:14 97.5 F 113 H 19 102/78 99 General Appearance: no apparent distress, alert Neurologic Exam: alert, oriented x 3, cooperative, normal mood/affect, nml cerebellar function, nml station & gait, sensation nml, No motor deficits Eye Exam: PERRL/EOMI, eyes nml inspection Ears, Nose, Throat Exam: normal ENT inspection, TMs normal, pharynx normal, moist mucous membranes Neck Exam: normal inspection, non-tender, supple, full range of motion Respiratory Exam: normal breath sounds, lungs clear, No respiratory distress Cardiovascular Exam: regular rate/rhythm, normal heart sounds, normal peripheral pulses Gastrointestinal/Abdomen Exam: soft, normal bowel sounds, No tenderness, No mass Back Exam: normal inspection, normal range of motion, No CVA tenderness, No vertebral tenderness Extremity Exam: normal inspection, normal range of motion, pelvis stable Skin Exam: normal color, warm, dry, No rash Lymphatic Exam: No adenopathy Results - Labs Lab/Micro Results: Lab Results-Last 24 Hours 02/17/24 02/17/24 02/17/24 Range/Units 21:35 21:35 21:35 WBC 22.5 H (3.98-10.04) x10^3/uL RBC 6.23 H (3.93-5.22) x10^6/uL Hgb 17.3 H (11.2-15.7) g/dL Hct 53.4 H (34.1-44.9) % MCV 85.7 (79.4-94.8) fL MCH 27.8 (25.6-32.2) pg MCHC 32.4 (32.2-35.5) g/dL RDW 14.5 H (11.7-14.4) % Plt Count 438 H (182-369) x10^3/uL MPV 8.4 L (9.4-12.3) fL Gran % 85.5 H (34.0-71.1) % Immature Gran % (Auto) 0.8 H (0.001-0.429) % Nucleat RBC Rel Count 0.0 (0.00-0.2) % Eos # (Auto) 0.26 (0.04-0.36) x10^3/uL Immature Gran # (Auto) 0.19 H (0.001-0.031) x10^3u/L Absolute Lymphs (auto) 1.04 L (1.18-3.74) x10^3/uL Absolute Monos (auto) 1.67 H (0.24-0.86) x10^3/uL Absolute Nucleated RBC 0.00 (0.00-0.012) x10^3u/L Lymphocytes % 4.6 L (19.3-51.7) % Monocytes % 7.4 (4.7-12.5) % Eosinophils % 1.2 (0.7-5.8) % Basophils % 0.5 (0.1-1.2) % Absolute Granulocytes 19.24 H (1.56-6.13) x10^3/uL Basophils # 0.11 H (0.01-0.08) x10^3/uL Sodium 138 (135-145) mmol/L Potassium 3.8 (3.5-5.1) mmol/L Chloride 98 (98-107) mmol/L Carbon Dioxide 27 (22-30) mmol/L Anion Gap 17.3 H (5-15) MEQ/L BUN 22 H (7-17) mg/dL Creatinine 1.21 H (0.52-1.04) mg/dL Estimated GFR 64.2 ML/MIN Glucose 161 H (74-106) mg/dL Calcium 10.1 (8.4-10.2) mg/dL Total Bilirubin 0.80 (0.2-1.3) mg/dL AST 34 (14-36) U/L ALT 34 (0-35) U/L Alkaline Phosphatase 121 (38-126) U/L Serum Total Protein 10.4 H (6.3-8.2) g/dL Albumin 4.9 (3.5-5.0) g/dL Procalcitonin (0.030-0.080) ng/mL Serum HCG, Qual NEGATIVE (NEGATIVE) Influenza Type A Ag (NEGATIVE) Influenza Type B Ag (NEGATIVE) RSV (PCR) (NEGATIVE) SARS-CoV-2 (PCR) (NEGATIVE) 02/17/24 02/17/24 Range/Units 21:38 Unknown WBC (3.98-10.04) x10^3/uL RBC (3.93-5.22) x10^6/uL Hgb (11.2-15.7) g/dL Hct (34.1-44.9) % MCV (79.4-94.8) fL MCH (25.6-32.2) pg MCHC (32.2-35.5) g/dL RDW (11.7-14.4) % Plt Count (182-369) x10^3/uL MPV (9.4-12.3) fL Gran % (34.0-71.1) % Immature Gran % (Auto) (0.001-0.429) % Nucleat RBC Rel Count (0.00-0.2) % Eos # (Auto) (0.04-0.36) x10^3/uL Immature Gran # (Auto) (0.001-0.031) x10^3u/L Absolute Lymphs (auto) (1.18-3.74) x10^3/uL Absolute Monos (auto) (0.24-0.86) x10^3/uL Absolute Nucleated RBC (0.00-0.012) x10^3u/L Lymphocytes % (19.3-51.7) % Monocytes % (4.7-12.5) % Eosinophils % (0.7-5.8) % Basophils % (0.1-1.2) % Absolute Granulocytes (1.56-6.13) x10^3/uL Basophils # (0.01-0.08) x10^3/uL Sodium (135-145) mmol/L Potassium (3.5-5.1) mmol/L Chloride (98-107) mmol/L Carbon Dioxide (22-30) mmol/L Anion Gap (5-15) MEQ/L BUN (7-17) mg/dL Creatinine (0.52-1.04) mg/dL Estimated GFR ML/MIN Glucose (74-106) mg/dL Calcium (8.4-10.2) mg/dL Total Bilirubin (0.2-1.3) mg/dL AST (14-36) U/L ALT (0-35) U/L Alkaline Phosphatase (38-126) U/L Serum Total Protein (6.3-8.2) g/dL Albumin (3.5-5.0) g/dL Procalcitonin 0.357 H (0.030-0.080) ng/mL Serum HCG, Qual (NEGATIVE) Influenza Type A Ag NEGATIVE (NEGATIVE) Influenza Type B Ag NEGATIVE (NEGATIVE) RSV (PCR) NEGATIVE (NEGATIVE) SARS-CoV-2 (PCR) NEGATIVE (NEGATIVE) - Radiology Impressions Radiology Exams & Impressions: Radiology Procedures Category Date Time Status ABDOMEN AND PELVIS W/0 CONTRAS [CT] Stat Exams 02/17/24 21:36 Completed CHEST 1 VIEW (PORTABLE) Stat Exams 02/17/24 22:16 Taken Assessment/Plan (1) Intractable nausea and vomiting Current Visit: Yes Status: Acute Assessment & Plan: 1. Likely in setting of acute food poisoning 2. continue IVF 3. zofran PRN 4. trend labs Code(s): R11.2 - NAUSEA WITH VOMITING, UNSPECIFIED Telemedicine Encounter - Telemedicine Encounter Telemedicine Encounter: "The entirety of this encounter was performed via Telemedicine" This visit was performed using real-time audio and video connection between my location and thepatients locationwith the assistance of a surrogateat the patients location. Written or verbal consent was obtained from the patient/guardian to perform this visit using[employer] technology. Any patient questions regarding the telemedicine interaction were answered.
[2024-02-17] MEDS ORDERED: BENADRYL 50 MG/ML ONE (23:37)
[2024-02-17] MEDS: BENADRYL 50 MG/ML IV ONE (23:38)
[2024-02-17] MEDS: Sodium Chloride 0.9% 1000 ML 1,000 ML IV SCH (23:50)
[2024-02-18] MEDS: Zofran 4 MG/2 ML VIAL IV PRN (01:45)
[2024-02-18] MEDS: IMODIUM 2 MG PO PRN (01:45)
[2024-02-18] MEDS: TYLENOL 325 MG PO PRN ×2 (06:48→12:05)
[2024-02-18 07:41] LABS: Absolute Neutrophil Ct (ANC) 8.23 x10^3/uL (1.56-6.13); BASOPHIL % 0.6 % (0.1-1.2); Basophil (Absolute #) 0.07 x10^3/uL (0.01-0.08); Eosinophil % 1.4 % (0.7-5.8); Eosinophil (Absolute #) 0.16 x10^3/uL (0.04-0.36); Hematocrit 47.3 % (34.1-44.9); Hemoglobin 15.4 g/dL (11.2-15.7); IMMATURE GRAN # 0.09 x10^3u/L (0.001-0.031); IMMATURE GRAN % 0.8 % (0.001-0.429); Lymphocyte (Absolute #) 1.33 x10^3/uL (1.18-3.74); Lymphocytes % 11.9 % (19.3-51.7); Mean Cell Volume 84.6 fL (79.4-94.8); Mean Corpuscular Hemoglobin 27.5 pg (25.6-32.2); Mean Corpuscular Hgb Concent. 32.6 g/dL (32.2-35.5); Mean Platelet Volume 8.9 fL (9.4-12.3); Monocyte (Absolute #) 1.29 x10^3/uL (0.24-0.86); Monocytes % 11.5 % (4.7-12.5); Neutrophil % 73.8 % (34.0-71.1); Platelet Count 314 x10^3/uL (182-369); Red Blood Count 5.59 x10^6/uL (3.93-5.22); Red Cell Distribution Width 14.8 % (11.7-14.4); White Blood Count 11.2 x10^3/uL (3.98-10.04)
[2024-02-18 07:58] LABS: ALBUMIN 3.8 g/dL (3.5-5.0); ANION GAP 14.7 MEQ/L (5-15); BILIRUBIN,TOTAL 0.9 mg/dL (0.2-1.3); Calcium 8.2 mg/dL (8.4-10.2); Creatinine 1 1.18 mg/dL (0.52-1.04); EST GLOMERULAR FILTRATION RATE 66.2 ML/MIN; Total Protein 7.3 g/dL (6.3-8.2)
[2024-02-18 08:06] LABS: Potassium 2.8 mmol/L (3.5-5.1)
--- NOTE | 2024-02-18 08:33 | XRAY ---
Indication: Cough. Comparison: September 19, 2023 Portable chest less inflated and is now clear. Heart not enlarged. Bony thorax intact. No acute findings.
[2024-02-18] MEDS: POTASSIUM CHLORIDE 20 mEq IN WATER 100ML 100 ML IV SCH (09:48)
[2024-02-18] MEDS: Klor Con PO SCH (09:49)
[2024-02-18] MEDS: MAGNESIUM SULF 2 G/50 ML BAG 2 GM/50 ML PIGGYBACK IV ONE (11:30)
--- NOTE | 2024-02-18 12:25 | PCM.NOTE ---
Date and Time: 02/18/24 1215 Subjective Assessment: Patient admitted with severe nausea and vomiting. She vomited again this morning. She is also having diarrhea. She reports mild epigastric pain that is burning pain without radiation and without provocative or palliative factors. No fever. She has mild sore throat from vomiting. No cough or dyspnea or chest pain. No urinary complaints. - Review of Systems Constitutional: No Fever, No Chills Eyes: No Symptoms Ears, Nose, & Throat: Throat Pain Respiratory: No Symptoms, No Cough, No Short Of Breath Cardiac: No Symptoms, No Chest Pain, No Edema Abdominal/Gastrointestinal: Abdominal Pain, Nausea, Vomiting, Diarrhea Genitourinary Symptoms: No Symptoms, No Dysuria, No Frequency, No Hematuria Musculoskeletal: No Symptoms Skin: No Symptoms Neurological: No Symptoms Psychological: No Symptoms Endocrine: No Symptoms Hematologic/Lymphatic: No Symptoms Immunological/Allergic: No Symptoms All Other Systems: Reviewed and Negative Objective Exam General Appearance: mild distress Neurologic Exam: alert, oriented x 3, cooperative Skin Exam: normal color, warm, dry Eye Exam: PERRL, EOMI, eyes nml inspection Ears, Nose, Throat Exam: normal ENT inspection Lymphatic Exam: No adenopathy Respiratory Exam: normal breath sounds Cardiovascular Exam: regular rate/rhythm, normal heart sounds Gastrointestinal/Abdomen Exam: soft, normal bowel sounds, No tenderness, No mass Extremity Exam: normal inspection Back Exam: normal inspection Pelvic Exam: deferred Rectal Exam: deferred Objective Data Vital Signs: Vital Signs - 24 hr Temp Pulse Resp BP BP Pulse Ox 02/18/24 11:33 98.0 F 130 H 16 101/63 94 L 02/18/24 07:28 103.0 F 145 H 16 110/63 96 02/18/24 04:00 98.8 F 123 H 15 119/69 96 02/18/24 00:06 109 H 131/92 98 02/18/24 00:00 98.5 F 108 H 16 111/71 97 02/17/24 23:35 97 02/17/24 23:01 118 H 19 117/93 97 02/17/24 22:30 124/96 95 02/17/24 22:07 108 H 19 102/80 99 02/17/24 21:31 103 H 19 107/72 98 02/17/24 21:14 97.5 F 113 H 19 102/78 99 Pain Assessment - Last Documented Pain Intensity 9 Pain Scale Used 0-10 Pain Scale Intake and Output: Intake & Output 02/16/24 02/17/24 02/18/24 02/19/24 11:59 11:59 11:59 11:59 Intake Total 1272 Output Total 1350 -78 Weight 110.2 kg Lab Results: Lab Results-Last 24 Hours 02/17/24 02/17/24 02/17/24 Range/Units 21:35 21:35 21:35 WBC 22.5 H (3.98-10.04) x10^3/uL RBC 6.23 H (3.93-5.22) x10^6/uL Hgb 17.3 H (11.2-15.7) g/dL Hct 53.4 H (34.1-44.9) % MCV 85.7 (79.4-94.8) fL MCH 27.8 (25.6-32.2) pg MCHC 32.4 (32.2-35.5) g/dL RDW 14.5 H (11.7-14.4) % Plt Count 438 H (182-369) x10^3/uL MPV 8.4 L (9.4-12.3) fL Gran % 85.5 H (34.0-71.1) % Immature Gran % (Auto) 0.8 H (0.001-0.429) % Nucleat RBC Rel Count 0.0 (0.00-0.2) % Eos # (Auto) 0.26 (0.04-0.36) x10^3/uL Immature Gran # (Auto) 0.19 H (0.001-0.031) x10^3u/L Absolute Lymphs (auto) 1.04 L (1.18-3.74) x10^3/uL Absolute Monos (auto) 1.67 H (0.24-0.86) x10^3/uL Absolute Nucleated RBC 0.00 (0.00-0.012) x10^3u/L Lymphocytes % 4.6 L (19.3-51.7) % Monocytes % 7.4 (4.7-12.5) % Eosinophils % 1.2 (0.7-5.8) % Basophils % 0.5 (0.1-1.2) % Absolute Granulocytes 19.24 H (1.56-6.13) x10^3/uL Basophils # 0.11 H (0.01-0.08) x10^3/uL Sodium 138 (135-145) mmol/L Potassium 3.8 (3.5-5.1) mmol/L Chloride 98 (98-107) mmol/L Carbon Dioxide 27 (22-30) mmol/L Anion Gap 17.3 H (5-15) MEQ/L BUN 22 H (7-17) mg/dL Creatinine 1.21 H (0.52-1.04) mg/dL Estimated GFR 64.2 ML/MIN Glucose 161 H (74-106) mg/dL Calcium 10.1 (8.4-10.2) mg/dL Magnesium (1.6-2.3) mg/dL Total Bilirubin 0.80 (0.2-1.3) mg/dL AST 34 (14-36) U/L ALT 34 (0-35) U/L Alkaline Phosphatase 121 (38-126) U/L Serum Total Protein 10.4 H (6.3-8.2) g/dL Albumin 4.9 (3.5-5.0) g/dL Procalcitonin (0.030-0.080) ng/mL Serum HCG, Qual NEGATIVE (NEGATIVE) Influenza Type A Ag (NEGATIVE) Influenza Type B Ag (NEGATIVE) RSV (PCR) (NEGATIVE) SARS-CoV-2 (PCR) (NEGATIVE) 02/17/24 02/17/24 02/18/24 Range/Units 21:38 Unknown 07:18 WBC 11.2 H (3.98-10.04) x10^3/uL RBC 5.59 H (3.93-5.22) x10^6/uL Hgb 15.4 (11.2-15.7) g/dL Hct 47.3 H (34.1-44.9) % MCV 84.6 (79.4-94.8) fL MCH 27.5 (25.6-32.2) pg MCHC 32.6 (32.2-35.5) g/dL RDW 14.8 H (11.7-14.4) % Plt Count 314 (182-369) x10^3/uL MPV 8.9 L (9.4-12.3) fL Gran % 73.8 H (34.0-71.1) % Immature Gran % (Auto) 0.8 H (0.001-0.429) % Nucleat RBC Rel Count 0.0 (0.00-0.2) % Eos # (Auto) 0.16 (0.04-0.36) x10^3/uL Immature Gran # (Auto) 0.09 H (0.001-0.031) x10^3u/L Absolute Lymphs (auto) 1.33 (1.18-3.74) x10^3/uL Absolute Monos (auto) 1.29 H (0.24-0.86) x10^3/uL Absolute Nucleated RBC 0.00 (0.00-0.012) x10^3u/L Lymphocytes % 11.9 L (19.3-51.7) % Monocytes % 11.5 (4.7-12.5) % Eosinophils % 1.4 (0.7-5.8) % Basophils % 0.6 (0.1-1.2) % Absolute Granulocytes 8.23 H (1.56-6.13) x10^3/uL Basophils # 0.07 (0.01-0.08) x10^3/uL Sodium (135-145) mmol/L Potassium (3.5-5.1) mmol/L Chloride (98-107) mmol/L Carbon Dioxide (22-30) mmol/L Anion Gap (5-15) MEQ/L BUN (7-17) mg/dL Creatinine (0.52-1.04) mg/dL Estimated GFR ML/MIN Glucose (74-106) mg/dL Calcium (8.4-10.2) mg/dL Magnesium (1.6-2.3) mg/dL Total Bilirubin (0.2-1.3) mg/dL AST (14-36) U/L ALT (0-35) U/L Alkaline Phosphatase (38-126) U/L Serum Total Protein (6.3-8.2) g/dL Albumin (3.5-5.0) g/dL Procalcitonin 0.357 H (0.030-0.080) ng/mL Serum HCG, Qual (NEGATIVE) Influenza Type A Ag NEGATIVE (NEGATIVE) Influenza Type B Ag NEGATIVE (NEGATIVE) RSV (PCR) NEGATIVE (NEGATIVE) SARS-CoV-2 (PCR) NEGATIVE (NEGATIVE) 02/18/24 02/18/24 02/18/24 Range/Units 07:18 08:07 09:16 WBC (3.98-10.04) x10^3/uL RBC (3.93-5.22) x10^6/uL Hgb (11.2-15.7) g/dL Hct (34.1-44.9) % MCV (79.4-94.8) fL MCH (25.6-32.2) pg MCHC (32.2-35.5) g/dL RDW (11.7-14.4) % Plt Count (182-369) x10^3/uL MPV (9.4-12.3) fL Gran % (34.0-71.1) % Immature Gran % (Auto) (0.001-0.429) % Nucleat RBC Rel Count (0.00-0.2) % Eos # (Auto) (0.04-0.36) x10^3/uL Immature Gran # (Auto) (0.001-0.031) x10^3u/L Absolute Lymphs (auto) (1.18-3.74) x10^3/uL Absolute Monos (auto) (0.24-0.86) x10^3/uL Absolute Nucleated RBC (0.00-0.012) x10^3u/L Lymphocytes % (19.3-51.7) % Monocytes % (4.7-12.5) % Eosinophils % (0.7-5.8) % Basophils % (0.1-1.2) % Absolute Granulocytes (1.56-6.13) x10^3/uL Basophils # (0.01-0.08) x10^3/uL Sodium 138 (135-145) mmol/L Potassium 2.8 L* D 2.8 L* (3.5-5.1) mmol/L Chloride 105 (98-107) mmol/L Carbon Dioxide 21 L (22-30) mmol/L Anion Gap 14.7 (5-15) MEQ/L BUN 28 H (7-17) mg/dL Creatinine 1.18 H (0.52-1.04) mg/dL Estimated GFR 66.2 ML/MIN Glucose 117 H (74-106) mg/dL Calcium 8.2 L D (8.4-10.2) mg/dL Magnesium 1.4 L (1.6-2.3) mg/dL Total Bilirubin 0.90 (0.2-1.3) mg/dL AST 27 (14-36) U/L ALT 27 (0-35) U/L Alkaline Phosphatase 76 (38-126) U/L Serum Total Protein 7.3 (6.3-8.2) g/dL Albumin 3.8 (3.5-5.0) g/dL Procalcitonin (0.030-0.080) ng/mL Serum HCG, Qual (NEGATIVE) Influenza Type A Ag (NEGATIVE) Influenza Type B Ag (NEGATIVE) RSV (PCR) (NEGATIVE) SARS-CoV-2 (PCR) (NEGATIVE) Radiology Exams: Radiology Procedures Category Date Time Status ABDOMEN AND PELVIS W/0 CONTRAS [CT] Stat Exams 02/17/24 21:36 Completed CHEST 1 VIEW (PORTABLE) Stat Exams 02/17/24 22:16 Completed Assessment/Plan (1) Intractable nausea and vomiting Current Visit: Yes Status: Acute Assessment & Plan: Gastroenteritis -Continue IV fluids -Antiemetics and Imodium prn -Likely vrial gastroenteritis -She had fever to 103 Sepsis -Fever to 103 with tachycardia and leukocytosis -No organ damage or hypotension -Check Lactic Acid -This is likely viral. Will not start antibiotics Acute Kidney Injury -Secondary to dehydration -Renal function improved -Note history of IgA nephropathy -Avoid nephrotoxins Hypertension -Continue Cozaar and HCTZ Hyperlipidemia -Continue home meds Hypokalemia and Hypomagnesemia -Replacement ordered IgA Nephropathy -History of renal biopsy Code(s): R11.2 - NAUSEA WITH VOMITING, UNSPECIFIED Telemedicine Encounter - Telemedicine Encounter Telemedicine Encounter: "The entirety of this encounter was performed via Telemedicine" This visit was performed using real-time audio and video connection between my location and thepatients locationwith the assistance of a surrogateat the patients location. Written or verbal consent was obtained from the patient/guardian to perform this visit usingsaint cl[facility] centerhrst[facility] hospitalmedicine technology. Any patient questions regarding the telemedicine interaction were answered.
[2024-02-18] MEDS ORDERED: MEDICATION INTERVENTION MC SCH (14:15)
[2024-02-18] MEDS ORDERED: Klor Con ONE (17:35)
[2024-02-18 19:06] LABS: Appearance Clear (Clear); Bacteria None Seen /HPF (None Seen); Bilirubin Negative (Negative); Epithelial Cells Rare /HPF (None Seen); Glucose, Urine Negative (Negative); Ketones Trace (Negative); Leukocyte Esterase Negative (Negative); Nitrite Negative (Negative); Protein,Urine Dip Trace (Negative); Specific Gravity 1.015 (1.005-1.030); Urobilinogen 0.2 mg/dL (0.2)
[2024-02-18 19:07] LABS: Blood Moderate (Negative)
[2024-02-18] MEDS ORDERED: Wellbutrin SR 150 MG ONE (20:42)
[2024-02-18] MEDS ORDERED: Protonix 20MG Tablet PO ONE (20:43)
[2024-02-18] MEDS ORDERED: ZOLOFT 50 MG TABLET ONE (20:43)
[2024-02-18] MEDS ORDERED: Singulair 10 MG ONE (20:43)
[2024-02-18] MEDS: ZOLOFT 50 MG TABLET PO SCH (20:50)
[2024-02-18] MEDS: Singulair 10 MG PO SCH (20:51)
[2024-02-18] MEDS: Protonix 20MG Tablet PO SCH (20:51)
[2024-02-18] MEDS: Wellbutrin SR 150 MG PO SCH (22:01)
--- NOTE | 2024-02-19 05:07 | PCM.NOTE ---
Date and Time: 02/19/24 050 Subjective Assessment: Ms Delatorre is a 23 year old female with a pmhx of HLD, asthma, anxiety, renal disease and depression who presented to ED 02/17/24 with complaints of vomiting and diarrhea that had started approximately six hours prior to presentation. Initial lab findings remarkable for leukocytosis, KEHINDE, and elevated procal. CT abdomen and pelvis with no acute findings. CXR with no acute findings.Patient meeting sepsis criteria with fever, tachycardia, and leukocytosis. UA pending. WBC now WNL. KEHINDE resolved. Patient also noted with hypokalemia and hypomagnesemia during hospital course with replenishment. 02/19/24: Patient feeling much better today. Still some nausea, no vomiting. Diarrheal episodes decreased - none since overnight. Able to tolerate bland diet with mild nausea. Has complaints of headache. Hypokalemia noted on labs this morning. Most likely can discharge tomorrow if she continues to improve. - Review of Systems Constitutional: No Symptoms Eyes: No Symptoms Ears, Nose, & Throat: No Symptoms Respiratory: No Symptoms Cardiac: No Symptoms Abdominal/Gastrointestinal: Nausea, Diarrhea Genitourinary Symptoms: No Symptoms Musculoskeletal: No Symptoms Skin: No Symptoms Neurological: Headache Psychological: No Symptoms Endocrine: No Symptoms Hematologic/Lymphatic: No Symptoms Immunological/Allergic: No Symptoms Objective Exam General Appearance: no apparent distress Neurologic Exam: alert, oriented x 3, cooperative Skin Exam: pale Eye Exam: PERRL Ears, Nose, Throat Exam: dry mucous membranes Neck Exam: normal inspection Respiratory Exam: normal breath sounds, lungs clear Cardiovascular Exam: regular rate/rhythm, normal heart sounds Gastrointestinal/Abdomen Exam: soft, normal bowel sounds Extremity Exam: normal inspection Back Exam: normal inspection Pelvic Exam: deferred Rectal Exam: deferred Objective Data Vital Signs: Vital Signs - 24 hr Temp Pulse Resp BP Pulse Ox 02/19/24 03:57 97.1 F 98 H 16 118/73 94 L 02/18/24 23:32 97.5 F 92 H 16 109/60 93 L 02/18/24 20:00 97.3 F 103 H 17 109/67 94 L 02/18/24 15:42 97.8 F 111 H 16 115/62 97 02/18/24 11:33 98.0 F 130 H 16 101/63 94 L 02/18/24 07:28 103.0 F 145 H 16 110/63 96 Pain Assessment - Last Documented Pain Intensity 8 Pain Scale Used [facility] Intake and Output: Intake & Output 02/16/24 02/17/24 02/18/24 02/19/24 11:59 11:59 11:59 11:59 Intake Total 1272 2455 Output Total 1350 Balance -78 2455 Weight 110.2 kg Lab Results: Lab Results-Last 24 Hours 02/17/24 02/18/24 02/18/24 Range/Units 18:45 07:18 07:18 WBC 11.2 H (3.98-10.04) x10^3/uL RBC 5.59 H (3.93-5.22) x10^6/uL Hgb 15.4 (11.2-15.7) g/dL Hct 47.3 H (34.1-44.9) % MCV 84.6 (79.4-94.8) fL MCH 27.5 (25.6-32.2) pg MCHC 32.6 (32.2-35.5) g/dL RDW 14.8 H (11.7-14.4) % Plt Count 314 (182-369) x10^3/uL MPV 8.9 L (9.4-12.3) fL Gran % 73.8 H (34.0-71.1) % Immature Gran % (Auto) 0.8 H (0.001-0.429) % Nucleat RBC Rel Count 0.0 (0.00-0.2) % Eos # (Auto) 0.16 (0.04-0.36) x10^3/uL Immature Gran # (Auto) 0.09 H (0.001-0.031) x10^3u/L Absolute Lymphs (auto) 1.33 (1.18-3.74) x10^3/uL Absolute Monos (auto) 1.29 H (0.24-0.86) x10^3/uL Absolute Nucleated RBC 0.00 (0.00-0.012) x10^3u/L Lymphocytes % 11.9 L (19.3-51.7) % Monocytes % 11.5 (4.7-12.5) % Eosinophils % 1.4 (0.7-5.8) % Basophils % 0.6 (0.1-1.2) % Absolute Granulocytes 8.23 H (1.56-6.13) x10^3/uL Basophils # 0.07 (0.01-0.08) x10^3/uL Sodium 138 (135-145) mmol/L Potassium 2.8 L* D (3.5-5.1) mmol/L Chloride 105 (98-107) mmol/L Carbon Dioxide 21 L (22-30) mmol/L Anion Gap 14.7 (5-15) MEQ/L BUN 28 H (7-17) mg/dL Creatinine 1.18 H (0.52-1.04) mg/dL Estimated GFR 66.2 ML/MIN Glucose 117 H (74-106) mg/dL Calcium 8.2 L D (8.4-10.2) mg/dL Magnesium (1.6-2.3) mg/dL Total Bilirubin 0.90 (0.2-1.3) mg/dL AST 27 (14-36) U/L ALT 27 (0-35) U/L Alkaline Phosphatase 76 (38-126) U/L Serum Total Protein 7.3 (6.3-8.2) g/dL Albumin 3.8 (3.5-5.0) g/dL Urine Color Yellow (Yellow) Urine Appearance Clear (Clear) Urine pH 5.0 (4.6-8.0) Ur Specific [place] 1.015 (1.005-1.030) Urine Protein Trace A (Negative) Urine Glucose (UA) Negative (Negative) mg/dL Urine Ketones Trace A (Negative) Urine Blood Moderate A (Negative) Urine Nitrite Negative (Negative) Urine Bilirubin Negative (Negative) Urine Urobilinogen 0.2 (0.2) mg/dL Ur Leukocyte Esterase Negative (Negative) U Hyaline Cast (Auto) 3-5 A (0-2) /LPF Urine Microscopic RBC 6-10 A (0-5) /HPF Urine Microscopic WBC 3-5 (0-5) /HPF Ur Epithelial Cells Rare (None Seen) /HPF Urine Bacteria None Seen (None Seen) /HPF Urine Culture Reflexed NO (NO) 02/18/24 02/18/24 02/18/24 Range/Units 08:07 09:16 13:15 WBC (3.98-10.04) x10^3/uL RBC (3.93-5.22) x10^6/uL Hgb (11.2-15.7) g/dL Hct (34.1-44.9) % MCV (79.4-94.8) fL MCH (25.6-32.2) pg MCHC (32.2-35.5) g/dL RDW (11.7-14.4) % Plt Count (182-369) x10^3/uL MPV (9.4-12.3) fL Gran % (34.0-71.1) % Immature Gran % (Auto) (0.001-0.429) % Nucleat RBC Rel Count (0.00-0.2) % Eos # (Auto) (0.04-0.36) x10^3/uL Immature Gran # (Auto) (0.001-0.031) x10^3u/L Absolute Lymphs (auto) (1.18-3.74) x10^3/uL Absolute Monos (auto) (0.24-0.86) x10^3/uL Absolute Nucleated RBC (0.00-0.012) x10^3u/L Lymphocytes % (19.3-51.7) % Monocytes % (4.7-12.5) % Eosinophils % (0.7-5.8) % Basophils % (0.1-1.2) % Absolute Granulocytes (1.56-6.13) x10^3/uL Basophils # (0.01-0.08) x10^3/uL Sodium (135-145) mmol/L Potassium 2.8 L* 3.1 L (3.5-5.1) mmol/L Chloride (98-107) mmol/L Carbon Dioxide (22-30) mmol/L Anion Gap (5-15) MEQ/L BUN (7-17) mg/dL Creatinine (0.52-1.04) mg/dL Estimated GFR ML/MIN Glucose (74-106) mg/dL Calcium (8.4-10.2) mg/dL Magnesium 1.4 L (1.6-2.3) mg/dL Total Bilirubin (0.2-1.3) mg/dL AST (14-36) U/L ALT (0-35) U/L Alkaline Phosphatase (38-126) U/L Serum Total Protein (6.3-8.2) g/dL Albumin (3.5-5.0) g/dL Urine Color (Yellow) Urine Appearance (Clear) Urine pH (4.6-8.0) Ur Specific [place] (1.005-1.030) Urine Protein (Negative) Urine Glucose (UA) (Negative) mg/dL Urine Ketones (Negative) Urine Blood (Negative) Urine Nitrite (Negative) Urine Bilirubin (Negative) Urine Urobilinogen (0.2) mg/dL Ur Leukocyte Esterase (Negative) U Hyaline Cast (Auto) (0-2) /LPF Urine Microscopic RBC (0-5) /HPF Urine Microscopic WBC (0-5) /HPF Ur Epithelial Cells (None Seen) /HPF Urine Bacteria (None Seen) /HPF Urine Culture Reflexed (NO) 02/18/24 Range/Units 18:00 WBC (3.98-10.04) x10^3/uL RBC (3.93-5.22) x10^6/uL Hgb (11.2-15.7) g/dL Hct (34.1-44.9) % MCV (79.4-94.8) fL MCH (25.6-32.2) pg MCHC (32.2-35.5) g/dL RDW (11.7-14.4) % Plt Count (182-369) x10^3/uL MPV (9.4-12.3) fL Gran % (34.0-71.1) % Immature Gran % (Auto) (0.001-0.429) % Nucleat RBC Rel Count (0.00-0.2) % Eos # (Auto) (0.04-0.36) x10^3/uL Immature Gran # (Auto) (0.001-0.031) x10^3u/L Absolute Lymphs (auto) (1.18-3.74) x10^3/uL Absolute Monos (auto) (0.24-0.86) x10^3/uL Absolute Nucleated RBC (0.00-0.012) x10^3u/L Lymphocytes % (19.3-51.7) % Monocytes % (4.7-12.5) % Eosinophils % (0.7-5.8) % Basophils % (0.1-1.2) % Absolute Granulocytes (1.56-6.13) x10^3/uL Basophils # (0.01-0.08) x10^3/uL Sodium (135-145) mmol/L Potassium 3.6 (3.5-5.1) mmol/L Chloride (98-107) mmol/L Carbon Dioxide (22-30) mmol/L Anion Gap (5-15) MEQ/L BUN (7-17) mg/dL Creatinine (0.52-1.04) mg/dL Estimated GFR ML/MIN Glucose (74-106) mg/dL Calcium (8.4-10.2) mg/dL Magnesium (1.6-2.3) mg/dL Total Bilirubin (0.2-1.3) mg/dL AST (14-36) U/L ALT (0-35) U/L Alkaline Phosphatase (38-126) U/L Serum Total Protein (6.3-8.2) g/dL Albumin (3.5-5.0) g/dL Urine Color (Yellow) Urine Appearance (Clear) Urine pH (4.6-8.0) Ur Specific [place] (1.005-1.030) Urine Protein (Negative) Urine Glucose (UA) (Negative) mg/dL Urine Ketones (Negative) Urine Blood (Negative) Urine Nitrite (Negative) Urine Bilirubin (Negative) Urine Urobilinogen (0.2) mg/dL Ur Leukocyte Esterase (Negative) U Hyaline Cast (Auto) (0-2) /LPF Urine Microscopic RBC (0-5) /HPF Urine Microscopic WBC (0-5) /HPF Ur Epithelial Cells (None Seen) /HPF Urine Bacteria (None Seen) /HPF Urine Culture Reflexed (NO) Radiology Exams: Radiology Procedures Category Date Time Status ABDOMEN AND PELVIS W/0 CONTRAS [CT] Stat Exams 02/17/24 21:36 Completed CHEST 1 VIEW (PORTABLE) Stat Exams 02/17/24 22:16 Completed Assessment/Plan (1) Intractable nausea and vomiting Current Visit: Yes Status: Acute Assessment & Plan: -CT abd/pelvis reviewed with no acute findings -most likely secondary to gastroenteritis -Continue IV fluids -Antiemetics and Imodium prn -ADAT Code(s): R11.2 - NAUSEA WITH VOMITING, UNSPECIFIED (2) Sepsis Current Visit: Yes Status: Acute Assessment & Plan: -Meeting criteria with fever to 103 with tachycardia and leukocytosis -CXR with no acute findings -CT abd/pelvis with no acute findings -UA unremarkable -Most likely viral gastroenteritis -No longer meets criteria 02/19/24 - WBC reviewed and WNL, afebrile, mild tachycardia (3) KEHINDE (acute kidney injury) Current Visit: Yes Status: Acute Assessment & Plan: -Secondary to dehydration -CMP reviewed, creat now at 0.68 - resolved -Note history of IgA nephropathy -History of renal biopsy -Avoid nephrotoxins -Monitor renal/lytes daily Code(s): N17.9 - ACUTE KIDNEY FAILURE, UNSPECIFIED (4) HTN (hypertension) Current Visit: Yes Status: Acute Assessment & Plan: -Continue Cozaar and HCTZ Code(s): I10 - ESSENTIAL (PRIMARY) HYPERTENSION (5) HLD (hyperlipidemia) Current Visit: Yes Status: Acute Assessment & Plan: -Continue home meds Code(s): E78.5 - HYPERLIPIDEMIA, UNSPECIFIED (6) Hypokalemia Current Visit: Yes Status: Acute Assessment & Plan: -Replacement per potassium protocol -Potassium level reviewed at 3.2 this morning -Monitor lytes daily -tele Code(s): E87.6 - HYPOKALEMIA (7) Hypomagnesemia Current Visit: Yes Status: Acute Assessment & Plan: -Replacement per magnesium protocol as needed -CMP reviewed, mag level at 2.1 - resolved -monitor lytes daily Code(s): E83.42 - HYPOMAGNESEMIA (8) Headache Current Visit: Yes Status: Acute Assessment & Plan: -tylenol not helping - will add norco and monitor Code(s): R51.9 - HEADACHE, UNSPECIFIED
[2024-02-19 05:23] LABS: Mean Cell Volume 85.2 fL (79.4-94.8); Mean Corpuscular Hgb Concent. 31.7 g/dL (32.2-35.5); Mean Platelet Volume 8.7 fL (9.4-12.3); Platelet Count 253 x10^3/uL (182-369); Red Blood Count 4.81 x10^6/uL (3.93-5.22); Red Cell Distribution Width 14.5 % (11.7-14.4); White Blood Count 8.3 x10^3/uL (3.98-10.04)
[2024-02-19 05:46] LABS: ALBUMIN 3.1 g/dL (3.5-5.0); ANION GAP 12.1 MEQ/L (5-15); BILIRUBIN,TOTAL 0.6 mg/dL (0.2-1.3); Calcium 8.4 mg/dL (8.4-10.2); Creatinine 1 0.68 mg/dL (0.52-1.04); EST GLOMERULAR FILTRATION RATE 124.7 ML/MIN; MAGNESIUM 2.1 mg/dL (1.6-2.3); Potassium 3.2 mmol/L (3.5-5.1)
[2024-02-19] MEDS: hydroDIURIL 25 MG PO SCH (09:41)
[2024-02-19] MEDS: POTASSIUM CHLORIDE 20 mEq IN WATER 100ML 100 ML IV SCH (09:41)
[2024-02-19] MEDS: Cozaar 50 MG PO SCH (09:41)
[2024-02-19] MEDS ORDERED: NON-FORMULARY ITEM (Sertraline Hcl [Zoloft] 100 MG Tablet) PO SCH (10:00)
[2024-02-19] MEDS ORDERED: BUPROPION HCL 150 MG PO SCH (10:00)
[2024-02-19] MEDS ORDERED: BUDESONIDE PO SCH (10:00)
[2024-02-19] MEDS ORDERED: NON-FORMULARY ITEM (Losartan/Hydrochlorothiazide [Losartan-Hctz 100-25 Mg Tab] 1 EACH Tabl PO SCH (10:00)
[2024-02-19] MEDS ORDERED: Wellbutrin XL 150 MG PO SCH (10:00)
[2024-02-19] MEDS: NORCO 5/325 MG PO PRN (12:54)
[2024-02-19] MEDS: Klor Con PO ONE (12:55)
[2024-02-19] MEDS: PATIENT OWN MEDICATION PO SCH (13:30)
[2024-02-19] MEDS: ZOLOFT 50 MG TABLET PO SCH (21:12)
[2024-02-19] MEDS: Protonix 20MG Tablet PO SCH (21:12)
[2024-02-19] MEDS: Singulair 10 MG PO SCH (21:12)
[2024-02-19] MEDS: Ativan 0.5 MG PO PRN (22:55)
--- NOTE | 2024-02-20 05:14 | PCM.DS ---
Discharge Summary Date of Admission: 02/17/24 23:47 Date of Discharge: 02/20/24 Admitting Physician: SONIA LINARES MD Primary Care Provider: MARQUISE GAMBOA DO Allergies Allergies amoxicillin Allergy (Verified 02/17/24 21:01) Hives cefaclor [From Ceclor] Allergy (Verified 02/17/24 21:01) Hives cefazolin Allergy (Verified 02/17/24 21:01) Hives paroxetine [From Paxil] Allergy (Verified 02/17/24 21:01) hallucinations Hospital Summary - Hospital Course Hospital Course: Ms Delatorre is a 23 year old female with a pmhx of HLD, asthma, anxiety, renal disease and depression who presented to ED 02/17/24 with complaints of vomiting and diarrhea that had started approximately six hours prior to presentation. Initial lab findings remarkable for leukocytosis, KEHINDE, and elevated procal. CT abdomen and pelvis with no acute findings. CXR with no acute findings.Patient meeting sepsis criteria with fever, tachycardia, and leukocytosis. UA pending. WBC now WNL. KEHINDE resolved. Patient also noted with hypokalemia and hypomagnesemia during hospital course with replenishment. Vomiting and diarrhea resolved. Still has some nausea. Able to tolerate full diet. Potassium replenished -otherwise labs stable. Will discharge with zofran and potassium supplementation. Discharge Note New Diagnosis:Viral gastroenteritis Follow Up: pcp medications: zofran/potassium Outpatient testing to order: Latest Assessment & Plan (1) Intractable nausea and vomiting Current Visit: Yes Status: Acute Assessment & Plan: -CT abd/pelvis reviewed with no acute findings -most likely secondary to gastroenteritis -Continue IV fluids -Antiemetics and Imodium prn -ADAT 02/19: -tolerating full diet -some nausea - no v/d -send home with zofran Code(s): R11.2 - NAUSEA WITH VOMITING, UNSPECIFIED (2) Sepsis Current Visit: Yes Status: Acute Assessment & Plan: -Meeting criteria with fever to 103 with tachycardia and leukocytosis -CXR with no acute findings -CT abd/pelvis with no acute findings -UA unremarkable -Most likely viral gastroenteritis -No longer meets criteria 02/19/24 - WBC reviewed and WNL, afebrile, mild tachycardia 02/19: -resolved (3) KEHINDE (acute kidney injury) Current Visit: Yes Status: Acute Assessment & Plan: -Secondary to dehydration -CMP reviewed, creat now at 0.68 - resolved -Note history of IgA nephropathy -History of renal biopsy -Avoid nephrotoxins -Monitor renal/lytes daily 02/19: -CMP reviewed - resolved Code(s): N17.9 - ACUTE KIDNEY FAILURE, UNSPECIFIED (4) HTN (hypertension) Current Visit: Yes Status: Acute Assessment & Plan: -Continue Cozaar and HCTZ Code(s): I10 - ESSENTIAL (PRIMARY) HYPERTENSION (5) HLD (hyperlipidemia) Current Visit: Yes Status: Acute Assessment & Plan: -Continue home meds Code(s): E78.5 - HYPERLIPIDEMIA, UNSPECIFIED (6) Hypokalemia Current Visit: Yes Status: Acute Assessment & Plan: -Replacement per potassium protocol -Potassium level reviewed at 3.2 this morning -Monitor lytes daily -tele 02/19: -potassium replenishment -will send home on a few days of supplementation - recheck with PCP next week Code(s): E87.6 - HYPOKALEMIA (7) Hypomagnesemia Current Visit: Yes Status: Acute Assessment & Plan: -Replacement per magnesium protocol as needed -CMP reviewed, mag level at 2.1 - resolved -monitor lytes daily Code(s): E83.42 - HYPOMAGNESEMIA (8) Headache Current Visit: Yes Status: Acute Assessment & Plan: -tylenol not helping - will add norco and monitor Code(s): R51.9 - HEADACHE, UNSPECIFIED I spent 35 minutes [id number] with the patient on the day of discharge performing discharge exam, discussing hospital stay and discharge instructions with patient and caregivers, preparation of discharge records, prescriptions & referral forms and addressing any questions/concerns the patient had as documented above. - Vitals & Intake/Output Vital Signs: Vital Signs Temperature 97.8 F 02/20/24 03:33 Pulse Rate 100 H 02/19/24 23:45 Respiratory Rate 16 02/20/24 03:33 Blood Pressure 166/76 02/19/24 23:45 O2 Sat by Pulse Oximetry 97 02/19/24 23:45 Intake & Output: Intake & Output 02/17/24 02/18/24 02/19/24 02/20/24 11:59 11:59 11:59 11:59 Intake Total 1272 2515 800 Output Total 1350 1 Balance -78 2515 790 Weight 110.2 kg 107.5 kg - Lab Result Diagrams: 02/20/24 07:46 02/20/24 07:46 Lab Results-Last 24 Hrs: Lab Results-Last 24 Hours 02/19/24 02/19/24 02/19/24 Range/Units 05:18 05:18 10:30 WBC 8.3 (3.98-10.04) x10^3/uL RBC 4.81 (3.93-5.22) x10^6/uL Hgb 13.0 (11.2-15.7) g/dL Hct 41.0 (34.1-44.9) % MCV 85.2 (79.4-94.8) fL MCH 27.0 (25.6-32.2) pg MCHC 31.7 L (32.2-35.5) g/dL RDW 14.5 H (11.7-14.4) % Plt Count 253 (182-369) x10^3/uL MPV 8.7 L (9.4-12.3) fL Sodium 135 (135-145) mmol/L Potassium 3.2 L 3.6 (3.5-5.1) mmol/L Chloride 103 (98-107) mmol/L Carbon Dioxide 23 (22-30) mmol/L Anion Gap 12.1 (5-15) MEQ/L BUN 10 (7-17) mg/dL Creatinine 0.68 (0.52-1.04) mg/dL Estimated GFR 124.7 ML/MIN Glucose 77 (74-106) mg/dL Calcium 8.4 (8.4-10.2) mg/dL Magnesium 2.1 (1.6-2.3) mg/dL Total Bilirubin 0.60 (0.2-1.3) mg/dL AST 55 H (14-36) U/L ALT 40 H (0-35) U/L Alkaline Phosphatase 69 (38-126) U/L Serum Total Protein 6.0 L (6.3-8.2) g/dL Albumin 3.1 L (3.5-5.0) g/dL 02/19/24 Range/Units 15:13 WBC (3.98-10.04) x10^3/uL RBC (3.93-5.22) x10^6/uL Hgb (11.2-15.7) g/dL Hct (34.1-44.9) % MCV (79.4-94.8) fL MCH (25.6-32.2) pg MCHC (32.2-35.5) g/dL RDW (11.7-14.4) % Plt Count (182-369) x10^3/uL MPV (9.4-12.3) fL Sodium (135-145) mmol/L Potassium 3.1 L (3.5-5.1) mmol/L Chloride (98-107) mmol/L Carbon Dioxide (22-30) mmol/L Anion Gap (5-15) MEQ/L BUN (7-17) mg/dL Creatinine (0.52-1.04) mg/dL Estimated GFR ML/MIN Glucose (74-106) mg/dL Calcium (8.4-10.2) mg/dL Magnesium (1.6-2.3) mg/dL Total Bilirubin (0.2-1.3) mg/dL AST (14-36) U/L ALT (0-35) U/L Alkaline Phosphatase (38-126) U/L Serum Total Protein (6.3-8.2) g/dL Albumin (3.5-5.0) g/dL Discharge Exam General Appearance: no apparent distress Neurologic Exam: alert, oriented x 3, cooperative Eye Exam: PERRL Ears, Nose, Throat Exam: normal ENT inspection Neck Exam: normal inspection Respiratory Exam: normal breath sounds, lungs clear Cardiovascular Exam: regular rate/rhythm, normal heart sounds Gastrointestinal/Abdomen Exam: soft, normal bowel sounds Pelvic Exam: deferred Rectal Exam: deferred Back Exam: normal inspection Extremity Exam: normal inspection Skin Exam: pale Final Diagnosis/Problem List - Final Discharge Diagnosis/Problem (1) Intractable nausea and vomiting Current Visit: Yes Status: Resolved Code(s): R11.2 - NAUSEA WITH VOMITING, UNSPECIFIED (2) Sepsis Current Visit: Yes Status: Resolved (3) KEHINDE (acute kidney injury) Current Visit: Yes Status: Resolved Code(s): N17.9 - ACUTE KIDNEY FAILURE, UNSPECIFIED (4) HTN (hypertension) Current Visit: Yes Status: Chronic Code(s): I10 - ESSENTIAL (PRIMARY) HYPERTENSION (5) HLD (hyperlipidemia) Current Visit: Yes Status: Chronic Code(s): E78.5 - HYPERLIPIDEMIA, UNSPECIFIED (6) Hypokalemia Current Visit: Yes Status: Acute Code(s): E87.6 - HYPOKALEMIA (7) Hypomagnesemia Current Visit: Yes Status: Resolved Code(s): E83.42 - HYPOMAGNESEMIA (8) Headache Current Visit: Yes Status: Resolved Code(s): R51.9 - HEADACHE, UNSPECIFIED - Discharge Discharge Date: 02/20/24 Disposition: Home, Self-Care Condition: Stable Prescriptions: New Potassium Chloride 20 meq PO DAILY 3 Days #3 tablet Ondansetron ODT 4 MG [Zofran Odt 4 mg] 4 mg PO Q6HPRN PRN 30 Days #20 tab PRN Reason: Nausea Continue Montelukast Sodium [Singulair] 10 mg PO DAILY Sertraline HCl [Zoloft] 50 mg PO DAILY [place]-3 Fatty Acids/Fish Oil [Fish Oil 1,000 mg Capsule] 2,000 mg PO BID Pantoprazole 20 mg [Protonix 20MG Tablet] 20 mg PO DAILY Budesonide [T[place]pe[place]] 4 mg PO DAILY buPROPion HCL [Bupropion HCl Sr] 150 mg PO DAILY Losartan/Hydrochlorothiazide [Losartan-Hctz 100-25 mg Tab] 1 tab PO DAILY Follow up with: MARQUISE GAMBOA DO [Primary Care Provider] - 03/08/24 3:30 pm
[2024-02-20] MEDS ORDERED: PATIENT OWN MEDICATION PO SCH (07:00)
[2024-02-20 07:04] VITALS: BP 103/56; PULSE 83; RESP 18; TEMP 98.9; O2SAT 96
[2024-02-20 07:50] LABS: Absolute Neutrophil Ct (ANC) 4.59 x10^3/uL (1.56-6.13); BASOPHIL % 0.9 % (0.1-1.2); Basophil (Absolute #) 0.08 x10^3/uL (0.01-0.08); Eosinophil (Absolute #) 0.46 x10^3/uL (0.04-0.36); Hemoglobin 13.4 g/dL (11.2-15.7); IMMATURE GRAN # 0.05 x10^3u/L (0.001-0.031); IMMATURE GRAN % 0.5 % (0.001-0.429); Lymphocyte (Absolute #) 2.71 x10^3/uL (1.18-3.74); Lymphocytes % 29.6 % (19.3-51.7); Mean Corpuscular Hemoglobin 27.1 pg (25.6-32.2); Mean Corpuscular Hgb Concent. 31.9 g/dL (32.2-35.5); Mean Platelet Volume 8.4 fL (9.4-12.3); Monocyte (Absolute #) 1.28 x10^3/uL (0.24-0.86); Platelet Count 251 x10^3/uL (182-369); Red Blood Count 4.94 x10^6/uL (3.93-5.22); Red Cell Distribution Width 14.3 % (11.7-14.4); White Blood Count 9.2 x10^3/uL (3.98-10.04)
[2024-02-20] MEDS: ZOFRAN ODT 4 MG PO PRN (08:02)
[2024-02-20 08:05] LABS: ALBUMIN 3.7 g/dL (3.5-5.0); ANION GAP 11.4 MEQ/L (5-15); BILIRUBIN,TOTAL 0.3 mg/dL (0.2-1.3); Calcium 8.9 mg/dL (8.4-10.2); Creatinine 1 0.64 mg/dL (0.52-1.04); EST GLOMERULAR FILTRATION RATE 126.5 ML/MIN; MAGNESIUM 1.6 mg/dL (1.6-2.3); Potassium 3.3 mmol/L (3.5-5.1); Total Protein 6.8 g/dL (6.3-8.2)
[2024-02-20] MEDS: Klor Con PO ONE (08:30)
[2024-02-20] MEDS ORDERED: Wellbutrin XL 150 MG PO SCH (22:00)
== END 2024-02-20 11:23 | disposition home or self-care (01) ==
LOC: ED 20:58 → MED SURG 23:47
PROVIDERS: ADMIT Student in an Organized Health Care Education/Training Program; ATTEND Student in an Organized Health Care Education/Training Program
DX: R11.2 Nausea with vomiting, unspecified (principal); A41.9 Sepsis, unspecified organism; N17.9 Acute kidney failure, unspecified; I10 Essential (primary) hypertension; E78.5 Hyperlipidemia, unspecified; E87.6 Hypokalemia; E83.42 Hypomagnesemia; R51.9 Headache, unspecified; Z79.899 Other long term (current) drug therapy
CPT/HCPCS: 0241U; 36415; 71045; 74176; 80053; 81001; 83735; 84132; 84145; 84703; 85025; 85027; 87798; 93268; 96360; 96374; 96375; 99285; G0378; Q3014; J1200; J2405; J3480; Q0162; A9270-GY; J3475

== ENCOUNTER 2024-04-17 12:57 | Emergency (ER) | payer OTHER ==
--- NOTE | 2024-04-17 13:13 | ERPHSYRPT ---
- History of Present Illness Time Seen by Provider: 04/17/24 13:13 Source: patient, family Exam Limitations: no limitations Physician History: This is a 23-year-old white female patient who picked up a stray cat and the stray cat bit her left arm/wrist. It is painful. She has kept it clean and use hydroperoxide to the site. Patient states that the cat did not appear to have any rabies. The patient's last tetanus shot was 10 years ago. Patient is allergic to amoxicillin and cephalosporins. The patient's primary care provider is Dr. Gamboa. Patient has a history of hypertension, COPD and gastroesophageal reflux disease. Timing/Duration: today Quality: painful Severity: mild Location: extremities (Dorsal aspect distal left forearm/wrist) Possible Causes: other (Cat bite) Associated Symptoms: denies symptoms Allergies/Adverse Reactions: amoxicillin Allergy (Verified 04/17/24 13:12) Hives cefaclor [From Ceclor] Allergy (Verified 04/17/24 13:12) Hives cefazolin Allergy (Verified 04/17/24 13:12) Hives paroxetine [From Paxil] Allergy (Verified 04/17/24 13:12) hallucinations Home Medications: Montelukast Sodium [Singulair] 10 mg PO DAILY 07/23/16 [History] Sertraline HCl [Zoloft] 50 mg PO DAILY 06/09/18 [History] [place]-3 Fatty Acids/Fish Oil [Fish Oil 1,000 mg Capsule] 2,000 mg PO BID 06/15/18 [History] Pantoprazole 20 mg [Protonix 20MG Tablet] 20 mg PO DAILY 02/26/21 [History] Budesonide [Tarpeyo] 4 mg PO DAILY 02/17/24 [History] Losartan/Hydrochlorothiazide [Losartan-Hctz 100-25 mg Tab] 1 tab PO DAILY 02/17/24 [History] buPROPion HCL [Bupropion HCl Sr] 150 mg PO DAILY 02/17/24 [History] Lisinopril 5 mg [Zestril 5 MG] 5 mg PO DAILY 04/17/24 [History] Hx Tetanus, Diphtheria Vaccination/Date Given: Yes Hx Influenza Vaccination/Date Given: Yes Hx Pneumococcal Vaccination/Date Given: No Travel Risk - International Travel Have you traveled outside of the country in past 3 weeks: No - Emerging Infectious Disease Are you exhibiting symptoms associated with any current EIDs: No Symptoms: Diarrhea, Vomitting - Review of Systems Constitutional: No Symptoms Eyes: No Symptoms Ears, Nose, & Throat: No Symptoms Respiratory: No Symptoms Cardiac: No Symptoms Abdominal/Gastrointestinal: No Symptoms Genitourinary Symptoms: No Symptoms Musculoskeletal: No Symptoms Skin: Other (Cat bite distal left forearm/wrist) Neurological: No Symptoms Psychological: No Symptoms Endocrine: No Symptoms Hematologic/Lymphatic: No Symptoms Immunological/Allergic: No Symptoms All Other Systems: Reviewed and Negative - Past Medical History Pertinent Past Medical History: Yes Neurological History: No Pertinent History ENT History: No Pertinent History Cardiac History: High Cholesterol Respiratory History: Asthma, Other Endocrine Medical History: Other Musculoskeletal History: Other GI Medical History: Gallbladder Disease History: Renal Disease Psycho-Social History: Anxiety, Depression Female Reproductive Disorders: No Pertinent History Other Medical History: IGA nephropathy (dx 2018, recently approved for new medication), COVID-19, L wrist (05/27/23), cholecystectomy (2018), kidney biopsy (2019), Anixety, Depression - Past Surgical History Past Surgical History: Yes Neuro Surgical History: No Pertinent History Cardiac: No Pertinent History Respiratory: No Pertinent History Gastrointestinal: Cholecystectomy Genitourinary: Other Musculoskeletal: No Pertinent History Female Surgical History: No Pertinent History Other Surgical History: Kidney Biopsy, Bladder scope Significant Family History: no pertinent family hx - Female History Hx Last Menstrual Period: 3 weeks ago - Social History Drug Use: none - Social Determinants of Health Will the patient participate in the screening: Yes Do you worry about a steady place to live?: No In the past 12 months,have you had to go without utilities?: No Transportation Issues: No Has anyone in your support network made you feel unsafe?: No Have you or anyone in your house had to go w/o enough food: No - Nursing Vital Signs Nursing Vital Signs: Initial Vital Signs Temperature 98 F 04/17/24 13:13 Pulse Rate 84 04/17/24 13:13 Respiratory Rate 18 04/17/24 13:13 Blood Pressure 127/87 04/17/24 13:13 O2 Sat by Pulse Oximetry 100 04/17/24 13:13 Pain Scale Pain Intensity 6 - Physical Exam General Appearance: no apparent distress, alert, anxiety Eye Exam: PERRL/EOMI, eyes nml inspection Ears, Nose, Throat Exam: normal ENT inspection, moist mucous membranes Neck Exam: normal inspection, non-tender, supple, full range of motion Respiratory Exam: airway intact, No chest tenderness, No respiratory distress Gastrointestinal/Abdomen Exam: No tenderness Pelvic Exam: not done Rectal Exam: not done Back Exam: normal inspection, normal range of motion, No CVA tenderness, No vertebral tenderness Extremity Exam: normal range of motion, pelvis stable, tenderness (In the area of the 5 cat bite puncture sites dorsal aspect distal left forearm and at the level of the wrist), No deformities Neurologic Exam: alert, oriented x 3, cooperative, glaze handler II-XII nml as tested, sensation nml Skin Exam: normal color, warm, dry Lymphatic Exam: No adenopathy SpO2 Interpretation: normal O2 Delivery: Room Air - Course Nursing assessment & vital signs reviewed: Yes Ordered Tests: Medication Summary Discontinued Medications Generic Name Dose Route Start Last Admin Trade Name Freq PRN Reason Stop Dose Admin Diphtheria/Tetanus/Acell Pertussis 0.5 ml 04/17/24 13:28 04/17/24 13:38 Tdap --Diph,Pertuss(Acell),Tet Vac/Pf 0.5 Ml Vial IM 04/17/24 13:29 0.5 ml .ONCE ONE Administration Diphtheria/Tetanus/Acell Pertussis Confirm 04/17/24 13:31 Tdap --Diph,Pertuss(Acell),Tet Vac/Pf 0.5 Ml Vial Administered 04/17/24 13:32 Dose 0.5 ml IM .STK-MED ONE - Progress Progress: unchanged Progress Note: 04/17/24 13:49 My medical decision making and assignment of low complexity to this patient's medical issue today, is based on review of the patient's past medical history, review of the patient's medication list, review the patient drug allergy list, history of present illness and physical findings on examination. The workup in this patient does not require any laboratory radiographic studies. Differential diagnosis includes but is not limited to cat bite, cat scratch Counseled pt/family regarding: diagnosis Medical Desision Making - Diagnostic Testing Diagnostic test were ordered, analyzed, and reviewed by me: No - Risk of complications The pt has a mod risk of morbidity or mortality based on: Need for prescription drug management - Departure Departure Disposition: Home Clinical Impression: Cat bite of forearm Condition: Stable Critical Care Time: No Referrals: MARQUISE GAMBOA DO [Primary Care Provider] - Follow up/PCP as directed Additional Instructions: Keep cat bite puncture wounds clean 1-2 times daily with soapy water. Do not apply lotions or ointments or creams to the site. Take your antibiotics as prescribed. Use Tylenol and ibuprofen for pain control if there are no contraindications to do so. Call your primary care provider on 04/19/2024, to make arrangements for follow-up appointment for further evaluation management. Prescriptions: Azithromycin 250 mg [Zithromax 250 MG TABLET] 250 mg PO ZPACK #6 tablet
[2024-04-17 13:19] VITALS: BP 127/87; PULSE 84; RESP 18; TEMP 98; O2SAT 100
[2024-04-17] MEDS ORDERED: Adacel Vial IM ONE (13:31)
[2024-04-17] MEDS: Adacel Vial IM ONE (13:38)
== END 2024-04-17 14:00 | disposition home or self-care (01) ==
LOC: ED 12:57
DX: S50.872A Other superficial bite of left forearm, initial encounter (principal); W55.01XA Bitten by cat, initial encounter; Y93.K9 Activity, other involving animal care; I10 Essential (primary) hypertension; E78.5 Hyperlipidemia, unspecified; Z79.899 Other long term (current) drug therapy; Z23 Encounter for immunization
CPT/HCPCS: 90471; 90715; 99281; 99283